=== PATIENT | male | born 1940 | race Caucasian/White ===

== ENCOUNTER 2019-06-10 09:32 | Outpatient (CLI) | payer MEDICARE, SELFPAY ==
[2019-06-10 11:15] LABS: Anion Gap 16.1 mmol/L (7-16); Blood Urea Nitrogen 46 mg/dL (7-18); Calcium 8.7 mg/dL (8.5-10.1); Carbon Dioxide 24 mmol/L (21-32); Chloride 109 mmol/L (98-108); Estimated Glomerular Filt Rate 30; Glucose 79 mg/dL (70-99); Osmolality Calculated 308 mOsm/kg (285-295); Potassium 5.1 mmol/L (3.5-5.1); Sodium 144 mmol/L (136-145)
== END 2019-06-10 09:33 | disposition home or self-care (01) ==
PROVIDERS: PCP Family Medicine; Visit Provider Family Medicine
DX: E87.5 Hyperkalemia (principal)
CPT/HCPCS: 36415; 80048

== ENCOUNTER 2019-06-11 11:07 | Outpatient (CLI) | payer MEDICARE, OTHER, SELFPAY ==
--- NOTE | 2019-06-11 11:09 | ECG_ITS ---
Measurements Intervals [place] Rate: 76 P: 77 WI: 240 QRS: 82 QRSD: 95 T: 8 QT: 337 QTc: 379 Interpretive Statements SINUS RHYTHM WITH FIRST DEGREE AV BLOCK DELAYED PRECORDIAL R/S TRANSITION BORDERLINE ST-T WAVE ABNORMALITY- INFERIOR LEADS BASELINE ARTIFACT- II, III, AVL ABNORMAL ECG Electronically Signed On 06-11-2019 11:27:52 ROLL LINE OPERATOR by Bryant Evans D.O.
[2019-06-11 11:52] LABS: BNP 96.4 pg/mL (0-100)
== END 2019-06-11 11:08 | disposition home or self-care (01) ==
PROVIDERS: PCP Family Medicine; Visit Provider Family Medicine
DX: Z01.810 Encounter for preprocedural cardiovascular examination (principal); I10 Essential (primary) hypertension
CPT/HCPCS: 36415; 83880; 93005

== ENCOUNTER 2019-07-01 11:33 | Outpatient (CLI) | payer MEDICARE, OTHER, SELFPAY ==
--- NOTE | 2019-07-01 12:30 | ECHO_ITS ---
Patient Info Name: Villa Rush Age: 79 years : 1940 Gender: Male Ht: 69 in Wt: 181 lbs BSA: 2.01 m2 HR: 80 bpm BP: 143 / 86 mmHg Heart Rhythm: Sinus Rhythm Technical Quality: Good Exam Date: 07/01/2019 12:26 PM Exam Location: [facility], [place] Patient Status: Outpatient Admit Date: 07/01/2019 Staff Ordering Physician: Savannah Patten MD Program Counselor: Villa Love RDCS Attending Provider: Savannah Patten MD Referring Physician: Sandor ALVAREZ; Exam Type: CA echo doppler color flow Study Info Indications I35.0 - Nonrheumatic aortic (valve) stenosis Complete two-dimensional, color flow and Doppler transthoracic echocardiogram is performed. Strain analysis performed. History/Risk Factors Aortic stenosis. Summary 1. Left ventricular chamber dimension is normal. 2. Left ventricular systolic function is normal, estimated at 65-70%. 3. The left ventricular diastolic function is abnormal. 4. E/e' 10 is mildly elevated. 5. Global longitudinal strain is normal at -17.0%. 6. Left atrial chamber dimension is mildly enlarged. 7. The aortic valve is not well visualized. 8. There is moderate aortic valve stenosis by a peak velocity of 377 cm/s, mean gradient of 30 mmHg, and aortic valve area of 1.1 cm2. 9. There is moderate aortic valve sclerosis. Left Ventricle E/e' 10 is mildly elevated. Global longitudinal strain is normal at -17.0%. Left ventricular chamber dimension is normal. Left ventricular systolic function is normal, estimated at 65-70%. The left ventricular diastolic function is abnormal. Right Ventricle Right ventricular chamber dimension is normal. Right ventricular systolic function is normal. Left Atria Left atrial chamber dimension is mildly enlarged. Right Atria Right atrial chamber dimension is normal. Aortic Valve There is moderate aortic valve stenosis by a peak velocity of 377 cm/s, mean gradient of 30 mmHg, and aortic valve area of 1.1 cm2. Cannot determine number of aortic valve leaflets. The aortic valve is not well visualized. There is moderate aortic valve sclerosis. There is no aortic valve regurgitation. Pulmonic Valve There is no pulmonic regurgitation. Mitral Valve There is no mitral valve stenosis. There is no mitral valve regurgitation. Tricuspid Valve There is no tricuspid valve regurgitation. Pericardium/Pleural There is no pericardial effusion. Inferior Vena Cava Normal inferior vena cava with >50% collapse upon inspiration consistent with normal right atrial pressure, 5 mmHg. Aorta The aortic root size at the sinus of Valsalva is normal. Left Ventricular Outflow Tract Name Value Normal LVOT 2D LVOT Diameter 2.2 cm LVOT Doppler LVOT Peak Velocity 106 cm/s LVOT Peak Gradient 4 mmHg LVOT Mean Gradient 2 mmHg LVOT VTI 26 cm LVOT VTI/AV VTI Ratio 0.3 LVOT Stroke Volume 98 ml Mitral Valve
== END 2019-07-01 11:34 | disposition home or self-care (01) ==
LOC: CHSIMG 11:35
PROVIDERS: PCP Family Medicine; Visit Provider Internal Medicine Nephrology
DX: N18.3 Chronic kidney disease, stage 3 (moderate) (principal); D63.8 Anemia in other chronic diseases classified elsewhere; R80.8 Other proteinuria; E11.21 Type 2 diabetes mellitus with diabetic nephropathy; E11.65 Type 2 diabetes mellitus with hyperglycemia; I12.9 Hypertensive chronic kidney disease with stage 1 through stage 4 chronic kidney disease, or unspecified chronic kidney disease; H40.9 Unspecified glaucoma; I20.9 Angina pectoris, unspecified; E78.2 Mixed hyperlipidemia; K21.9 Gastro-esophageal reflux disease without esophagitis; Z87.442 Personal history of urinary calculi; I38 Endocarditis, valve unspecified; E87.5 Hyperkalemia
CPT/HCPCS: 93306

== ENCOUNTER 2019-07-22 12:32 | Outpatient (CLI) | payer MEDICARE, SELFPAY ==
[2019-07-22 13:15] LABS: Albumin Level 3.7 g/dL (3.4-5.0); Blood Urea Nitrogen 30 mg/dL (7-18); Calcium 9.2 mg/dL (8.5-10.1); Carbon Dioxide 31 mmol/L (21-32); Chloride 106 mmol/L (98-108); Estimated Glomerular Filt Rate 36; Glucose 108 mg/dL (70-99); Osmolality Calculated 307 mOsm/kg (285-295); Phosphorus 3.2 mg/dL (2.6-4.7); Sodium 145 mmol/L (136-145)
== END 2019-07-22 12:33 | disposition home or self-care (01) ==
LOC: CHSLAB 12:35
PROVIDERS: PCP Family Medicine; Visit Provider Internal Medicine Nephrology
DX: I12.9 Hypertensive chronic kidney disease with stage 1 through stage 4 chronic kidney disease, or unspecified chronic kidney disease (principal); N18.3 Chronic kidney disease, stage 3 (moderate); D63.8 Anemia in other chronic diseases classified elsewhere; R80.9 Proteinuria, unspecified; E11.21 Type 2 diabetes mellitus with diabetic nephropathy; E11.65 Type 2 diabetes mellitus with hyperglycemia; H40.9 Unspecified glaucoma; I20.9 Angina pectoris, unspecified; E78.2 Mixed hyperlipidemia; K21.9 Gastro-esophageal reflux disease without esophagitis; Z87.442 Personal history of urinary calculi; I38 Endocarditis, valve unspecified; E87.5 Hyperkalemia
CPT/HCPCS: 36415; 80069

== ENCOUNTER 2019-07-23 10:45 | Outpatient (CLI) | payer MEDICARE, SELFPAY ==
[2019-07-23 11:40] LABS: Albumin Level 3.7 g/dL (3.4-5.0); Blood Urea Nitrogen 27 mg/dL (7-18); Carbon Dioxide 33 mmol/L (21-32); Chloride 107 mmol/L (98-108); Estimated Glomerular Filt Rate 37; Glucose 90 mg/dL (70-99); Osmolality Calculated 303 mOsm/kg (285-295); Phosphorus 3.2 mg/dL (2.6-4.7); Sodium 144 mmol/L (136-145)
== END 2019-07-23 10:46 | disposition home or self-care (01) ==
PROVIDERS: PCP Family Medicine; Visit Provider Internal Medicine Nephrology
DX: I12.9 Hypertensive chronic kidney disease with stage 1 through stage 4 chronic kidney disease, or unspecified chronic kidney disease (principal); N18.3 Chronic kidney disease, stage 3 (moderate); D63.8 Anemia in other chronic diseases classified elsewhere; R80.9 Proteinuria, unspecified; E11.21 Type 2 diabetes mellitus with diabetic nephropathy; E11.65 Type 2 diabetes mellitus with hyperglycemia; H40.9 Unspecified glaucoma; I20.9 Angina pectoris, unspecified; E78.2 Mixed hyperlipidemia; K21.9 Gastro-esophageal reflux disease without esophagitis; Z87.442 Personal history of urinary calculi; I38 Endocarditis, valve unspecified; E87.5 Hyperkalemia
CPT/HCPCS: 36415; 80069

== ENCOUNTER 2019-09-28 13:00 | Outpatient (CLI) | payer MEDICARE, OTHER, SELFPAY ==
--- NOTE | ~2019-09-28 | US_ITS ---
EXAMINATION: US venous doppler [facility] DATE: 09/28/2019 14:00 INDICATION: Lower limb swelling. TECHNIQUE: Grayscale ultrasound images without and with compression and Doppler ultrasound images of the bilateral lower extremity veins were obtained. COMPARISON: None. FINDINGS: The visualized portions of right common femoral vein, profunda (deep) femoral vein, femoral vein, pop liteal vein, peroneal veins, posterior tibial veins, and greater saphenous vein outflow are patent. The visualized portions of left common femoral vein, profunda femoral vein, femoral vein, popliteal v ein, peroneal veins, posterior tibial veins, and greater saphenous vein outflow are patent. IMPRESSION: 1. No deep venous thrombosis. Reviewed, dictated and finalized at location A.
== END 2019-09-28 13:01 | disposition home or self-care (01) ==
PROVIDERS: PCP Family Medicine; Visit Provider Orthopaedic Surgery
DX: R60.0 Localized edema (principal)
CPT/HCPCS: 93970

== ENCOUNTER 2019-10-01 09:46 | Outpatient (CLI) | payer MEDICARE, OTHER, SELFPAY ==
--- NOTE | 2019-10-01 09:58 | ECHO_ITS ---
Patient Info Name: Villa Rush Age: 79 years : 1940 Gender: Male Ht: 68 in Wt: 170 lbs BSA: 1.94 m2 HR: 68 bpm BP: 153 / 55 mmHg Heart Rhythm: Sinus Rhythm Technical Quality: Poor Exam Date: 10/01/2019 11:41 AM Exam Location: [facility], [place] Patient Status: Outpatient Admit Date: 10/01/2019 Staff Ordering Physician: Sam Alfaro DO Certified Histologic Technician: Christal Rmoo RDCS Attending Provider: Sam Alfaro DO Referring Physician: Angelina GOLD; Exam Type: CA echo doppler color flow Study Info Indications I10 - Essential (primary) hypertension Complete two-dimensional, color flow and Doppler transthoracic echocardiogram is performed. Strain analysis performed. Reason for Poor Study: poor echocardiographic windows History/Risk Factors Hypertension: Yes Dyslipidemia: No Congenital Heart Disease (CHD): No Diabetic Therapy: Oral Peripheral Arterial Disease (PAD): No Myocardial Infarction (TN): No Chronic Lung Disease: No Obesity: No Renal Disease: Yes Coronary Artery Disease (CAD) No Congestive Heart Failure (CHF): No Cardiomyopathy/LV Systolic Dysfunction: No Diabetes Mellitus: Type II COPD: No Tobacco Use: Former Cerebrovascular Disease: No Family History: Diabetes Mellitus Deep Vein Thrombosis (DVT): None Dialysis: None Frailty Scale (CSHA): 4: Vulnerable Cardiac Arrest: No Summary 1. Left ventricular chamber dimension is normal. 2. Left ventricular systolic function is normal, estimated at 65-70%. 3. There is mildly increased left ventricular wall thickness. 4. The left ventricular diastolic function is normal. 5. Global longitudinal strain is normal at -17.3%. 6. Left atrial chamber dimension is mildly enlarged. 7. There is moderate aortic valve sclerosis. 8. There is mild to moderate aortic valve stenosis with a peak velocity of 323 cm/s, mean gradient of 21 mmHg, and aortic valve area of 1.8 cm2. 9. There is trace tricuspid valve regurgitation. 10. No pulmonary hypertension, estimated pulmonary arterial systolic pressure is 32 mmHg. Recommendations * Continue medical therapy for diabetes. Left Ventricle Tissue doppler is not performed. Global longitudinal strain is normal at -17.3%. Left ventricular chamber dimension is normal. Left ventricular systolic function is normal, estimated at 65-70%. There is mildly increased left ventricular wall thickness. The left ventricular diastolic function is normal. Right Ventricle Right ventricular chamber dimension is normal. Right ventricular systolic function is normal. Left Atria Left atrial chamber dimension is mildly enlarged. Right Atria Right atrial chamber dimension is normal. Aortic Valve The aortic valve is trileaflet. There is moderate aortic valve sclerosis. There is mild to moderate aortic valve stenosis with a peak velocity of 323 cm/s, mean gradient of 21 mmHg, and aortic valve area of 1.8 cm2. There is no aortic valve regurgitation. Pulmonic Valve There is no pulmonic regurgitation. Mitral Valve There is no mitral valve stenosis. There is no mitral valve regurgitation. Tricuspid Valve There is trace tricuspid valve regurgitation. No pulmonary hypertension, estimated pulmonary arterial systolic pressure is 32 mmHg. Pericardium/Pleural There is no pericardial effusion. Inferior Vena Cava Dilated inferior vena cava with >50% collapse up
[2019-10-01 10:02] LABS: Hematocrit 24.9 % (37.0-46.0); Hemoglobin 8.1 g/dL (12.4-15.3); Mean Corpuscular HGB Conc 32.5 g/dL (32.0-36.0); Mean Corpuscular Hemoglobin 31.3 pg (27.0-31.0); Mean Corpuscular Volume 96.1 fL (78.0-102.0); Mean Platelet Volume 9.3 fl (8.7-11.0); Platelet Count Result 327 K/mm3 (150-420); Red Blood Count 2.59 M/mm3 (4.70-6.10); Red Cell Distribution Width 13.1 % (11.6-14.4); White Blood Count 8.1 K/mm3 (4.8-10.8)
[2019-10-01 10:24] LABS: BNP 728 pg/mL (0-100)
[2019-10-01 10:32] LABS: Alanine Aminotransferase 38 U/L (16-63); Albumin Level 2.5 g/dL (3.4-5.0); Alkaline Phosphatase 64 U/L (46-116); Anion Gap 14.8 mmol/L (7-16); Aspartate Amino Transferase 38 U/L (15-37); Bilirubin,Total 0.2 mg/dL (0.00-1.00); Blood Urea Nitrogen 25 mg/dL (7-18); Calcium 7.9 mg/dL (8.5-10.1); Carbon Dioxide 25 mmol/L (21-32); Chloride 109 mmol/L (98-108); Estimated Glomerular Filt Rate 36; Glucose 64 mg/dL (70-99); Osmolality Calculated 302 mOsm/kg (285-295); Potassium 3.8 mmol/L (3.5-5.1); Sodium 145 mmol/L (136-145); Total Protein 5.6 g/dL (6.4-8.2)
== END 2019-10-01 09:47 | disposition home or self-care (01) ==
LOC: CHSIMG 09:51
PROVIDERS: PCP Family Medicine; Visit Provider Family Medicine
DX: I10 Essential (primary) hypertension (principal); R60.0 Localized edema; E11.9 Type 2 diabetes mellitus without complications
CPT/HCPCS: 36415; 80053; 83036; 83880; 85027; 93306

== ENCOUNTER 2019-10-02 07:04 | Outpatient (CLI) | payer MEDICARE, OTHER, SELFPAY ==
--- NOTE | ~2019-10-02 | XR_ITS ---
XR chest 2V 10/02/2019 07:46 Indication: Dyspnea. Procedure: PA and lateral views of the chest Comparison: 07/11/2014 Findings: Heart size normal. No focal air space disease, pulmonary edema, pleural effusion or suspect ed pneumothorax. No acute osseous abnormality. Impression: 1: No acute cardiopulmonary disease. Reviewed, dictated and finalized at location A. Impression: 1: No acute cardiopulmonary disease.
--- NOTE | 2019-10-02 07:35 | ECG_ITS ---
Measurements Intervals [place] Rate: 61 P: 66 PA: 214 QRS: 31 QRSD: 107 T: 44 QT: 407 QTc: 412 Interpretive Statements SINUS RHYTHM WITH FIRST DEGREE AV BLOCK BASELINE ARTIFACT- I, II, III, AVR, AVL, AVF, V1-V6 ABNORMAL ECG Electronically Signed On 10-02-2019 17:47:11 CDT by Bryant Evans D.O.
== END 2019-10-02 07:05 | disposition home or self-care (01) ==
PROVIDERS: PCP Family Medicine; Visit Provider Nurse Practitioner Family
DX: R79.89 Other specified abnormal findings of blood chemistry (principal)
CPT/HCPCS: 71046; 93005

== ENCOUNTER 2019-10-04 08:56 | Outpatient (CLI) | payer MEDICARE, SELFPAY ==
[2019-10-04 09:11] LABS: Hemoglobin 8.1 g/dL (12.4-15.3); Mean Corpuscular HGB Conc 32.4 g/dL (32.0-36.0); Mean Corpuscular Hemoglobin 31.3 pg (27.0-31.0); Mean Corpuscular Volume 96.5 fL (78.0-102.0); Mean Platelet Volume 9.3 fl (8.7-11.0); Platelet Count Result 336 K/mm3 (150-420); Red Blood Count 2.59 M/mm3 (4.70-6.10); Red Cell Distribution Width 13.3 % (11.6-14.4); White Blood Count 6.7 K/mm3 (4.8-10.8)
[2019-10-04 10:38] LABS: Blood Urea Nitrogen 20 mg/dL (7-18); Calcium 8.3 mg/dL (8.5-10.1); Carbon Dioxide 29 mmol/L (21-32); Chloride 107 mmol/L (98-108); Estimated Glomerular Filt Rate 35; Ferritin 210 ng/mL (26-388); Glucose 64 mg/dL (70-99); Iron 47 ug/dL (65-175); Osmolality Calculated 298 mOsm/kg (285-295); Percent Iron Saturation 25 % (12-57); Sodium 144 mmol/L (136-145)
== END 2019-10-04 08:57 | disposition home or self-care (01) ==
LOC: CHSLAB 08:59
PROVIDERS: PCP Family Medicine; Visit Provider Family Medicine
DX: D64.9 Anemia, unspecified (principal); M79.89 Other specified soft tissue disorders; E11.9 Type 2 diabetes mellitus without complications
CPT/HCPCS: 36415; 80048; 82728; 83540; 83550; 85027

== ENCOUNTER 2019-10-05 07:40 | Outpatient (CLI) | payer MEDICARE, SELFPAY ==
[2019-10-05 07:57] LABS: Occult Blood Negative (Negative)
== END 2019-10-05 07:41 | disposition home or self-care (01) ==
PROVIDERS: PCP Family Medicine; Visit Provider Family Medicine
DX: D64.9 Anemia, unspecified (principal)
CPT/HCPCS: 82272

== ENCOUNTER 2019-10-16 10:06 | Outpatient (CLI) | payer MEDICARE, SELFPAY ==
[2019-10-16 10:23] LABS: Add Urine Microscopic? YES; Appearance Urine Clear (Clear); Bilirubin Urine Negative (Negative); Blood Urine 1+ (Negative); Color Urine Yellow (Yellow); Glucose Urine UA Negative (Negative); Ketones Urine Negative (Negative); Leukocyte Esterase Ur Negative LEU/UL (Negative); Nitrate Urine Negative (Negative); Protein Urine 3+ (Negative); Specific Grav Ur 1.025 (1.010-1.020); Urobilinogen Urine 0.2 mg/dL (0.2-1.0)
[2019-10-16 10:29] LABS: Basophils Absolute Auto 0.03 K/mm3 (0.00-0.10); Basophils Percent Auto 0.5 % (0.0-1.0); Eosinophils Absolute Auto 0.33 K/mm3 (0.02-0.50); Eosinophils Percent Auto 5.9 % (1.0-6.0); Hematocrit 29.6 % (37.0-46.0); Hemoglobin 9.4 g/dL (12.4-15.3); Immature Granulocyte Absolute 0.02 K/mm3 (0.00-0.00); Immature Granulocyte Percent A 0.4 % (0.0-0.0); Lymphocytes Absolute Auto 1.26 K/mm3 (1.10-4.50); Lymphocytes Percent Auto 22.3 % (18.0-42.0); Mean Corpuscular HGB Conc 31.8 g/dL (32.0-36.0); Mean Corpuscular Hemoglobin 31.4 pg (27.0-31.0); Mean Platelet Volume 9.6 fl (8.7-11.0); Monocytes Absolute Auto 0.44 K/mm3 (0.10-0.90); Monocytes Percent Auto 7.8 % (2.0-11.0); Neutrophils Absolute Auto 3.6 K/mm3 (1.7-7.2); Neutrophils Percent Auto 63.1 % (50.0-70.0); Platelet Count Result 289 K/mm3 (150-420); Red Blood Count 2.99 M/mm3 (4.70-6.10); Red Cell Distribution Width 13.7 % (11.6-14.4); White Blood Count 5.6 K/mm3 (4.8-10.8)
[2019-10-16 10:30] LABS: Bacteria Urine Trace /hpf; RBC Urine 0-2 /hpf (0-2); Squamous Epithelial Cell Urine Rare /hpf (Few); WBC Urine 0-3 /hpf (0-3)
[2019-10-16 10:35] LABS: Creatinine Urine 187.12 mg/dL (40-278); Total Protein Urine Random > 250.0 mg/dL (0.0-11.9)
[2019-10-16 11:01] LABS: Alanine Aminotransferase 18 U/L (16-63); Albumin Level 3.4 g/dL (3.4-5.0); Alkaline Phosphatase 92 U/L (46-116); Anion Gap 10.7 mmol/L (7-16); Aspartate Amino Transferase 18 U/L (15-37); Bilirubin,Total 0.2 mg/dL (0.00-1.00); Blood Urea Nitrogen 23 mg/dL (7-18); Calcium 8.4 mg/dL (8.5-10.1); Carbon Dioxide 31 mmol/L (21-32); Chloride 104 mmol/L (98-108); Estimated Glomerular Filt Rate 43; Glucose 122 mg/dL (70-99); Osmolality Calculated 296 mOsm/kg (285-295); Phosphorus 3.5 mg/dL (2.6-4.7); Potassium 4.7 mmol/L (3.5-5.1); Sodium 141 mmol/L (136-145); Total Protein 6.8 g/dL (6.4-8.2); Uric Acid 5.1 mg/dL (3.5-7.2)
[2019-10-19 19:08] LABS: Vitamin D 25 Hydroxy 44 ng/mL (30-100)
[2019-10-20 14:18] LABS: Parathyroid Intact 103 pg/mL (14-64)
== END 2019-10-16 10:07 | disposition home or self-care (01) ==
LOC: CHSLAB 10:09
PROVIDERS: PCP Family Medicine; Visit Provider Internal Medicine Nephrology
DX: E78.2 Mixed hyperlipidemia (principal); D63.8 Anemia in other chronic diseases classified elsewhere; I12.9 Hypertensive chronic kidney disease with stage 1 through stage 4 chronic kidney disease, or unspecified chronic kidney disease; N18.3 Chronic kidney disease, stage 3 (moderate); R80.9 Proteinuria, unspecified; E11.21 Type 2 diabetes mellitus with diabetic nephropathy; E11.65 Type 2 diabetes mellitus with hyperglycemia; H40.9 Unspecified glaucoma; I20.9 Angina pectoris, unspecified; K21.9 Gastro-esophageal reflux disease without esophagitis; Z87.442 Personal history of urinary calculi; I38 Endocarditis, valve unspecified; E87.5 Hyperkalemia
CPT/HCPCS: 36415; 80053; 81001; 82306; 82570; 83970; 84100; 84156; 84550; 85025

== ENCOUNTER 2019-12-21 10:58 | Outpatient (CLI) | payer MEDICARE, SELFPAY ==
[2019-12-21 11:16] LABS: Hematocrit 34.7 % (37.0-46.0); Hemoglobin 11.1 g/dL (12.4-15.3); Mean Corpuscular Hemoglobin 31.6 pg (27.0-31.0); Mean Corpuscular Volume 98.9 fL (78.0-102.0); Mean Platelet Volume 10.3 fl (8.7-11.0); Platelet Count Result 220 K/mm3 (150-420); Red Blood Count 3.51 M/mm3 (4.70-6.10); Red Cell Distribution Width 12.8 % (11.6-14.4); White Blood Count 6.8 K/mm3 (4.8-10.8)
[2019-12-21 12:01] LABS: Alanine Aminotransferase 16 U/L (16-63); Albumin Level 3.3 g/dL (3.4-5.0); Alkaline Phosphatase 84 U/L (46-116); Anion Gap 7 mmol/L (8-16); Aspartate Amino Transferase 20 U/L (15-37); Bilirubin,Total 0.4 mg/dL (0.00-1.00); Blood Urea Nitrogen 22 mg/dL (7-18); Calcium 8.9 mg/dL (8.5-10.1); Carbon Dioxide 30 mmol/L (21-32); Chloride 105 mmol/L (98-108); Estimated Glomerular Filt Rate 44; Glucose 122 mg/dL (70-99); Osmolality Calculated 298 mOsm/kg (285-295); Potassium 4.5 mmol/L (3.5-5.1); Sodium 142 mmol/L (136-145); Total Protein 6.8 g/dL (6.4-8.2)
[2019-12-24 14:34] LABS: Prealbumin 21 mg/dL (21-43)
== END 2019-12-21 10:59 | disposition home or self-care (01) ==
PROVIDERS: PCP Family Medicine; Visit Provider Family Medicine
DX: D64.9 Anemia, unspecified (principal); R63.4 Abnormal weight loss; I10 Essential (primary) hypertension
CPT/HCPCS: 36415; 80053; 84134; 85027

== ENCOUNTER 2019-12-24 09:17 | Outpatient (CLI) | payer MEDICARE, SELFPAY ==
[2019-12-24 10:21] LABS: Occult Blood Negative (Negative)
== END 2019-12-24 09:18 | disposition home or self-care (01) ==
LOC: CHSLAB 09:19
PROVIDERS: PCP Family Medicine; Visit Provider Family Medicine
DX: D64.9 Anemia, unspecified (principal)
CPT/HCPCS: 82272

== ENCOUNTER 2019-12-28 08:48 | Outpatient (CLI) | payer MEDICARE, OTHER, SELFPAY ==
--- NOTE | ~2019-12-28 | MM_ITS ---
EXAMINATION: MM diagnostic mammo BI HISTORY: Palpable subareolar left breast lump TECHNIQUE: Full field craniocaudal and mediolateral oblique views of the left breast were obtained. M ediolateral oblique view of the right breast is obtained for comparison. CAD analysis was submitted and interpreted. COMPARISON: None BREAST PARENCHYMAL COMPOSITION: The breasts are almost entirely fatty. FINDINGS: There is a flame-shaped mass in the subareolar aspect of the left breast which has the appe arance of asymmetric gynecomastia. A less prominent finding is noted in the subareolar aspect of the right breast. IMPRESSION: 1. Findings consistent with asymmetric gynecomastia of the left breast. Further evaluation at this ti me should be based on clinical assessment. Continued follow-up physical examination is recommended. BI-RADS Category 2: Benign finding(s). Reviewed, dictated and finalized at location A. IMPRESSION: 1. Findings consistent with asymmetric gynecomastia of the left breast. Further evaluation at this time should be based on clinical assessment. Continued foll ow-up physical examination is recommended. BI-RADS Category 2: Benign finding(s).
[2019-12-28 09:58] LABS: Ferritin 30 ng/mL (26-388); Iron 49 ug/dL (65-175); Percent Iron Saturation 18 % (12-57)
== END 2019-12-28 08:49 | disposition home or self-care (01) ==
LOC: CHSIMG 08:52
PROVIDERS: PCP Family Medicine; Visit Provider Family Medicine
DX: N64.89 Other specified disorders of breast (principal); D64.9 Anemia, unspecified; E10.22 Type 1 diabetes mellitus with diabetic chronic kidney disease; N18.3 Chronic kidney disease, stage 3 (moderate)
CPT/HCPCS: 36415; 77066; 82728; 83540; 83550; 84443

== ENCOUNTER 2020-01-05 09:53 | Outpatient (CLI) | payer MEDICARE, SELFPAY ==
[2020-01-05 10:27] LABS: Hemoglobin A1C 6.6 % (<5.7)
== END 2020-01-05 09:54 | disposition home or self-care (01) ==
LOC: CHSLAB 09:55
PROVIDERS: PCP Family Medicine; Visit Provider Family Medicine
DX: E10.22 Type 1 diabetes mellitus with diabetic chronic kidney disease (principal); N18.3 Chronic kidney disease, stage 3 (moderate)
CPT/HCPCS: 36415; 83036

== ENCOUNTER 2020-04-06 09:54 | Outpatient (CLI) | payer MEDICARE, SELFPAY ==
[2020-04-06 10:06] LABS: Hemoglobin 11.2 g/dL (12.4-15.3); Mean Corpuscular Hemoglobin 30.8 pg (27.0-31.0); Mean Corpuscular Volume 96.2 fL (78.0-102.0); Mean Platelet Volume 9.1 fl (8.7-11.0); Platelet Count Result 196 K/mm3 (150-420); Red Blood Count 3.64 M/mm3 (4.70-6.10); White Blood Count 6.9 K/mm3 (4.8-10.8)
[2020-04-06 10:35] LABS: Hemoglobin A1C 6.7 % (<5.7)
== END 2020-04-06 09:55 | disposition home or self-care (01) ==
PROVIDERS: PCP Family Medicine; Visit Provider Family Medicine
DX: E11.9 Type 2 diabetes mellitus without complications (principal); I10 Essential (primary) hypertension
CPT/HCPCS: 36415; 83036; 85027

== ENCOUNTER 2020-05-09 10:00 | Outpatient (CLI) | payer MEDICARE, SELFPAY ==
[2020-05-09 10:17] LABS: Add Urine Microscopic? YES; Appearance Urine Clear (Clear); Basophils Absolute Auto 0.03 K/mm3 (0.00-0.10); Basophils Percent Auto 0.4 % (0.0-1.0); Bilirubin Urine Negative (Negative); Blood Urine 1+ (Negative); Color Urine Yellow (Yellow); Eosinophils Absolute Auto 0.35 K/mm3 (0.02-0.50); Eosinophils Percent Auto 4.8 % (1.0-6.0); Glucose Urine UA Negative (Negative); Hematocrit 34.4 % (37.0-46.0); Hemoglobin 10.9 g/dL (12.4-15.3); Immature Granulocyte Absolute 0.02 K/mm3 (0.00-0.00); Immature Granulocyte Percent A 0.3 % (0.0-0.0); Ketones Urine Negative (Negative); Leukocyte Esterase Ur Negative LEU/UL (Negative); Lymphocytes Absolute Auto 1.28 K/mm3 (1.10-4.50); Lymphocytes Percent Auto 17.6 % (18.0-42.0); Mean Corpuscular HGB Conc 31.7 g/dL (32.0-36.0); Mean Corpuscular Hemoglobin 30.4 pg (27.0-31.0); Mean Corpuscular Volume 95.8 fL (78.0-102.0); Mean Platelet Volume 10.2 fl (8.7-11.0); Monocytes Absolute Auto 0.59 K/mm3 (0.10-0.90); Monocytes Percent Auto 8.1 % (2.0-11.0); Neutrophils Percent Auto 68.8 % (50.0-70.0); Nitrate Urine Negative (Negative); Platelet Count Result 210 K/mm3 (150-420); Protein Urine 3+ (Negative); Red Blood Count 3.59 M/mm3 (4.70-6.10); Red Cell Distribution Width 12.7 % (11.6-14.4); Specific Grav Ur 1.025 (1.010-1.020); Urobilinogen Urine 0.2 mg/dL (0.2-1.0); White Blood Count 7.3 K/mm3 (4.8-10.8)
[2020-05-09 10:22] LABS: RBC Urine 0-2 /hpf (0-2); Squamous Epithelial Cell Urine Few /hpf (Few); WBC Urine None seen /hpf (0-3)
[2020-05-09 10:23] LABS: Bacteria Urine Trace /hpf
[2020-05-09 10:29] LABS: Creatinine Urine 66.93 mg/dL (40-278)
[2020-05-09 10:55] LABS: Ur Ttl Prot Creatinine Ratio 3.74 mg/mg (0-0.20)
[2020-05-09 10:56] LABS: Total Protein Urine Random > 250.0 mg/dL (0.0-11.9)
[2020-05-09 11:19] LABS: Alanine Aminotransferase 17 U/L (16-63); Albumin Level 3.2 g/dL (3.4-5.0); Alkaline Phosphatase 74 U/L (46-116); Anion Gap 6 mmol/L (8-16); Aspartate Amino Transferase 19 U/L (15-37); Bilirubin,Total 0.3 mg/dL (0.00-1.00); Blood Urea Nitrogen 25 mg/dL (7-18); Calcium 9.2 mg/dL (8.5-10.1); Carbon Dioxide 29 mmol/L (21-32); Chloride 104 mmol/L (98-108); Estimated Glomerular Filt Rate 41; Glucose 131 mg/dL (70-99); Osmolality Calculated 294 mOsm/kg (285-295); Phosphorus 4.2 mg/dL (2.6-4.7); Potassium 4.6 mmol/L (3.5-5.1); Prostate Specific Antigen 0.7 ng/mL (< OR = 4.0); Sodium 139 mmol/L (136-145); Total Protein 6.3 g/dL (6.4-8.2); Uric Acid 4.7 mg/dL (3.5-7.2)
[2020-05-12 14:44] LABS: Parathyroid Intact 39 pg/mL (14-64)
[2020-05-16 13:09] LABS: Vitamin D 25 Hydroxy 34 ng/mL (30-100)
== END 2020-05-09 10:01 | disposition home or self-care (01) ==
LOC: CHSLAB 10:03
PROVIDERS: PCP Family Medicine; Visit Provider Internal Medicine Nephrology
DX: K21.9 Gastro-esophageal reflux disease without esophagitis (principal); I12.9 Hypertensive chronic kidney disease with stage 1 through stage 4 chronic kidney disease, or unspecified chronic kidney disease; N18.30 Chronic kidney disease, stage 3 unspecified; D63.8 Anemia in other chronic diseases classified elsewhere; R80.9 Proteinuria, unspecified; E11.65 Type 2 diabetes mellitus with hyperglycemia; H40.9 Unspecified glaucoma; I20.9 Angina pectoris, unspecified; E78.2 Mixed hyperlipidemia; Z87.442 Personal history of urinary calculi; I38 Endocarditis, valve unspecified; E87.5 Hyperkalemia; Z12.5 Encounter for screening for malignant neoplasm of prostate
CPT/HCPCS: 36415; 80053; 81001; 82306; 82570; 83970; 84100; 84153; 84156; 84550; 85025; G0103

== ENCOUNTER 2020-07-06 10:26 | Outpatient (CLI) | payer MEDICARE, SELFPAY ==
[2020-07-06 10:47] LABS: Hemoglobin A1C 6.8 % (<5.7)
== END 2020-07-06 10:27 | disposition home or self-care (01) ==
PROVIDERS: PCP Family Medicine; Visit Provider Family Medicine
DX: E11.9 Type 2 diabetes mellitus without complications (principal)
CPT/HCPCS: 36415; 83036

== ENCOUNTER 2020-10-17 10:34 | Outpatient (CLI) | payer MEDICARE, SELFPAY ==
[2020-10-17 10:49] LABS: Basophils Absolute Auto 0.03 K/mm3 (0.00-0.10); Basophils Percent Auto 0.5 % (0.0-1.0); Eosinophils Absolute Auto 0.34 K/mm3 (0.02-0.50); Eosinophils Percent Auto 6.2 % (1.0-6.0); Hematocrit 35.4 % (37.0-46.0); Hemoglobin 11.5 g/dL (12.4-15.3); Immature Granulocyte Absolute 0.02 K/mm3 (0.00-0.00); Immature Granulocyte Percent A 0.4 % (0.0-0.0); Lymphocytes Absolute Auto 1.35 K/mm3 (1.10-4.50); Lymphocytes Percent Auto 24.5 % (18.0-42.0); Mean Corpuscular HGB Conc 32.5 g/dL (32.0-36.0); Mean Corpuscular Volume 95.4 fL (78.0-102.0); Mean Platelet Volume 10.4 fl (8.7-11.0); Monocytes Absolute Auto 0.47 K/mm3 (0.10-0.90); Monocytes Percent Auto 8.5 % (2.0-11.0); Neutrophils Absolute Auto 3.3 K/mm3 (1.7-7.2); Neutrophils Percent Auto 59.9 % (50.0-70.0); Platelet Count Result 200 K/mm3 (150-420); Red Blood Count 3.71 M/mm3 (4.70-6.10); Red Cell Distribution Width 12.9 % (11.6-14.4); White Blood Count 5.5 K/mm3 (4.8-10.8)
[2020-10-17 10:50] LABS: Appearance Urine Clear (Clear); Bilirubin Urine Negative (Negative); Color Urine Yellow (Yellow); Glucose Urine UA Negative (Negative); Ketones Urine Trace (Negative); Leukocyte Esterase Ur Negative LEU/UL (Negative); Nitrate Urine Negative (Negative); Protein Urine 3+ (Negative); Specific Grav Ur >= 1.030 (1.010-1.020); Urobilinogen Urine 0.2 mg/dL (0.2-1.0); pH Urine 5.5 (5.0-8.0)
[2020-10-17 11:05] LABS: Add Urine Microscopic? YES; Blood Urine Trace-Intact (Negative)
[2020-10-17 11:06] LABS: Bacteria Urine Trace /hpf; Hemoglobin A1C 6.6 % (<5.7); RBC Urine None seen /hpf (0-2); Squamous Epithelial Cell Urine Few /hpf (Few); WBC Urine None seen /hpf (0-3)
[2020-10-17 11:07] LABS: Mucus Urine Few /lpf
[2020-10-17 11:21] LABS: Alanine Aminotransferase 22 U/L (16-63); Albumin Level 3.3 g/dL (3.4-5.0); Alkaline Phosphatase 78 U/L (46-116); Anion Gap 6 mmol/L (8-16); Aspartate Amino Transferase 17 U/L (15-37); Bilirubin,Total 0.5 mg/dL (0.00-1.00); Blood Urea Nitrogen 25 mg/dL (7-18); Calcium 9.4 mg/dL (8.5-10.1); Carbon Dioxide 30 mmol/L (21-32); Chloride 106 mmol/L (98-108); Estimated Glomerular Filt Rate 41; Glucose 116 mg/dL (70-99); Osmolality Calculated 299 mOsm/kg (285-295); Phosphorus 3.7 mg/dL (2.6-4.7); Potassium 4.5 mmol/L (3.5-5.1); Sodium 142 mmol/L (136-145); Total Protein 6.3 g/dL (6.4-8.2); Uric Acid 5.1 mg/dL (3.5-7.2)
[2020-10-17 11:28] LABS: Creatinine Urine 402.65 mg/dL (40-278); Total Protein Urine Random > 250.0 mg/dL (0.0-11.9); Ur Ttl Prot Creatinine Ratio 0.62 mg/mg (0-0.20)
[2020-10-20 12:25] LABS: Parathyroid Intact 71 pg/mL (14-64)
[2020-10-23 03:38] LABS: Vitamin D 25 Hydroxy 42 ng/mL (30-100)
== END 2020-10-17 10:35 | disposition home or self-care (01) ==
LOC: CHSLAB 10:37
PROVIDERS: PCP Family Medicine; Visit Provider Internal Medicine Nephrology
DX: E11.21 Type 2 diabetes mellitus with diabetic nephropathy (principal); I12.9 Hypertensive chronic kidney disease with stage 1 through stage 4 chronic kidney disease, or unspecified chronic kidney disease; N18.30 Chronic kidney disease, stage 3 unspecified; D63.8 Anemia in other chronic diseases classified elsewhere; R80.9 Proteinuria, unspecified; E11.65 Type 2 diabetes mellitus with hyperglycemia; H40.9 Unspecified glaucoma; I20.9 Angina pectoris, unspecified; E78.2 Mixed hyperlipidemia; K21.9 Gastro-esophageal reflux disease without esophagitis; Z87.442 Personal history of urinary calculi; E87.5 Hyperkalemia; I38 Endocarditis, valve unspecified
CPT/HCPCS: 36415; 80053; 81001; 82306; 82570; 83036; 83970; 84100; 84156; 84550; 85025

== ENCOUNTER 2021-01-26 13:56 | Outpatient (CLI) | payer MEDICARE, SELFPAY ==
[2021-01-26 14:20] LABS: Hemoglobin A1C 6.4 % (<5.7)
== END 2021-01-26 13:57 | disposition home or self-care (01) ==
LOC: CHSLAB 14:00
PROVIDERS: PCP Family Medicine; Visit Provider Family Medicine
DX: E11.9 Type 2 diabetes mellitus without complications (principal)
CPT/HCPCS: 36415; 83036

== ENCOUNTER 2021-02-15 13:40 | Outpatient (CLI) | payer MEDICARE, OTHER, SELFPAY ==
--- NOTE | ~2021-02-15 | XR_ITS ---
XR lumbar spine 2-3V DATE: 02/15/2021 14:10 INDICATION: Low back pain TECHNIQUE: AP, lateral, coned lateral lumbosacral views COMPARISON: 10/27/2018 lumbar spine FINDINGS: Since 10/27/2018 there is lumbar laminectomy, with posterior and interbody spinal fusion at L4-5. There is minimal chronic anterolisthesis at L4-5. Diffuse osteopenia. Severe degenerative disc disease is again noted at L1 to. There is minimal retrolisthesis at L2-3. Th ere is moderate degenerative disc disease at L3-4. The sacroiliac joints are intact. Abdominal aortic and iliac arterial calcification. Some probable faceted calcified gallstones overlying the right upper quadrant. IMPRESSION: Status post posterior and interbody spinal fusion at L4-5, lumbar laminectomy Osteopenia Chronic severe degenerative disc disease at L1 to Minimal retrolisthesis at L2-3 Moderate degenerative disc disease at L3-4 Reviewed, dictated and finalized at location B. IMPRESSION: Status post posterior and interbody spinal fusion at L4-5, lumbar l aminectomy Osteopenia Chronic severe degenerative disc disease at L1 to Minimal retrolisthesis at L2-3 Moderate degenerative disc disease at L3-4
== END 2021-02-15 13:41 | disposition home or self-care (01) ==
LOC: CHSIMG 13:43
PROVIDERS: PCP Family Medicine; Visit Provider Nurse Practitioner Family
DX: M54.50 Low back pain, unspecified (principal); G89.29 Other chronic pain
CPT/HCPCS: 72100

== ENCOUNTER 2021-04-14 06:20 | Outpatient (CLI) | payer MEDICARE, OTHER, SELFPAY ==
--- NOTE | ~2021-04-14 | MR_ITS ---
EXAMINATION: MR lumbar spine wo [facility] EXAM DATE: 04/14/2021 07:28 INDICATION: Lumbar radiculopathy, low back pain into both legs. TECHNIQUE: Multi-sequential, multiplanar MR images of the lumbar spine were obtained without contrast . Sagittal T1, T2, T2 fat saturation images. Axial T2 weighted images. Comparison is made to prior examination from 02/20/2019. FINDINGS: Posterior fusion hardware, interbody device and laminectomies at L4-5. L2-L4 laminectomies. Moderate to severe loss of the L1-S2 disc height. Otherwise mild to moderate disc disease. Mild diff use loss of vertebral body heights. Mild lumbar levoscoliosis. There is 2-3 mm retrolisthesis L4 on L 5. Paraspinal soft tissue is unremarkable. Level by level evaluation: T12-L1: Disc does not extend beyond the endplate margin. Facet arthropathy: Mild. Neural foraminal stenosis: No stenosis. Central canal stenosis: No stenosis. L1-L2: There is a moderate diffuse disc bulge. Facet arthropathy: Mild to moderate. Neural foraminal stenosis: Moderate to severe left, mild right. Central canal stenosis: Mild. Posterior decompression. L2-L3: There is a moderate diffuse disc bulge. Facet arthropathy: Moderate. Neural foraminal stenosis: Moderate to severe left, mild to moderate right. Central canal stenosis: Mild, posterior decompression. L3-L4: There is a mild diffuse disc bulge. Facet arthropathy: Moderate. Neural foraminal stenosis: Moderate left, mild right. Central canal stenosis: No stenosis. L4-L5: This level is fused. Facet arthropathy: Poorly visualized but probably moderate. Neural foraminal stenosis: Mild to moderate left, mild right. Central canal stenosis: No stenosis. L5-S1: There is a mild diffuse disc bulge. Facet arthropathy: Mild. Neural foraminal stenosis: Mild left. Central canal stenosis: No stenosis. Surgical changes are new compared to 2019. IMPRESSION: 1. Left neural foraminal stenosis most severe at L2-3 followed by L1-2 and L3-4. 2. Surgical changes. Reviewed, dictated and finalized at location A. ICE DESK SPECIALIST IMPRESSION: 1. Left neural foraminal stenosis most severe at L2-3 followed by L1-2 and L3- 4. 2. Surgical changes.
== END 2021-04-14 06:21 | disposition home or self-care (01) ==
PROVIDERS: PCP Family Medicine; Visit Provider Anesthesiology Pain Medicine
DX: Z79.891 Long term (current) use of opiate analgesic (principal); M54.16 Radiculopathy, lumbar region
CPT/HCPCS: 36415; 72148; 80307

== ENCOUNTER 2021-05-25 14:22 | Outpatient (CLI) | payer MEDICARE, SELFPAY ==
[2021-05-25 15:06] LABS: Hemoglobin A1C 6.4 % (<5.7)
== END 2021-05-25 14:23 | disposition home or self-care (01) ==
LOC: CHSLAB 14:24
PROVIDERS: PCP Family Medicine; Visit Provider Nurse Practitioner Family
DX: E11.9 Type 2 diabetes mellitus without complications (principal)
CPT/HCPCS: 36415; 83036

== ENCOUNTER 2021-06-27 14:48 | Outpatient (NON) | payer MEDICARE, SELFPAY | END 2021-06-27 14:49 | disposition home or self-care (01) | LOC: CHSLAB 14:49 | PROVIDERS: Visit Provider Family Medicine | DX: L57.0 Actinic keratosis (principal) | CPT/HCPCS: 88305 ==

== ENCOUNTER 2021-07-20 08:56 | Outpatient (CLI) | payer MEDICARE, OTHER, SELFPAY ==
--- NOTE | ~2021-07-20 | XR_ITS ---
XR cervical spine min 6V 07/20/2021 09:20 Indication: Cervicalgia. Generalized neck pain. Procedure: 7 views of the cervical spine including flexion/extension views Comparison: Swimmer's view of the cervical spine dated 10/27/2018 Findings: There is advanced degenerative disc disease and endplate degenerative change at C3-4 throug h C6-7. There is degenerative anterolisthesis at C2-3 and retrolisthesis at C3-4. No acute fracture o r traumatic malalignment. No significant alteration of alignment with flexion/extension views. Odonto id process within normal limits. Impression: 1: Severe cervical spondylosis. Reviewed, dictated and finalized at location B. Impression: 1: Severe cervical spondylosis.
== END 2021-07-20 08:57 | disposition home or self-care (01) ==
LOC: CHSIMG 08:59
PROVIDERS: PCP Family Medicine; Visit Provider Anesthesiology Pain Medicine
DX: M54.2 Cervicalgia (principal)
CPT/HCPCS: 72052

== ENCOUNTER 2021-10-10 09:24 | Outpatient (CLI) | payer MEDICARE, SELFPAY ==
[2021-10-10 09:51] LABS: Hemoglobin A1C 6.5 % (<5.7)
== END 2021-10-10 09:25 | disposition home or self-care (01) ==
LOC: CHSLAB 09:25
PROVIDERS: PCP Family Medicine; Visit Provider Family Medicine
DX: E11.9 Type 2 diabetes mellitus without complications (principal)
CPT/HCPCS: 36415; 83036

== ENCOUNTER 2022-02-13 13:46 | Emergency (ER) | payer MEDICARE, OTHER, SELFPAY ==
[2022-02-13] VITALS (31 sets, daily range): BP systolic 125–144; BP diastolic 53–84; PULSE 72–81; RESP 11–25; TEMP 36.7–37.2; O2SAT 91–100
--- NOTE | ~2022-02-13 | XR_ITS ---
EXAM: XR shoulder RT min 2V DATE: 02/13/2022 15:10 HISTORY: fall,ABN XR,?DISLOCATION . COMPARISON: X-ray right humerus, same date. FINDINGS: Normal mineralization. Comminuted right humeral head fracture, involving the greater tuber osity. The glenohumeral joint is normally aligned. No lytic or blastic lesion. Joint spaces are maint ained. No erosion or periosteal change. Soft tissues within normal limits. IMPRESSION: No evidence of right shoulder dislocation. Reviewed, dictated and finalized at location K.
--- NOTE | ~2022-02-13 | CT_ITS ---
EXAMINATION: CT brain wo con DATE: 02/13/2022 14:39 INDICATION: Fall. TECHNIQUE: Computed tomography (CT) of the head was performed without intravenous contrast. The mA wa s adjusted according to patient size. Iterative reconstruction technique was employed. The dose-lengt h product was 605.33 mGy-cm. COMPARISON: Head CT 12/14/2010 FINDINGS: There is no intracranial hemorrhage, acute infarction, or abnormal intracranial mass lesion . There are scattered areas of low attenuation in the cerebral white matter, which is within normal l imits for the patient's age. The ventricles are normal in size. There are likely changes of ocular le ns replacement surgeries. There is mucosal thickening in the paranasal sinuses. The mastoid air cells are normal. IMPRESSION: 1. Normal aging brain. Reviewed, dictated and finalized at location A. IMPRESSION: 1. Normal aging brain.
--- NOTE | ~2022-02-13 | XR_ITS ---
EXAM: XR humerus RT DATE: 02/13/2022 14:30 HISTORY: FALL X2DAYS AGO,FALL INTO WALL . COMPARISON: None available. FINDINGS: Decreased mineralization. Comminuted fracture of the right humeral head, with fracture alex es extending to involve the greater tuberosity. Increased subacromial space, inferior displacement of the humeral head. No lytic or blastic lesion. Joint spaces are maintained. No erosion or periosteal change. Soft tissues within normal limits. IMPRESSION: Comminuted fracture of the right humeral head, with subluxation versus dislocation. Consi benjie right shoulder radiographs for further evaluation. Reviewed, dictated and finalized at location K. IMPRESSION: Comminuted fracture of the right humeral head, with subluxation steven jerry dislocation. Consider right shoulder radiographs for further evaluation.
--- NOTE | 2022-02-13 13:56 | ED.FALL ---
HPI - Fall General Chief Complaint: Fall Stated Complaint: fell hurt r arm Time Seen by Provider: 02/13/22 13:56 Source: patient Mode of arrival: wheelchair History of Present Illness HPI Narrative: 81-year-old male with a history of hypertension, diabetes mellitus, dyslipidemia, CKD, GERD, arthritis, anemia with chronic low back pain status post nerve stimulator implanted 2 weeks ago had a fall 2 days ago when he ran into a wall. He presents to the ER with -- right arm pain with extensive bruising of the right arm. Decreased range of motion of the right arm -- no head injury or loss of consciousness -- chronic low back status post nerve stimulator 2 weeks ago. -- Generalized weakness -- prior to the fall patient became lightheaded after he climbed a flight of stairs. MD complaint: fall Onset (ago): day(s) ( 2 days ago) Fall from: standing Fall witnessed: no Place fall occurred: home Loss of consciousness: none Prolonged down time: no Symptoms prior to fall: lightheadedness Context: other ( after he climbed a flight of stairs he became weak and ran into a wall.) Location of injury: other ( Right arm) Location of injury - extremities: Right: arm Severity: moderate Quality: aching Related Data Home Medications Medication Instructions Recorded Confirmed cholecalciferol (vitamin D3) 25 1,000 unit PO DAILY 05/27/19 02/13/22 mcg (1,000 unit) capsule (Vitamin D3) latanoprost 0.005 % eye drops 1 drp EACH EYE DAILY 06/29/20 02/13/22 chlorthalidone 25 mg tablet 25 mg PO EVERY OTHER DAY 02/13/22 02/13/22 Allergies Allergy/AdvReac Type Severity Reaction Status Date / Time No Known Allergies Allergy Verified 02/13/22 13:58 Review of Systems Review of Systems: All systems reviewed & are unremarkable except as noted in HPI and below Constitutional: Constitutional: Reports as per HPI and Reports no additional constitutional complaints Eyes: Eyes: Reports as per HPI and Reports no additional eye complaints ENT: Reports system reviewed and no additional complaints, except as documented and Reports as per HPI Cardiovascular: Cardiovascular: Reports as per HPI and Reports no additional cardiovascular complaints Comments: the patient became lightheaded after he climbed a flight of stairs Respiratory: Respiratory: Reports as per HPI and Reports no additional respiratory complaints Gastrointestinal: Gastrointestinal: Reports as per HPI and Reports no additional gastrointestinal complaints Genitourinary: Genitourinary: Reports no additional male genitourinary complaints and Reports as per HPI Comments: symptoms of prostatism Musculoskeletal: Musculoskeletal: Reports no additional musculoskeletal complaints and Reports as per HPI Integumentary/Breasts: Skin/Breast: Reports system reviewed and no additional complaints, except as docu and Reports as per HPI Comments: extensive bruising of the right arm Neurologic: Reports system reviewed and no additional complaints, except as documented and Reports as per HPI Psychiatric: Psychiatric: Reports no additional psychiatric complaints and Reports as per HPI Endocrine: Endocrine: Reports no additional endocrine complaints and Reports as per HPI Hematologic/Lymphatic: Hematologic/Lymphatic: Reports no additional hematologic/lymphatic complaints and Reports as per HPI Allergic/Immunologic: Allergic/Immunologic: Reports no additional allergic/immunologic complaints and Reports as per HPI [facility] Past Medical History Medical History CKD (chronic kidney disease) stage 3, GFR 30-59 ml/min DM2 (diabetes mellitus, type 2) GERD (gastroesophageal reflux disease) Hyperlipidemia Hypertension Osteoarthritis Surgical History Surgical History No history of previous surgery Social History Social History Addition
--- NOTE | 2022-02-13 14:18 | ECG_ITS ---
Measurements Intervals [place] Rate: 77 P: 71 MI: 221 QRS: 64 QRSD: 98 T: -30 QT: 353 QTc: 400 Interpretive Statements SINUS RHYTHM WITH SINUS ARRHYTHMIA WITH FIRST DEGREE AV BLOCK NONSPECIFIC ST & T-WAVE ABNORMALITY COMPARED TO ECG 10/02/2019 07:35:18 SINUS ARRHYTHMIA NOW PRESENT T-WAVE ABNORMALITY NOW PRESENT Electronically Signed On 02-13-2022 19:40:59 CDT by Zandra Reynolds M.D.
--- NOTE | 2022-02-13 14:30 | PC.NURSE ---
Pt off floor to CT scan
[2022-02-13] MEDS: MORPHINE SULFATE (*CRX) 4 MG/ML INJ IM (14:52)
[2022-02-13] MEDS: ONDANSETRON HCL ODT 4 MG TABLET PO (14:52)
[2022-02-13 15:00] LABS: Basophils Absolute Auto 0.02 K/mm3 (0.00-0.10); Basophils Percent Auto 0.2 % (0.0-1.0); Eosinophils Absolute Auto 0.07 K/mm3 (0.02-0.50); Eosinophils Percent Auto 0.7 % (1.0-6.0); Hematocrit 28.9 % (37.0-46.0); Hemoglobin 9.4 g/dL (12.4-15.3); Immature Granulocyte Absolute 0.06 K/mm3 (0.00-0.00); Immature Granulocyte Percent A 0.6 % (0.0-0.0); Lymphocytes Absolute Auto 1.13 K/mm3 (1.10-4.50); Lymphocytes Percent Auto 11.6 % (18.0-42.0); Mean Corpuscular HGB Conc 32.5 g/dL (32.0-36.0); Mean Corpuscular Hemoglobin 32.5 pg (27.0-31.0); Mean Platelet Volume 10.2 fl (8.7-11.0); Monocytes Percent Auto 10.2 % (2.0-11.0); Neutrophils Absolute Auto 7.5 K/mm3 (1.7-7.2); Neutrophils Percent Auto 76.7 % (50.0-70.0); Platelet Count Result 209 K/mm3 (150-420); Red Blood Count 2.89 M/mm3 (4.70-6.10); Red Cell Distribution Width 12.4 % (11.6-14.4); White Blood Count 9.8 K/mm3 (4.8-10.8)
[2022-02-13 15:16] LABS: Partial Thromboplastin Time 28.9 SEC (23.90-30.70); Prothrombin Time 11.1 Seconds (9.50-12.10)
[2022-02-13 15:18] LABS: Alanine Aminotransferase 18 U/L (16-63); Albumin Level 3.2 g/dL (3.4-5.0); Alkaline Phosphatase 72 U/L (46-116); Anion Gap 7 mmol/L (8-16); Aspartate Amino Transferase 19 U/L (15-37); Bilirubin,Total 0.5 mg/dL (0.00-1.00); Blood Urea Nitrogen 37 mg/dL (7-18); Calcium 8.7 mg/dL (8.5-10.1); Carbon Dioxide 32 mmol/L (21-32); Chloride 101 mmol/L (98-108); Estimated Glomerular Filt Rate 30; Glucose 132 mg/dL (70-99); Osmolality Calculated 300 mOsm/kg (285-295); Potassium 3.9 mmol/L (3.5-5.1); Sodium 140 mmol/L (136-145); Total Protein 7.3 g/dL (6.4-8.2)
[2022-02-13 15:21] LABS: Lactic Acid Reflex 1.1 mmol/L (0.4-2.0); Troponin I 66.3 ng/L (0.00-60.4)
--- NOTE | 2022-02-13 16:11 | PC.NURSE ---
Spoke with mailhouse operator at [place] requesting IMU bed. States she will contact hospitalist who will call back.
[2022-02-13] MEDS: LACTATED RINGERS 1,000 ML 150 ML IV CONT (16:17)
[2022-02-13] MEDS: ASPIRIN 81 MG CHEWABLE TABLET 324 MG PO (16:17)
--- NOTE | 2022-02-13 17:51 | PC.NURSE ---
supervisor drawing from [facility] requesting COVID swab prior to admission. Swabbing at this time
[2022-02-13 18:31] LABS: SARS-CoV-2 RNA PCR Negative (Negative)
--- NOTE | 2022-02-13 18:38 | PC.NURSE ---
Called warehouser at [place], COVID testing is negative.
--- NOTE | 2022-02-13 19:30 | PC.NURSE ---
Called report to [facility], Pt to be admitted to room 206-1
--- NOTE | 2022-02-13 19:34 | PC.NURSE ---
Called patient's , OK to leave message on her machine as discussed earlier in the day. Informed her of bed number at [place] [facility] and number to call if she had questions.
--- NOTE | 2022-02-13 20:26 | PC.NURSE ---
EMS arrived to pick pt up for transfer. Pt states he has pain when moving. EMS and pt decide it would be best for pain meds before the drive. RN reports to ERP. ERP orders 0.5mg of IV Hydromorphone. RN confirmed order.
[2022-02-13] MEDS: HYDROmorphone HCL INJ (*CRX) 2 MG/ML VIAL 0.5 MG IV PUSH (20:29)
== END 2022-02-13 20:30 | disposition short-term general hospital (02) ==
PROVIDERS: Emergency Provider Internal Medicine Critical Care Medicine; PCP Family Medicine
DX: S42.211A Unspecified displaced fracture of surgical neck of right humerus, initial encounter for closed fracture (principal); R79.9 Abnormal finding of blood chemistry, unspecified; N17.9 Acute kidney failure, unspecified; N18.30 Chronic kidney disease, stage 3 unspecified; D64.9 Anemia, unspecified; W19.XXXA Unspecified fall, initial encounter; Z20.822 Contact with and (suspected) exposure to COVID-19; E11.9 Type 2 diabetes mellitus without complications; K21.9 Gastro-esophageal reflux disease without esophagitis; E78.5 Hyperlipidemia, unspecified; I12.9 Hypertensive chronic kidney disease with stage 1 through stage 4 chronic kidney disease, or unspecified chronic kidney disease
CPT/HCPCS: 36415; 70450; 73030; 73060; 80053; 83605; 84484; 85025; 85610; 85730; 93005; 96361; 96372; 96374; 99285; A4565; A9270; C9803; J1170; J2270; J7120; U0003; U0005

== ENCOUNTER 2022-02-13 22:28 | Inpatient (IN) | payer MEDICARE, OTHER, SELFPAY ==
--- NOTE | ~2022-02-13 | XR_ITS ---
EXAMINATION: XR chest 1V portable DATE: 02/15/2022 16:15 INDICATION: Shortness of breath. TECHNIQUE: A single frontal view of the chest was obtained. COMPARISON: Chest one view 02/14/2022 FINDINGS: There is a diffuse interstitial pattern, consistent with mild pulmonary edema. No pleural e ffusion or pneumothorax. The heart size is normal. Electrodes overlie the spine. IMPRESSION: 1. Mild pulmonary edema. Reviewed, dictated and finalized at location A. IMPRESSION: 1. Mild pulmonary edema.
--- NOTE | ~2022-02-13 | NM_ITS ---
EXAMINATION: NM taryn stress w perfusion DATE: 02/14/2022 14:17 INDICATION: Chest pain. TECHNIQUE: Rest images were obtained following intravenous administration of 9.3 mCi Tc99m tetrofosmi n (Myoview). The patient was infused intravenously with Lexiscan (regadenoson). Then, 29.7 mCi Tc99m tetrofosmin (Myoview) was administered intravenously, and stress images were obtained. Data was recon structed into short axis and horizontal and vertical long axis SPECT images. Gated SPECT images were also obtained. COMPARISON: None. FINDINGS: There is a moderate-sized, mild, fixed perfusion defect involving left ventricular apex, ap ical inferior segment, and apical septal segment, consistent with infarct. No reversible component to suggest ischemia.. There is apical inferoseptal hypokinesis. Left ventricular ejection fraction me asures 40%. IMPRESSION: 1. 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 2. Apical inferoseptal hypokinesis with left ventricular ejection fraction measuring 40%. Reviewed, dictated and finalized at location A. IMPRESSION: 1. 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 2. Apical inferoseptal hypokinesis with left ventricular ejection fraction benito uring 40%.
--- NOTE | ~2022-02-13 | XR_ITS ---
EXAMINATION: XR barium swallow modified DATE: 02/16/2022 13:23 INDICATION: Dysphagia. TECHNIQUE: The patient was given barium-containing material of multiple consistencies to swallow by t christine speech pathologist while I performed fluoroscopy. Fluoroscopy exposure time was 2.1 minutes. The n umber of fluoroscopy images saved to the PACS was 1. Dose-area product was 1.439 Gy-cm^2. FINDINGS: There was lingual pumping. There is reduced laryngeal elevation, reduced laryngeal adduction, and red uced tongue base retraction. There is vallecular residue. There is laryngeal penetration and aspirati on. IMPRESSION: 1. Laryngeal penetration and aspiration. 2. Please refer to the speech therapy report for recommendations. Reviewed, dictated and finalized at location A.
--- NOTE | ~2022-02-13 | XR_ITS ---
EXAMINATION: XR chest 1V portable DATE: 02/14/2022 06:07 INDICATION: Hypoxia. TECHNIQUE: A single frontal view of the chest was obtained. COMPARISON: Chest 2 views 10/02/2019 FINDINGS: There is a diffuse interstitial pattern, consistent with mild pulmonary edema. No pleural e ffusion or pneumothorax. The heart size is normal. Electrodes overlie the spine. There is a comminute d fracture of proximal right humerus. IMPRESSION: 1. Mild pulmonary edema. 2. Comminuted fracture of proximal right humerus. Reviewed, dictated and finalized at location A.
--- NOTE | ~2022-02-13 | US_ITS ---
EXAMINATION: US venous doppler [facility] DATE: 02/15/2022 18:01 INDICATION: Shortness of breath TECHNIQUE: Arora scale images without and with compression and Doppler images of the bilateral lower e xtremity veins were obtained. COMPARISON: 09/28/2019 FINDINGS: The right common femoral vein, profunda femoral vein, femoral vein, popliteal vein, peroneal trunk, p osterior tibial veins, and greater saphenous vein are patent. The left common femoral vein, profunda femoral vein, femoral vein, popliteal vein, peroneal trunk, po sterior tibial veins, and greater saphenous vein are patent. IMPRESSION: 1. Patent bilateral lower extremity veins. No evidence of deep venous thrombosis. Reviewed, dictated and finalized at location F. IMPRESSION: 1. Patent bilateral lower extremity veins. No evidence of deep venous thrombosi s.
[2022-02-13 21:17] VITALS: BP 124/81; PULSE 81; RESP 16; TEMP 37.2; O2SAT 91
[2022-02-13 21:18] VITALS: BMI 25.2
--- NOTE | 2022-02-13 21:18 | ADMGEN ---
This patient, Villa Rush, was admitted to IMU Room 206-01. Patient/family oriented to hospital policies and general routines including ID bracelet, bed and alarms, visiting hours, pain management, procedures, bathroom and other care routines, personal items, smoking policy, room service/diet, and visiting hours. Information on how to activate the Rapid Response Team has been discussed. Patient/Family are encouraged to report perceived risks to care and to ask questions if they do not understand what they are told or what they should do.
[2022-02-13 21:21] VITALS: BMI 25.2
[2022-02-13 22:00] VITALS: PULSE 80; O2SAT 91
--- NOTE | 2022-02-13 22:22 | PC.NURSE ---
Additional contact for patient is famliy friend, Rodríguez Mckeon. Can be contacted at [phone]
--- NOTE | 2022-02-13 22:37 | PM.IMHP ---
H&P: HPI History of Present Illness Date/Time: 02/13/22 22:37 Chief Complaint: Right arm pain after fall Narrative: This is a 81-year-old male patient with a history of hypertension, diabetes, chronic kidney disease and hyperlipidemia. The patient stated that he was coming up basement steps and he got to the very top 14. When he felt dizzy and felt like he was going to pass out the patient stated he had a choice of falling backwards her leading for it and falling into the wall. Patient stated that he fell into the wall and bruise of his right arm. He had significant amount of bruising and pain to the right arm. The patient had no head injury and did not lose consciousness. The patient stated it has been harder and harder for him to get up the steps and then when he came up the steps he becomes very short of breath and feels like he is going to pass out. The patient stated he did not hit his head or lose consciousness. He denied any chest pain. The patient's H&H is 9.4 and 28.9. His creatinine was found to be 2.12. His baseline is anywhere from 1.62-1.84. He does have chronic renal failure stage 3. His troponin at [facility] was 66.3 on a scale from 0-60.4 is normal. Patient is not having any chest pain at this time. Oxygen was applied at 2 L per nasal cannula. Shoulder x-ray shows no evidence of right shoulder dislocation at [facility]. Head CT shows normal aging brain. Right humerus was read as comminuted fracture of the right humeral head, with subluxation versus dislocation. Consider right shoulder radiographs for further evaluation. His EKG was read as the following SINUS RHYTHM WITH SINUS ARRHYTHMIA WITH FIRST DEGREE AV BLOCK NONSPECIFIC ST & T-WAVE ABNORMALITY COMPARED TO ECG 10/02/2019 07:35:18 SINUS ARRHYTHMIA NOW PRESENT T-WAVE ABNORMALITY NOW PRESENT Electronically Signed On 02-13-2022 19:40:59 CDT by Zandra Reynolds M.D. The patient is being admitted to observation status on the date of service of 02/13/2022. The patient is a direct admit from [facility]. Review of Systems Review of Systems: See HPI All systems reviewed & are unremarkable except as noted in HPI and below Constitutional: Constitutional: Reports as per HPI and Reports no additional constitutional complaints Eyes: Eyes: Reports as per HPI and Reports no additional eye complaints ENT: Reports system reviewed and no additional complaints, except as documented and Reports Normal hearing present Cardiovascular: Cardiovascular: Reports no additional cardiovascular complaints Respiratory: Respiratory: Reports no additional respiratory complaints and Reports no additional respiratory complaints Gastrointestinal: Gastrointestinal: Reports as per HPI and Reports no additional gastrointestinal complaints Musculoskeletal: Musculoskeletal: Reports no additional musculoskeletal complaints Integumentary/Breasts: Skin/Breast: Reports system reviewed and no additional complaints, except as docu and Reports as per HPI Neurologic: Reports system reviewed and no additional complaints, except as documented, Reports as per HPI and Reports Normal hearing present Psychiatric: Psychiatric: Reports no additional psychiatric complaints and Reports as per HPI Endocrine: Endocrine: Reports no additional endocrine complaints Hematologic/Lymphatic: Hematologic/Lymphatic: Reports no additional hematologic/lymphatic complaints Allergic/Immunologic: Allergic/Immunologic: Reports no additional allergic/immunologic complaints [facility] Past Medical History Medical History (Updated 02/13/22 @ 23:04 by Monet Walton NP) Anemia CKD (chronic kidney disease) stage 3, GFR 30-59 ml/min DM2 (diabetes mellitus, type 2) GERD (gastroesophageal reflux disease) Glaucoma Humerus fracture Hyperlipidemia Hypertension Osteoarthritis Surgical History Surgical History (Updated 02/13/22 @ 22:45 by Monet Walton NP) History of back surgery History of cataract
[2022-02-13 23:03] LABS: Creatine Kinase 80 U/L (55-170)
[2022-02-13 23:25] LABS: Troponin I 0.071 ng/mL (0.000-0.034)
[2022-02-13 23:42] VITALS: PULSE 77
[2022-02-13] MEDS: carvediloL 3.125 MG TABLET PO (23:42)
[2022-02-13] MEDS: GABAPENTIN 100 MG CAPSULE PO (23:42)
[2022-02-13] MEDS: GABAPENTIN 300 MG CAPSULE PO (23:43)
[2022-02-13 23:59] VITALS: BP 146/52; PULSE 83; RESP 16; TEMP 37.1; O2SAT 97
[2022-02-14] VITALS (22 sets, daily range): BP systolic 92–123; BP diastolic 51–56; PULSE 76–124; RESP 16–30; TEMP 36.4–37.3; O2SAT 61–100
--- NOTE | 2022-02-14 | ECHO_ITS ---
Patient Info Name: Villa Rush Age: 81 years : 1940 Gender: Male Ht: 69 in Wt: 171 lbs BSA: 1.95 m2 HR: 102 bpm BP: 123 / 53 mmHg Heart Rhythm: Sinus Rhythm Technical Quality: Fair Exam Date: 02/14/2022 10:41 AM Exam Location: [facility] Pulmonary Exam Room: [facility] Patient Status: Inpatient Admit Date: 02/14/2022 Staff Ordering Physician: Monet Walton NP Director Of Architecture: Leatha Galindo RDCS Attending Provider: Yannick Forbes MD Referring Physician: Isabelle WILLIAMSON; Exam Type: CA echo dop color flow w con Study Info Indications - murmur hx/o Complete two-dimensional, color flow and Doppler transthoracic echocardiogram is performed with contrast to opacify the left ventricle and to improve the deliniation of the left ventricle endocardial borders. Contrast/Agitated Saline Contrast/Ag. Saline: Definity Amount: 2.00 ml Administered By: Leatha Galindo [facility] Existing IV Access: Yes IV Access Condition: patent with no signs of infiltration History/Risk Factors Hypertension: Yes Dyslipidemia: No Congenital Heart Disease (CHD): No Diabetic Therapy: Oral Peripheral Arterial Disease (PAD): No Myocardial Infarction ([place]): No Chronic Lung Disease: No Obesity: No Renal Disease: Yes Coronary Artery Disease (CAD) No Congestive Heart Failure (CHF): No Cardiomyopathy/LV Systolic Dysfunction: No Diabetes Mellitus: Type II COPD: No Tobacco Use: Former Cerebrovascular Disease: No Family History: Diabetes Mellitus Deep Vein Thrombosis (DVT): None Dialysis: None Frailty Scale (CSHA): 4: Vulnerable Cardiac Arrest: No Summary 1. Left ventricular chamber dimension is normal. 2. Left ventricular systolic function is mildly reduced, estimated at 40-45%. 3. There is mildly increased left ventricular wall thickness. 4. Right ventricular systolic function is normal. 5. Left atrial chamber dimension is mildly enlarged. 6. There is moderate to severe aortic valve stenosis with a peak velocity of 347.50 cm/s, mean gradient of 30 mmHg, and aortic valve area of 0.97 cm2. Left Ventricle Left ventricular chamber dimension is normal. Left ventricular systolic function is mildly reduced, estimated at 40-45%. There is mildly increased left ventricular wall thickness. Right Ventricle Right ventricular chamber dimension is normal. Right ventricular systolic function is normal. Left Atria Left atrial chamber dimension is mildly enlarged. Right Atria Right atrial chamber dimension is normal. Atrial Septum Intact interatrial septum visualized by color flow imaging. Aortic Valve The aortic valve is not well visualized. There is moderate to severe aortic valve stenosis with a peak velocity of 347.50 cm/s, mean gradient of 30 mmHg, and aortic valve area of 0.97 cm2. There is no aortic valve regurgitation. There is moderate aortic valve calcification. Pulmonic Valve The pulmonic valve is not well visualized. Mitral Valve There is no mitral valve stenosis. There is no mitral valve regurgitation. There is mild mitral valve calcification. Tricuspid Valve The tricuspid valve leaflets are normal. There is trace tricuspid valve regurgitation. Pericardium/Pleural There is no pericardial effusion. Inferior Vena Cava Dilated inferior vena cava with >50% collapse upon inspiration consistent with leydi
--- NOTE | 2022-02-14 04:44 | ECG_ITS ---
Measurements Intervals [place] Rate: 113 P: 89 DE: 224 QRS: 69 QRSD: 98 T: -88 QT: 296 QTc: 407 Interpretive Statements SINUS TACHYCARDIA WITH FIRST DEGREE AV BLOCK MARKED ST DEPRESSION, CONSIDER SUBENDOCARDIAL INJURY [0.2+ mV ST DEPRESSION] COMPARED TO ECG 02/13/2022 15:09:33 [address]IA NOW PRESENT ST DEPRESSIONS NOW PRESENT Electronically Signed On 02-14-2022 14:43:11 CDT by Sofi Elliott M.D.
[2022-02-14 04:52] LABS: Basophils Percent Auto 0.2 % (0.2-1.2); Eosinophils Absolute Auto 0.2 K/mm3 (0-0.3); Eosinophils Percent Auto 1.8 % (0-4.4); Hematocrit 26.8 % (42.0-52.0); Hemoglobin 8.4 g/dL (14.0-18.0); Immature Granulocyte Absolute 0.05 K/mm3 (0.00-0.031); Immature Granulocyte Percent A 0.5 % (0-0.5); Lymphocytes Absolute Auto 1.19 K/mm3 (0.9-3.2); Lymphocytes Percent Auto 12.5 % (18.3-44.2); Mean Corpuscular HGB Conc 31.3 g/dl (32-36); Mean Corpuscular Hemoglobin 31.6 pg (26-34); Mean Corpuscular Volume 100.8 fl (80-100); Mean Platelet Volume 10.4 fl (7.4-10.4); Monocytes Absolute Auto 0.7 K/mm3 (0.1-0.6); Monocytes Percent Auto 7.1 % (2.6-8.5); Neutrophils Absolute Auto 7.4 K/mm3 (1.3-6.7); Neutrophils Percent Auto 77.9 % (45.5-73.1); Platelet Count Result 203 k/mm3 (150-375); Red Blood Count 2.66 M/mm3 (4.6-6.20); Red Cell Distribution Width 12.5 % (11.5-14.5); White Blood Count 9.6 K/mm3 (4.5-10.0)
--- NOTE | 2022-02-14 05:10 | PC.NURSE ---
Contacted Dr. Brady about change in patient EKG after noticing a change on the property assessment monitor. Was instructed to contact Dr Reynolds.
[2022-02-14 05:12] LABS: Lactic Acid Reflex 1.7 mmol/L (0.7-2.0)
--- NOTE | 2022-02-14 05:20 | PC.NURSE ---
Called the exchange and got a call back from Dr Reynolds. Explained about the recent EKG changes. instructed to give a one time dose of aspirin.
[2022-02-14 05:25] LABS: Troponin I 0.157 ng/mL (0.000-0.034)
[2022-02-14] MEDS: ASPIRIN 325 MG TABLET PO (05:37)
[2022-02-14 05:50] LABS: Hemoglobin A1C 6.1 % (<5.7)
--- NOTE | 2022-02-14 06:04 | ECG_ITS ---
Measurements Intervals [place] Rate: 108 P: 87 CO: 232 QRS: 71 QRSD: 96 T: 64 QT: 316 QTc: 424 Interpretive Statements SINUS TACHYCARDIA WITH FIRST DEGREE AV BLOCK MARKED ST DEPRESSION, CONSIDER SUBENDOCARDIAL INJURY [0.2+ mV ST DEPRESSION] INTERPRETATION BASED ON A DEFAULT AGE OF 40 YEARS COMPARED TO ECG 02/14/2022 04:51:17 NO SIGNIFICANT CHANGES Electronically Signed On 02-14-2022 14:43:31 CDT by Sofi Elliott M.D.
[2022-02-14 06:16] LABS: Alveolar/Arterial O2 Gradient 408.3 mmHg; Base Excess ABG -0.9 mEq/l (+/-2.0); Carboxyhemoglobin 0.3 % THb (0-2.0); Fractional Inspired Oxygen 100 %; HCO3 ABG 26.4 mEq/l (22.0-26.0); Methemoglobin ABG 0.4 %THb (0-1.5); Oxygen Content ABG 14.5 %vol (16.0-22.0); Oxygen Saturation ABG 99.5 % (95.0-100.0); Oxyhemoglobin 97.9 % THb (90.0-100.0); PCO2 ABG 57.3 mmHg (35.0-45.0); PO2 ABG 247.4 mmHg (80.0-100.0); PO2 FiO2 Ratio Arterial Blood 2.47 %; Reduced Hemoglobin 1.4 %THb (0-5.0); Total Hemoglobin 10.1 g/dL (12.0-18.0)
[2022-02-14 06:17] LABS: Device NON-INVASIVE VENT; Site Drawn LEFT BRACHIAL; pH ABG 7.281 (7.350-7.450)
[2022-02-14] MEDS: methylPREDNISolone SOD SUCC 125 MG VIAL 60 MG IV PUSH (06:17)
[2022-02-14] MEDS: FUROSEMIDE INJ 40 MG/4 ML VIAL IV PUSH (06:17)
[2022-02-14 06:18] LABS: Non-Invasive Expiratory Pressure 6 CMH2O; Non-Invasive Inspiratory Pressure 12 CMH2O; Non-Invasive Vent Rate 4 /MIN
--- NOTE | 2022-02-14 06:25 | PM.IMPN ---
Progress Note: A&P Assessment and Plan (1) Acute hypoxemic respiratory failure: Code(s): J96.01 - Acute respiratory failure with hypoxia Status: Acute Assessment and Plan: acute hypoxemic respiratory failure probably related to pulmonary edema multifactorial secondary to IV fluid and possible ACS cardiology was notified aspirin was given patient was started on BiPAP chest pain completely resolved now with pending final cardiology recommendation hypercapnic respiratory failure started on BiPAP repeat ABG in 1 hour consider pulmonology evaluation for BiPAP management Subjective Date/time seen: 02/14/22 06:25 Patient had episode of hypoxia associated with chest pain pressure VIII O2 sat was as low as 75 patient was complaining of severe shortness of breath and chest pain chest x-ray was done showed probable pulmonary edema EKG shows ST segment changes cardiology was notified aspirin was given 40 of IV Lasix was given patient was started on BiPAP ABG was reviewed showed respiratory acidosis repeat ABG after 1 hour Exam Narrative: acute distress resolved with BiPAP Chest bilateral crackles Abdomen nontender nondistended CVS S1 + S2 Lower extremity edema Objective Data Vital Signs Vital Signs: Vital Signs - 24 hr 02/13/22 21:17 02/13/22 22:00 02/13/22 22:00 Temperature 98.9 F Pulse Rate 81 80 Respiratory Rate 16 Blood Pressure 124/81 Pulse Oximetry 91 91 Oxygen Delivery Nasal Cannula Oxygen Flow Rate 2 02/13/22 23:42 02/13/22 23:59 02/14/22 00:00 Temperature 98.8 F Pulse Rate 77 83 80 Respiratory Rate 16 Blood Pressure 146/52 H Pulse Oximetry 97 Oxygen Delivery Oxygen Flow Rate 02/14/22 00:00 02/14/22 02:00 02/14/22 04:00 Temperature 98.5 F Pulse Rate 91 114 H Respiratory Rate 20 Blood Pressure 92/53 L Pulse Oximetry 97 91 Oxygen Delivery Nasal Cannula Oxygen Flow Rate 2 02/14/22 05:38 02/14/22 05:46 02/14/22 04:00 Temperature 98.3 F Pulse Rate 124 H 107 H 101 H Respiratory Rate 24 H 26 H Blood Pressure 93/51 L 123/53 L Pulse Oximetry 61 L 93 Oxygen Delivery Oxygen Flow Rate 02/14/22 04:00 02/14/22 06:00 02/14/22 06:00 Temperature Pulse Rate 105 H 110 H Respiratory Rate 22 H Blood Pressure Pulse Oximetry 93 100 Oxygen Delivery Nasal Cannula BiPAP Oxygen Flow Rate 2 Intake/Output Intake/Output: Intake & Output 02/11/22 02/12/22 02/13/22 02/14/22 23:59 23:59 23:59 23:59 Intake Total 350 Balance 350 Meds/Results Medications: Active Medications Generic Name Dose Route Start Last Admin Trade Name Freq PRN Reason Stop Dose Admin Hydrocodone Bitart/Acetaminophen 1 tab 02/13/22 22:28 Hydrocodone/Acetaminophen (*Crx) 5-325 Mg Tablet PO Q4H PRN Moderate Pain (4-6) Alendronate Sodium 70 mg 02/20/22 06:30 Alendronate Sodium 70 Mg Tablet PO We@0630 KERWIN Amlodipine Besylate 10 mg 02/14/22 09:00 Amlodipine Besylate 5 Mg Tablet PO DAILY KERWIN Atorvastatin Calcium 40 mg 02/14/22 09:00 Atorvastatin 40 Mg Tablet PO DAILY KERWIN Carvedilol 3.125 mg 02/13/22 22:40 02/13/22 23:42 Carvedilol 3.125 Mg Tablet PO 3.125 mg Q12HR KERWIN Administration Dextrose 12.5 gm 02/13/22 22:45 Dextrose 50% 25 Gm/50 Ml Syringe IV PUSH PRN PRN Hypoglycemia Protocol Gabapentin 100 mg 02/13/22 22:45 02/13/22 23:42 Gabapentin 100 Mg Capsule PO 100 mg HS KERWIN Administration Gabapentin 300 mg 02/13/22 22:45 02/13/22 23:43 Gabapentin 300 Mg Capsule PO 300 mg HS KERWIN Administration Glucagon 1 mg 02/13/22 22:45 Glucagon For Inj 1 Mg Vial IM PRN PRN Hypoglycemia Protocol Glucose 15 gm 02/13/22 22:45 Glucose Oral Gel 15 Gm Of Glucse In 37.5 Gm Tube PO PRN PRN Hypoglycemia Protocol Dextrose 1,000 mls @ 100 mls/hr 02/13/22 22:45 Dextrose 5% 1,000 Ml IVPB PRN PRN Hypoglyc
[2022-02-14] MEDS: IPRATROPIUM BR 0.02% INH SOLN 0.5 MG/2.5 ML VIAL INHALATION (06:34)
[2022-02-14 08:20] LABS: Glucose Point of Care 204 mg/dl (65-105)
[2022-02-14 08:21] LABS: Alveolar/Arterial O2 Gradient 145.9 mmHg; Base Excess ABG 2.1 mEq/l (+/-2.0); Carboxyhemoglobin 0.3 % THb (0-2.0); Fractional Inspired Oxygen 40 %; HCO3 ABG 28.2 mEq/l (22.0-26.0); Methemoglobin ABG 0.2 %THb (0-1.5); Oxygen Saturation ABG 95.2 % (95.0-100.0); Oxyhemoglobin 93.6 % THb (90.0-100.0); PCO2 ABG 51.5 mmHg (35.0-45.0); PO2 ABG 80.1 mmHg (80.0-100.0); Reduced Hemoglobin 5.9 %THb (0-5.0); Total Hemoglobin 9.8 g/dL (12.0-18.0); pH ABG 7.356 (7.350-7.450)
[2022-02-14 08:23] LABS: Device BIPAP; Expiratory Pressure 6 cmH2O; Inspiratory Pressure 12 cmH2O; Site Drawn LEFT BRACHIAL
--- NOTE | 2022-02-14 09:18 | EST_ITS ---
Patient Info Name: Villa Rush Age: 81 years : 1940 Gender: Male Ht: 69 in Wt: 171 lbs BSA: 1.95 m2 Exam Date: 02/14/2022 1:23 PM Exam Location: [facility] Stress Patient Status: Inpatient Admit Date: 02/14/2022 Staff Ordering Physician: Sofi Elliott MD Attending Provider: Yannick Forbes MD Exercise Technologist: Everton Gutierrez RDCS, RT Exercise Physician: Sofi Elliott MD Exam Type: CA stress taryn w NM Study Info A regadenoson stress test was performed. History/Risk Factors Hypertension: Yes Dyslipidemia: No Congenital Heart Disease (CHD): No Diabetic Therapy: Oral Peripheral Arterial Disease (PAD): No Myocardial Infarction ([place]): No Chronic Lung Disease: No Obesity: No Renal Disease: Yes Coronary Artery Disease (CAD) No Congestive Heart Failure (CHF): No Cardiomyopathy/LV Systolic Dysfunction: No Diabetes Mellitus: Type II COPD: No Tobacco Use: Former Cerebrovascular Disease: No Family History: Diabetes Mellitus Deep Vein Thrombosis (DVT): None Dialysis: None Frailty Scale (CSHA): 4: Vulnerable Cardiac Arrest: No Summary 1. Please correlate with nuclear medicine images, reported separately. 2. No ST-T wave changes indicative of ischemia. Protocol: Lexiscan Stress ECG Details Stage: REST Duration (min): 0 min : 58 sec HR (bpm): 85 SBP (mmHg): 114 DBP (mmHg): 56 Stage: REST Duration (min): 4 min : 25 sec HR (bpm): 89 SBP (mmHg): 114 DBP (mmHg): 56 Stage: STAGE 1 Duration (min): 1 min : 0 sec HR (bpm): 91 SBP (mmHg): 114 DBP (mmHg): 56 Stage: RECOVERY Duration (min): 1 min : 0 sec HR (bpm): 99 SBP (mmHg): 84 DBP (mmHg): 41 Stage: RECOVERY Duration (min): 2 min : 0 sec HR (bpm): 97 SBP (mmHg): 94 DBP (mmHg): 45 Stage: RECOVERY Duration (min): 3 min : 0 sec HR (bpm): 96 SBP (mmHg): 99 DBP (mmHg): 47 Stage: RECOVERY Duration (min): 3 min : 48 sec HR (bpm): 96 SBP (mmHg): 99 DBP (mmHg): 47 Rest HR: 89 bpm Peak HR: 105 bpm Rest Sys BP: 114 mmHg Peak Sys BP: 99 mmHg Max Pred HR: 139 bpm % Max Pred HR: 76 % Target HR: 118 bpm Max RPP: 10,395 bpm*mmHg Total Time: 1 min : 0 sec Rest Burton BP: 56 mmHg Peak Burton BP: 47 mmHg Total Dose: 0.4 mg Resting ECG Sinus rhythm. Aberrantly conducted premature atrial complex. Resting ST/T wave changes. Stress ECG Sinus rhythm / Sinus tachycardia. Aberrantly conducted premature atrial complexes. Premature ventricular contractions. No ST-T wave changes indicative of ischemia. Report Signatures
--- NOTE | 2022-02-14 09:26 | PM.CNCAR ---
Assessment and Plan Assessment and plan (1) Acute hypoxemic respiratory failure: Code(s): J96.01 - Acute respiratory failure with hypoxia Status: Acute (2) CKD (chronic kidney disease) stage 3, GFR 30-59 ml/min: Code(s): N18.3 - Chronic kidney disease, stage 3 (moderate) Status: Acute (3) DM2 (diabetes mellitus, type 2): Code(s): E11.9 - Type 2 diabetes mellitus without complications Status: Acute (4) GERD (gastroesophageal reflux disease): Code(s): K21.9 - Gastro-esophageal reflux disease without esophagitis Status: Acute (5) Hyperlipidemia: Code(s): E78.5 - Hyperlipidemia, unspecified Status: Acute (6) Hypertension: Code(s): I10 - Essential (primary) hypertension Status: Acute (7) NSTEMI (non-ST elevated myocardial infarction): Code(s): I21.4 - Non-ST elevation (NSTEMI) myocardial infarction Status: Acute Plan Given elevated troponins with ECG changes concerning for ischemia, I did offer cardiac cath to the patient. However, patient states he does not want to undergo any invasive cardiac procedures at this time. Will proceed with non-invasive approach. Will medically treat for NSTEMI. Already loaded with ASA, continue 81mg daily. Load with Plavix 300mg, and continue with 75mg daily. High-intensity statin. Already on beta-emmanuel. Will give therapeutic Lovenox for 48 hours. Echo already ordered - will follow up on results. Proceed with Lexiscan today. Patient to remain NPO for the MPI. History of Present Illness History of Present Illness Consult date/time: 02/14/22 09:26 Requesting physician: Wilfredo Brady M.A., MD Consult reason: chest pain and shortness of breath Reason For Visit: Elevated Troponin,A/C Renal Failure Narrative: Patient is an 81-year-old male with a history of hypertension, diabetes, chronic kidney disease and hyperlipidemia who presented with right humerus fracture. Patient was going up his basement steps when he got dizzy and fell into the wall. He hurt his right arm. Patient did not lose consciousness. Had no chest pain prior to his fall. Was seen at [facility] and found with a right humerus fracture. Found to have minimally elevated troponin upon initial presentation as well. Per ER notes, Orth had recommended medical management - no surgical intervention. Overnight, patient developed acute shortness of breath. CXR concerning for flash pulmonary edema. EKG showing ST depressions concerning for ischemia. Patient given IV Lasix and put on BIPAP. Patient had reported chest pain at the time of this event. Patient given ASA 325mg. This morning, patient reports feeling fine. Denies shortness of breath. No chest pain. No longer on BIPAP. On supplemental O2 at 2 liters via nasal cannula. Review of Systems Review of Systems: All systems reviewed & are unremarkable except as noted in HPI and below (subjective) [facility] Past Medical History Medical History Anemia CKD (chronic kidney disease) stage 3, GFR 30-59 ml/min DM2 (diabetes mellitus, type 2) GERD (gastroesophageal reflux disease) Glaucoma Humerus fracture Hyperlipidemia Hypertension Osteoarthritis Surgical History Surgical History History of back surgery History of cataract extraction He has had back surgeries plus the neurostimulator History of removal of pigmented skin lesion From his left forehead which was actinic keratosis Family History Family History Mother Tuberculosis Father Alcoholism Sibling Lung disease Social History Social History Social History: The patient is and lives with his . He has 2 children. He is retired from the [employer]. 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 His is the [employer]
[2022-02-14 09:27] LABS: Alanine Aminotransferase 15 U/L (6-50); Albumin Level 3.1 g/dL (3.5-5.1); Alkaline Phosphatase 65 U/L (38-126); Anion Gap 11 mmol/L (8-16); Aspartate Amino Transferase 19 U/L (17-59); Bilirubin,Total 0.4 mg/dL (0.2-1.3); Blood Urea Nitrogen 34 mg/dL (9-20); Calcium 8.6 mg/dL (8.4-10.2); Carbon Dioxide 29 mmol/L (22-30); Chloride 99 mmol/L (98-107); Estimated CRCL calculation 25 ml/min; Estimated Glomerular Filt Rate 30; Glucose 177 mg/dL (65-110); Magnesium 1.9 mg/dL (1.6-2.3); Potassium 3.9 mmol/L (3.4-5.0); Sodium 139 mmol/L (137-145)
[2022-02-14] MEDS: PERFLUTREN LIPID MICROSPHERES 1.5 ML VIAL DILUTED TO 10 ML TOTAL VOLUME IV PUSH (11:07)
--- NOTE | 2022-02-14 11:07 | IVDEFINITY ---
Prior to administration of IV Definity the patient was educated on the risks and benefits of the imaging enhancing agent including potential adverse side effects. The patient verbalized understanding. Allergies were verified. No exclusion criteria were identified and at least one of the following inclusion criteria were met: 1) physician request, 2) patient technically difficult to image (per the [place] [employer]ocardi[employer] guidelines of two or more segments not discernable within the apical view), or 3) questionable left ventricular function. ?
[2022-02-14] MEDS: ENOXAPARIN 80 MG/0.8 ML SYRINGE SUB-Q (11:35)
[2022-02-14] MEDS: carvediloL 3.125 MG TABLET PO (11:36)
[2022-02-14] MEDS: CLOPIDOGREL BISULFATE 300 MG TABLET PO (11:36)
[2022-02-14] MEDS: ASPIRIN 81 MG ENTERIC TABLET PO (11:36)
[2022-02-14] MEDS: TERAZOSIN HCL 5 MG CAPSULE PO (11:37)
[2022-02-14] MEDS: PANTOPRAZOLE 40 MG TABLET PO ×2 (11:37→17:12)
[2022-02-14] MEDS: ATORVASTATIN 40 MG TABLET PO (11:37)
[2022-02-14] MEDS: CHOLECALCIFEROL 1,000 UNITS TABLET 1000 UNITS PO (11:37)
[2022-02-14] MEDS: amLODIPine BESYLATE 5 MG TABLET 10 MG PO (11:37)
[2022-02-14] MEDS: LIDOCAINE 5% PATCH 1 PATCH TOPICAL (11:38)
[2022-02-14 12:06] LABS: Glucose Point of Care 183 mg/dl (65-105)
--- NOTE | 2022-02-14 12:10 | ECG_ITS ---
Measurements Intervals [place] Rate: 83 P: 245 [place]: 90 QRS: 62 QRSD: 87 T: 52 QT: 338 QTc: 398 Interpretive Statements REDUCED ECG QUALITY BECAUSE OF ELECTRICAL ARTIFACT SINUS RHYTHM WITH FIRST-DEGREE AV BLOCK NONSPECIFIC ST & T-WAVE ABNORMALITY ABNORMAL RHYTHM ECG COMPARED TO ECG 02/14/2022 06:02:02 ST SEGMENT DEPRESSION IS NOW IMPROVED Electronically Signed On 02-15-2022 15:34:58 CDT by James Salcedo M.D.
--- NOTE | 2022-02-14 13:06 | PC.NURSE ---
Dr. Elliott notifed of 8 beat vtach at 1015. Will continue to monitor, no additional orders at that time.
--- NOTE | 2022-02-14 13:37 | PC.NURSE ---
On 02/14/22, the student, [Ana Heath], provided care and completed [facility] documentation on this patient. I have reviewed the student's documentation and agree with the findings.
--- NOTE | 2022-02-14 14:53 | PM.IMPN ---
Progress Note: A&P Assessment and Plan (1) Acute hypoxemic respiratory failure: Code(s): J96.01 - Acute respiratory failure with hypoxia Status: Acute Assessment and Plan: acute hypoxemic respiratory failure probably related to pulmonary edema multifactorial secondary to IV fluid and possible ACS cardiology was notified aspirin was given patient was started on BiPAP chest pain completely resolved now with pending final cardiology recommendation hypercapnic respiratory failure started on BiPAP repeat ABG in 1 hour consider pulmonology evaluation for BiPAP management 02/14/2022 interval history: patient was clinically stable then went to hypoxia and went into exacerbation of CHF, patient was started on IV Lasix and place on BIPAP, patient also found to have elevated trops, patient was seen by cardiology recommended cardiac catheterization to further evaluate, however patient refused treated and does not want any invasive procedure to further evaluate patient will have a cardiac echo and stress test will continue to monitor and further recommendation to follow, patient also has a fracture of right humerus orthopedic surgeon recommending conservative management with sling and pain control. (2) NSTEMI (non-ST elevated myocardial infarction): Code(s): I21.4 - Non-ST elevation (NSTEMI) myocardial infarction Status: Acute Assessment and Plan: patient was seen by Cardiology recommended cardiac catheterization however patient refused (3) Closed fracture of surgical neck of humerus: Code(s): S42.213A - Unspecified displaced fracture of surgical neck of unspecified humerus, initial encounter for closed fracture Status: Acute Assessment and Plan: orthopedic recommending conservative management with sling no surgical intervention needed (4) Anemia: Code(s): D64.9 - Anemia, unspecified Status: Acute Assessment and Plan: 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 Subjective Date/time seen: 02/14/22 14:53 Chief Complaint: Right arm pain after fall Narrative: This is a 81-year-old male patient with a history of hypertension, diabetes, chronic kidney disease and hyperlipidemia.? The patient stated that he was coming up basement steps and he got to the very top 14.? When he felt dizzy and felt like he was going to pass out the patient stated he had a choice of falling backwards her leading for it and falling into the wall.? Patient stated that he fell into the wall and bruise of his right arm.? He had significant amount of bruising and pain to the right arm.? The patient had no head injury and did not lose consciousness.? The patient stated it has been harder and harder for him to get up the steps and then when he came up the steps he becomes very short of breath and feels like he is going to pass out.? The patient stated he did not hit his head or lose consciousness.? He denied any chest pain.? The patient's H&H is 9.4 and 28.9.? His creatinine was found to be 2.12.? His baseline is anywhere from 1.62-1.84.? He does have chronic renal failure stage 3.? His troponin at [facility] was 66.3 on a scale from 0-60.4 is normal.? Patient is not having any chest pain at this time.? Oxygen was applied at 2 L per nasal cannula.? Shoulder x-ray shows no evidence of right shoulder dislocation at [facility].? Head CT shows normal aging brain.? Right humerus was read as comminuted fracture of the right humeral head, with subluxation versus dislocation.? Consider right shoulder radiographs for further evaluation.? His EKG was read as the following ?SINUS RHYTHM WITH SINUS ARRHYTHMIA WITH FIRST DEGREE AV BLOCK N
[2022-02-14 16:42] LABS: Glucose Point of Care 173 mg/dl (65-105)
[2022-02-14] MEDS: HYDROcodone/acetaminophen (*CRX) 5-325 MG TABLET 1 TAB PO (17:40)
[2022-02-14 20:48] LABS: Glucose Point of Care 224 mg/dl (65-105)
[2022-02-14] MEDS: LATANOPROST 0.005% OP SOLN 2.5 ML BTL 1 DROP EACH EYE (21:36)
[2022-02-14] MEDS: carvediloL 6.25 MG TABLET PO (21:37)
[2022-02-14] MEDS: GABAPENTIN 100 MG CAPSULE PO (21:37)
[2022-02-14] MEDS: GABAPENTIN 300 MG CAPSULE PO (21:37)
[2022-02-15] VITALS (20 sets, daily range): BP systolic 106–126; BP diastolic 51–85; PULSE 69–101; RESP 18–31; TEMP 36.5–36.9; O2SAT 91–100
[2022-02-15 05:33] LABS: Hematocrit 23.3 % (42.0-52.0); Hemoglobin 7.6 g/dL (14.0-18.0); Mean Corpuscular HGB Conc 32.6 g/dl (32-36); Mean Corpuscular Hemoglobin 32.1 pg (26-34); Mean Corpuscular Volume 98.3 fl (80-100); Mean Platelet Volume 10.7 fl (7.4-10.4); Platelet Count Result 229 k/mm3 (150-375); Red Blood Count 2.37 M/mm3 (4.6-6.20); Red Cell Distribution Width 12.3 % (11.5-14.5); White Blood Count 13.6 K/mm3 (4.5-10.0)
[2022-02-15 05:48] LABS: Anion Gap 8 mmol/L (8-16); Blood Urea Nitrogen 65 mg/dL (9-20); Calcium 7.9 mg/dL (8.4-10.2); Carbon Dioxide 28 mmol/L (22-30); Chloride 99 mmol/L (98-107); Estimated CRCL calculation 17 ml/min; Estimated Glomerular Filt Rate 19; Glucose 173 mg/dL (65-110); Magnesium 2.1 mg/dL (1.6-2.3); Potassium 4.4 mmol/L (3.4-5.0); Sodium 135 mmol/L (137-145)
[2022-02-15 08:50] LABS: Glucose Point of Care 173 mg/dl (65-105)
[2022-02-15] MEDS: TERAZOSIN HCL 5 MG CAPSULE PO (09:06)
[2022-02-15] MEDS: LIDOCAINE 5% PATCH 1 PATCH TOPICAL (09:07)
[2022-02-15] MEDS: PANTOPRAZOLE 40 MG TABLET PO ×2 (09:07→18:28)
[2022-02-15] MEDS: ENOXAPARIN 80 MG/0.8 ML SYRINGE SUB-Q (09:07)
[2022-02-15] MEDS: CLOPIDOGREL BISULFATE 75 MG TABLET PO (09:07)
[2022-02-15] MEDS: CHOLECALCIFEROL 1,000 UNITS TABLET 1000 UNITS PO (09:07)
[2022-02-15] MEDS: carvediloL 6.25 MG TABLET PO ×2 (09:08→21:57)
[2022-02-15] MEDS: ATORVASTATIN 40 MG TABLET PO (09:09)
[2022-02-15] MEDS: amLODIPine BESYLATE 5 MG TABLET 10 MG PO (09:09)
[2022-02-15] MEDS: ASPIRIN 81 MG ENTERIC TABLET PO (09:09)
[2022-02-15 12:32] LABS: Glucose Point of Care 171 mg/dl (65-105)
--- NOTE | 2022-02-15 15:06 | PM.PNCARD ---
Progress Note: A&P Assessment and Plan (1) Aortic stenosis: Code(s): I35.0 - Nonrheumatic aortic (valve) stenosis Status: Acute (2) Left ventricular systolic dysfunction: Code(s): I51.9 - Heart disease, unspecified Status: Acute Plan This is an 81-year-old man with a fall at home and a humeral fracture while he is here he has been found to have aortic valve stenosis and evidence of coronary artery disease with mild LV systolic dysfunction. His nuclear stress test suggest evidence of a previous anteroapical infarction. He is now amenable to following up with us in the office following discharge and I will make sure that we have appointments for him to see Dr. Elliott and we will consider workup of his valvular heart disease and ischemic disease when he is recovered from his humeral fracture James Salcedo MD [facility] Subjective Date/time seen: Date of service: 02/15/22 15:06 Interval history: Follow-up visit in this 81-year-old man with: Transfer from [facility] for management of a humeral fracture following a fall at home. We were consulted because of elevated troponin. Patient has been found by noninvasive evaluation to have some left ventricular systolic dysfunction, low nuclear stress test evidence of a previous anteroapical infarction as well as significant aortic valve stenosis. Patient told my partner yesterday he was not interested in pursuing any evaluation or treatment of this. Today he says he would be amenable to follow-up with us and consider treatment of his heart disease when he is recovered from his fracture. Exam Const: General: comfortable and no acute distress Other: Pleasant elderly man supine in bed was sleeping upon awakening offers no complaints HENMT: Mouth: Yes moist mucous membranes Eyes: Sclera: sclerae normal Neck: Neck: supple Resp: Effort & Inspection: normal respiratory effort Auscultation: clear to auscultation bilaterally Cardio: Rate: regular rate Rhythm: regular rhythm Other: High-pitched grade 2/6 crescendo decrescendo murmur peaking in mid to late systole. GI: GI Palp: Yes Soft to palpation Auscultation: normal bowel sounds Skin: General skin exam: normal color Neuro: Other: Patient is alert and oriented x3 Extrem: Other: Adequate perfusion in all 4 limbs no edema Objective Data Vital Signs Vital Signs: Vital Signs - 24 hr 02/14/22 16:00 02/14/22 16:00 02/14/22 18:00 Temperature 37.2 C Pulse Rate 94 84 86 Respiratory Rate 16 Blood Pressure 95/55 L Pulse Oximetry 91 Oxygen Delivery Oxygen Flow Rate 02/14/22 16:00 02/14/22 20:00 02/14/22 21:37 Temperature 36.6 C Pulse Rate 86 82 Respiratory Rate 16 Blood Pressure 98/56 L Pulse Oximetry 92 97 Oxygen Delivery Nasal Cannula Oxygen Flow Rate 2 02/14/22 20:00 02/14/22 23:58 02/15/22 00:08 Temperature 36.4 C Pulse Rate 81 91 Respiratory Rate 18 21 H Blood Pressure 98/52 L Pulse Oximetry 97 97 100 Oxygen Delivery Nasal Cannula BiPAP Oxygen Flow Rate 2 02/15/22 00:00 02/14/22 20:00 02/14/22 22:00 Temperature Pulse Rate 76 88 Respiratory Rate Blood Pressure Pulse Oximetry 100 Oxygen Delivery Nasal Cannula Oxygen Flow Rate 3 02/15/22 00:00 02/15/22 02:00 02/15/22 04:00 Temperature Pulse Rate 74 71 69 Respiratory Rate Blood Pressure Pulse Oximetry Oxygen Delivery Oxygen Flow Rate 02/15/22 04:00 02/15/22 04:00 02/15/22 06:00 Temperature 36.5 C Pulse Rate 72 73 Respiratory Rate 18 Blood Pressure 106/51 L Pulse Oximetry 97 96 Oxygen Delivery Nasal Cannula Oxygen Flow Rate 5 02/15/22 08:00 02/15/22 09:08 02/15/22 11:00 Temperature 36.8 C Pulse Rate 80 80 Respiratory Rate 18 Blood Pressure 108/51 L Pulse Oximetry 98 91 Oxygen Delivery Nasal Cannula Oxygen Flow Rate 5 02/15/22 08:00 02/15/22 08:00 02/15/22 10:00 Temperature Pulse
--- NOTE | 2022-02-15 15:57 | PCPTNOTE ---
Attempted to evaluate patient, but nursing reports they were trying to get him up and he is now on a BIpap. Will attempt to see when more medically stable.
--- NOTE | 2022-02-15 16:06 | PC.NURSE ---
Patient had increased shortness of breath, patient oxygen level at 64% and working to breath. Patient placed back on the bipap, oxygen level increased and work of breathing subsided. EKG taken. Called dr. rosenbaum, telephone orders of stat Chest Xray and DDimer entered. Will continue to monitor per IMU protocol.
--- NOTE | 2022-02-15 17:01 | PM.IMPN ---
Progress Note: A&P Assessment and Plan (1) Acute hypoxemic respiratory failure: Code(s): J96.01 - Acute respiratory failure with hypoxia Status: Acute Assessment and Plan: acute hypoxemic respiratory failure probably related to pulmonary edema multifactorial secondary to IV fluid and possible ACS cardiology was notified aspirin was given patient was started on BiPAP chest pain completely resolved now with pending final cardiology recommendation hypercapnic respiratory failure started on BiPAP repeat ABG in 1 hour consider pulmonology evaluation for BiPAP management 02/15/2022 interval history: patient was clinically stable then went to hypoxia and went into exacerbation of CHF, patient was started on IV Lasix and place on BIPAP, patient also found to have elevated trops, patient was seen by cardiology recommended cardiac catheterization to further evaluate, however patient refused treated and does not want any invasive procedure to further evaluate patient will have a cardiac echo and stress test will continue to monitor and further recommendation to follow, today again patient was seen by layboy tender as patient is fount to have aortic stenosis, patient will follow up upon discharge with the layboy tender, patient also has a fracture of right humerus orthopedic surgeon recommending conservative management with sling and pain control. (2) NSTEMI (non-ST elevated myocardial infarction): Code(s): I21.4 - Non-ST elevation (NSTEMI) myocardial infarction Status: Acute Assessment and Plan: patient was seen by Cardiology recommended cardiac catheterization however patient refused (3) Closed fracture of surgical neck of humerus: Code(s): S42.213A - Unspecified displaced fracture of surgical neck of unspecified humerus, initial encounter for closed fracture Status: Acute Assessment and Plan: orthopedic recommending conservative management with sling no surgical intervention needed (4) Anemia: Code(s): D64.9 - Anemia, unspecified Status: Acute Assessment and Plan: 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 Subjective Date/time seen: 02/15/22 17:01 02/15/2022 interval history: patient was clinically stable then went to hypoxia and went into exacerbation of CHF, patient was started on IV Lasix and place on BIPAP, patient also found to have elevated trops, patient was seen by cardiology recommended cardiac catheterization to further evaluate, however patient refused treated and does not want any invasive procedure to further evaluate patient will have a cardiac echo and stress test will continue to monitor and further recommendation to follow, today again patient was seen by layboy tender as patient is fount to have aortic stenosis, patient will follow up upon discharge with the layboy tender, patient also has a fracture of right humerus orthopedic surgeon recommending conservative management with sling and pain control. Review of Systems Review of Systems: All systems reviewed & are unremarkable except as noted in HPI and below Exam Narrative: elderly frail Patient is comfortable, NAD HEENT: eyes are clear and none icteric LUNGS: bilateral fair with rales and rhonchi HEART: RR S1S2 ABD: BS+, Soft and nontender Lower extremities: no edema MS: right arm in the sling SKIN: nonjaundiced Neuro: grossly intact. Objective Data Vital Signs Vital Signs: Vital Signs - 24 hr 02/14/22 18:00 02/14/22 20:00 02/14/22 21:37 Temperature 97.9 F Pulse Rate 86 86 82 Respiratory Rate 16 Blood Pressure 98/56 L Pulse Oximetry 97 Oxygen Delivery Oxygen Flow Rate Frac
[2022-02-15 17:09] LABS: Glucose Point of Care 220 mg/dl (65-105)
[2022-02-15 17:15] LABS: D Dimer 3.11 ug/mL (<0.48)
[2022-02-15 18:24] LABS: Glucose Point of Care 193 mg/dl (65-105)
[2022-02-15 18:33] LABS: Basophils Percent Auto 0.1 % (0.2-1.2); Eosinophils Percent Auto 0.1 % (0-4.4); Hematocrit 24.7 % (42.0-52.0); Immature Granulocyte Absolute 0.14 K/mm3 (0.00-0.031); Immature Granulocyte Percent A 0.9 % (0-0.5); Lymphocytes Absolute Auto 0.65 K/mm3 (0.9-3.2); Mean Corpuscular HGB Conc 32.4 g/dl (32-36); Mean Corpuscular Hemoglobin 32.4 pg (26-34); Monocytes Absolute Auto 1.1 K/mm3 (0.1-0.6); Monocytes Percent Auto 6.9 % (2.6-8.5); Neutrophils Absolute Auto 14.3 K/mm3 (1.3-6.7); Platelet Count Result 237 k/mm3 (150-375); Red Blood Count 2.47 M/mm3 (4.6-6.20); Red Cell Distribution Width 12.4 % (11.5-14.5); White Blood Count 16.2 K/mm3 (4.5-10.0)
[2022-02-15 18:42] LABS: Partial Thromboplastin Time 32.2 SECONDS (22.3-36.8)
[2022-02-15 18:43] LABS: INR 1.2; Prothrombin Time 14.4 Seconds (11.1-14.7)
[2022-02-15 18:44] LABS: Partial Thromboplastin Time 32.3 SECONDS (22.3-36.8)
[2022-02-15 19:48] LABS: Glucose Point of Care 187 mg/dl (65-105)
[2022-02-15] MEDS: GABAPENTIN 300 MG CAPSULE PO (21:57)
[2022-02-15] MEDS: GABAPENTIN 100 MG CAPSULE PO (21:57)
[2022-02-15] MEDS: LATANOPROST 0.005% OP SOLN 2.5 ML BTL 1 DROP EACH EYE (21:58)
[2022-02-16] VITALS (16 sets, daily range): BP systolic 110–122; BP diastolic 51–66; PULSE 79–99; RESP 13–22; TEMP 36.5–37.2; O2SAT 95–99
--- NOTE | 2022-02-16 00:51 | ECG_ITS ---
Measurements Intervals [place] Rate: 88 P: NV: 0 QRS: 55 QRSD: 94 T: -84 QT: 336 QTc: 408 Interpretive Statements ATRIAL FIBRILLATION ST DEVIATION AND MODERATE T-WAVE ABNORMALITY, CONSIDER INFERIOR ISCHEMIA ABNORMAL ECG COMPARED TO ECG 02/14/2022 12:10:08 ATRIAL FIBRILLATION NOW PRESENT Electronically Signed On 02-16-2022 15:17:55 CDT by Hung Burns M.D.
[2022-02-16 04:44] LABS: Basophils Percent Auto 0.1 % (0.2-1.2); Eosinophils Percent Auto 0.1 % (0-4.4); Hematocrit 22.6 % (42.0-52.0); Hemoglobin 7.5 g/dL (14.0-18.0); Immature Granulocyte Absolute 0.07 K/mm3 (0.00-0.031); Immature Granulocyte Percent A 0.6 % (0-0.5); Lymphocytes Absolute Auto 0.93 K/mm3 (0.9-3.2); Lymphocytes Percent Auto 7.7 % (18.3-44.2); Mean Corpuscular HGB Conc 33.2 g/dl (32-36); Mean Corpuscular Hemoglobin 32.3 pg (26-34); Mean Corpuscular Volume 97.4 fl (80-100); Mean Platelet Volume 10.7 fl (7.4-10.4); Monocytes Percent Auto 8.5 % (2.6-8.5); Neutrophils Absolute Auto 10.1 K/mm3 (1.3-6.7); Platelet Count Result 235 k/mm3 (150-375); Red Blood Count 2.32 M/mm3 (4.6-6.20); Red Cell Distribution Width 12.5 % (11.5-14.5); White Blood Count 12.1 K/mm3 (4.5-10.0)
[2022-02-16 05:00] LABS: Anion Gap 10 mmol/L (8-16); Blood Urea Nitrogen 81 mg/dL (9-20); Calcium 8.1 mg/dL (8.4-10.2); Carbon Dioxide 30 mmol/L (22-30); Chloride 97 mmol/L (98-107); Estimated CRCL calculation 18 ml/min; Estimated Glomerular Filt Rate 21; Glucose 159 mg/dL (65-110); Magnesium 2.3 mg/dL (1.6-2.3); Potassium 3.8 mmol/L (3.4-5.0); Sodium 137 mmol/L (137-145)
[2022-02-16 08:55] LABS: Glucose Point of Care 152 mg/dl (65-105)
[2022-02-16] MEDS: CLOPIDOGREL BISULFATE 75 MG TABLET PO (09:23)
[2022-02-16] MEDS: CHOLECALCIFEROL 1,000 UNITS TABLET 1000 UNITS PO (09:23)
[2022-02-16] MEDS: TERAZOSIN HCL 5 MG CAPSULE PO (09:23)
[2022-02-16] MEDS: ENOXAPARIN 80 MG/0.8 ML SYRINGE SUB-Q (09:23)
[2022-02-16] MEDS: PANTOPRAZOLE 40 MG TABLET PO ×2 (09:23→17:52)
[2022-02-16] MEDS: ATORVASTATIN 40 MG TABLET PO (09:24)
[2022-02-16] MEDS: ASPIRIN 81 MG ENTERIC TABLET PO (09:24)
[2022-02-16] MEDS: carvediloL 6.25 MG TABLET PO ×2 (09:24→20:25)
[2022-02-16] MEDS: amLODIPine BESYLATE 5 MG TABLET 10 MG PO (09:24)
--- NOTE | 2022-02-16 11:52 | PCSTNOTE ---
Please refer to the Bedside Swallow Evaluation in the EMR. Please note, silent aspiration cannot be ruled out at bedside.
--- NOTE | 2022-02-16 12:19 | PCSTNOTE ---
On 02/16/22, the student, Ladonna Layne, provided care and completed [facility] documentation on this patient. I have reviewed the student's documentation and agree with the findings.
--- NOTE | 2022-02-16 13:43 | PM.PNCARD ---
Progress Note: A&P Assessment and Plan (1) New onset atrial fibrillation: Code(s): I48.91 - Unspecified atrial fibrillation Status: Acute Assessment and Plan: Asymptomatic, intermittent RVR although heart rate generally well controlled at this time. Continue carvedilol 6.25 mg twice daily. He is on enoxaparin 80 mg subcutaneous Q 24 hour. However, GFR is now less than 30 so will need to discontinue favor of alternative anticoagulant. Heparin infusion best alternative in the short-term although oral anticoagulation Eliquis 2.5 mg twice daily for walk stroke risk reduction given atrial fibrillation. SCDs or SC heparin for DVT prophylaxis. Consider initiating Eliquis if okay with surgery. Would not start Eliquis until tomorrow evening given clearance of Enoxaparin in setting of RONAK. Heart rate control strategy for the time being. As patient is at high risk for bleeding complications will need to determine candidacy for ongoing systemic anticoagulation given presentation. I explained to the patient pathophysiology, embolic stroke risk associated with atrial fibrillation and risks and benefits associated with anticoagulation. (2) Aortic stenosis: Code(s): I35.0 - Nonrheumatic aortic (valve) stenosis Status: Acute Assessment and Plan: Moderate to severe aortic stenosis valve area 1.0 centimeters squared mean gradient 30 mm Hg peak velocity 3.5 m/sec. (3) Left ventricular systolic dysfunction: Code(s): I51.9 - Heart disease, unspecified Status: Acute Assessment and Plan: Patient is not in decompensated heart failure at this time he remains at risk. EF 40% apical inferoseptal hypokinesis with stress tests showing moderate size fixed mild perfusion defect at the apex, apical inferior and apical septal wall consistent with infarction without ischemia. Patient declined invasive angiography at this time preferring medical management. Was started on dual antiplatelet therapy statin and beta-blockers. (4) Qyfop-yt-krozpmy kidney injury: Code(s): N17.9 - Acute kidney failure, unspecified; N18.9 - Chronic kidney disease, unspecified Status: Acute Assessment and Plan: Acute renal insufficiency stable yet significant ongoing increase in BUN. Minimize nephrotoxic agents. Will need to discontinue enoxaparin therapeutic dosing CrCl less than 30 particularly as following anti XA levels not a practical option at this institution. Patient at high risk for bleeding complications. (5) NSTEMI (non-ST elevated myocardial infarction): Code(s): I21.4 - Non-ST elevation (NSTEMI) myocardial infarction Status: Acute Assessment and Plan: As above. Therapeutic Enoxaparin will be discontinued given worsening renal failure. (6) Acute hypoxemic respiratory failure: Code(s): J96.01 - Acute respiratory failure with hypoxia Status: Acute Assessment and Plan: Improving, remains on O2 supplementation. Bedside swallow eval ordered given concern for possible aspiration this morning after eating breakfast. Defer to primary service in this regard. (7) Anemia: Code(s): D64.9 - Anemia, unspecified Status: Acute Assessment and Plan: Severe, stable at present. Monitor H&H and for signs of bleeding. Patient high risk Plan This is an 81-year-old man with a fall at home and a humeral fracture while he is here he has been found to have aortic valve stenosis and evidence of coronary artery disease with mild LV systolic dysfunction. His nuclear stress test suggest evidence of a previous anteroapical infarction. He is now amenable to following up with us in the office following discharge and I will make sure that we have appointments for him to see Dr. Elliott and we will consider workup of his valvular heart disease and ischemic disease when he is recovered from his humeral fracture James Salcedo MD [facility] Subjective Date/time seen: Date of service:
[2022-02-16 14:22] LABS: Glucose Point of Care 188 mg/dl (65-105)
--- NOTE | 2022-02-16 15:11 | PCSTNOTE ---
Please refer to the Modified Barium Swallow Evaluation in the EMR.
--- NOTE | 2022-02-16 15:33 | PM.IMPN ---
Progress Note: A&P Assessment and Plan (1) Acute hypoxemic respiratory failure: Code(s): J96.01 - Acute respiratory failure with hypoxia Status: Acute Assessment and Plan: acute hypoxemic respiratory failure probably related to pulmonary edema multifactorial secondary to IV fluid and possible ACS cardiology was notified aspirin was given patient was started on BiPAP chest pain completely resolved now with pending final cardiology recommendation hypercapnic respiratory failure started on BiPAP repeat ABG in 1 hour consider pulmonology evaluation for BiPAP management 02/16/2022 interval history: patient was clinically stable then went to hypoxia and went into exacerbation of CHF, patient was started on IV Lasix and place on BIPAP, patient also found to have elevated trops, patient was seen by cardiology recommended cardiac catheterization to further evaluate, however patient refused to be treated and does not want any invasive procedure, to further evaluate patient had stress test showing fixed defect and EF of 40%, will continue to monitor and further recommendation to follow, today again patient was seen by private mortgage banker safe as patient is fount to have aortic stenosis, Patient with A.Fib being treated with Lovenox 80 qd as patient has RONAK, may need to switch to oral anticoagulation before discahrging, patient will follow up upon discharge with the private mortgage banker safe, patient also has a fracture of right humerus orthopedic surgeon recommending conservative management with sling and pain control. (2) NSTEMI (non-ST elevated myocardial infarction): Code(s): I21.4 - Non-ST elevation (NSTEMI) myocardial infarction Status: Acute Assessment and Plan: patient was seen by Cardiology recommended cardiac catheterization however patient refused (3) Closed fracture of surgical neck of humerus: Code(s): S42.213A - Unspecified displaced fracture of surgical neck of unspecified humerus, initial encounter for closed fracture Status: Acute Assessment and Plan: orthopedic recommending conservative management with sling no surgical intervention needed (4) Anemia: Code(s): D64.9 - Anemia, unspecified Status: Acute Assessment and Plan: 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 Subjective Date/time seen: 02/16/22 15:33 02/16/2022 interval history: patient was clinically stable then went to hypoxia and went into exacerbation of CHF, patient was started on IV Lasix and place on BIPAP, patient also found to have elevated trops, patient was seen by cardiology recommended cardiac catheterization to further evaluate, however patient refused to be treated and does not want any invasive procedure, to further evaluate patient had stress test showing fixed defect and EF of 40%, will continue to monitor and further recommendation to follow, today again patient was seen by private mortgage banker safe as patient is fount to have aortic stenosis, Patient with A.Fib being treated with Lovenox 80 qd as patient has RONAK, may need to switch to oral anticoagulation before discahrging, patient will follow up upon discharge with the private mortgage banker safe, patient also has a fracture of right humerus orthopedic surgeon recommending conservative management with sling and pain control. Review of Systems Review of Systems: All systems reviewed & are unremarkable except as noted in HPI and below Exam Narrative: elderly frail Patient is comfortable, NAD HEENT: eyes are clear and none icteric LUNGS: bilateral fair with rales and rhonchi HEART: RR S1S2 ABD: BS+, Soft and nontender Lower extremities: no edema MS: right arm in the sling SKIN: nonjaund
[2022-02-16 16:30] LABS: Glucose Point of Care 165 mg/dl (65-105)
[2022-02-16 20:22] LABS: Glucose Point of Care 197 mg/dl (65-105)
[2022-02-16] MEDS: GABAPENTIN 100 MG CAPSULE PO (20:25)
[2022-02-16] MEDS: LATANOPROST 0.005% OP SOLN 2.5 ML BTL 1 DROP EACH EYE (20:26)
[2022-02-16] MEDS: GABAPENTIN 300 MG CAPSULE PO (20:26)
[2022-02-17] VITALS (16 sets, daily range): BP systolic 96–126; BP diastolic 54–97; PULSE 74–99; RESP 16–22; TEMP 36.6–37.4; O2SAT 94–100
[2022-02-17 04:54] LABS: Hematocrit 24.5 % (42.0-52.0); Mean Corpuscular HGB Conc 32.7 g/dl (32-36); Mean Corpuscular Hemoglobin 32.5 pg (26-34); Mean Corpuscular Volume 99.6 fl (80-100); Mean Platelet Volume 10.4 fl (7.4-10.4); Platelet Count Result 278 k/mm3 (150-375); Red Blood Count 2.46 M/mm3 (4.6-6.20); Red Cell Distribution Width 12.6 % (11.5-14.5); White Blood Count 11.1 K/mm3 (4.5-10.0)
[2022-02-17 05:04] LABS: Anion Gap 7 mmol/L (8-16); Blood Urea Nitrogen 75 mg/dL (9-20); Calcium 8.6 mg/dL (8.4-10.2); Carbon Dioxide 32 mmol/L (22-30); Chloride 101 mmol/L (98-107); Estimated CRCL calculation 23 ml/min; Estimated Glomerular Filt Rate 27; Glucose 164 mg/dL (65-110); Magnesium 2.5 mg/dL (1.6-2.3); Potassium 3.5 mmol/L (3.4-5.0); Sodium 140 mmol/L (137-145)
[2022-02-17 08:11] LABS: Glucose Point of Care 166 mg/dl (65-105)
[2022-02-17] MEDS: PANTOPRAZOLE 40 MG TABLET PO ×2 (09:39→17:04)
[2022-02-17] MEDS: TERAZOSIN HCL 5 MG CAPSULE PO (09:39)
[2022-02-17] MEDS: POTASSIUM CHLORIDE 20 MEQ TABLET 40 MEQ PO (09:40)
[2022-02-17] MEDS: ATORVASTATIN 40 MG TABLET PO (09:40)
[2022-02-17] MEDS: carvediloL 6.25 MG TABLET PO ×2 (09:40→21:53)
[2022-02-17] MEDS: ASPIRIN 81 MG ENTERIC TABLET PO (09:40)
[2022-02-17] MEDS: CLOPIDOGREL BISULFATE 75 MG TABLET PO (09:40)
[2022-02-17] MEDS: CHOLECALCIFEROL 1,000 UNITS TABLET 1000 UNITS PO (09:40)
[2022-02-17] MEDS: amLODIPine BESYLATE 5 MG TABLET 10 MG PO (09:40)
--- NOTE | 2022-02-17 10:26 | PM.PNCARD ---
Progress Note: A&P Assessment and Plan (1) New onset atrial fibrillation: Code(s): I48.91 - Unspecified atrial fibrillation Status: Acute Assessment and Plan: Asymptomatic, intermittent RVR although heart rate generally well controlled at this time. Continue carvedilol 6.25 mg twice daily. He is on enoxaparin 80 mg subcutaneous Q 24 hour. However, GFR is now less than 30 so will need to discontinue favor of alternative anticoagulant. Heparin infusion best alternative in the short-term although oral anticoagulation Eliquis 2.5 mg twice daily for walk stroke risk reduction given atrial fibrillation. SCDs or SC heparin for DVT prophylaxis. Consider initiating Eliquis if okay with surgery. Would not start Eliquis until tomorrow evening given clearance of Enoxaparin in setting of RONAK. Heart rate control strategy for the time being. As patient is at high risk for bleeding complications will need to determine candidacy for ongoing systemic anticoagulation given presentation. I explained to the patient pathophysiology, embolic stroke risk associated with atrial fibrillation and risks and benefits associated with anticoagulation. Add Eliquis 2.5 mg twice daily. Discontinue aspirin, continue clopidogrel. Patient is adamant he has not had any other falls in the past and states he is very careful. He wishes to begin systemic anticoagulation for stroke risk reduction. He understands bleeding risk and the risks and benefits. All questions answered to his satisfaction. He has clear he states he does not want to have stroke and wishes to begin anticoagulant therapy. Monitor very closely for bleeding. Follow H&H. (2) Aortic stenosis: Code(s): I35.0 - Nonrheumatic aortic (valve) stenosis Status: Acute Assessment and Plan: Moderate to severe aortic stenosis valve area 1.0 centimeters squared mean gradient 30 mm Hg peak velocity 3.5 m/sec. (3) Left ventricular systolic dysfunction: Code(s): I51.9 - Heart disease, unspecified Status: Acute Assessment and Plan: Patient is not in decompensated heart failure at this time he remains at risk. EF 40% apical inferoseptal hypokinesis with stress tests showing moderate size fixed mild perfusion defect at the apex, apical inferior and apical septal wall consistent with infarction without ischemia. Patient declined invasive angiography at this time preferring medical management. Was started on dual antiplatelet therapy statin and beta-blockers. (4) Fvbud-fr-gimraav kidney injury: Code(s): N17.9 - Acute kidney failure, unspecified; N18.9 - Chronic kidney disease, unspecified Status: Acute Assessment and Plan: Acute renal insufficiency stable yet significant ongoing increase in BUN. Minimize nephrotoxic agents. Enoxaparin discontinued. Will begin Eliquis 2.5 mg twice daily for embolic stroke risk reduction due to AFib. (5) NSTEMI (non-ST elevated myocardial infarction): Code(s): I21.4 - Non-ST elevation (NSTEMI) myocardial infarction Status: Acute Assessment and Plan: As above. Therapeutic Enoxaparin will be discontinued given worsening renal failure. Remains on ASA and clopidogrel. Will discontinue aspirin with systemic anticoagulation. (6) Acute hypoxemic respiratory failure: Code(s): J96.01 - Acute respiratory failure with hypoxia Status: Acute Assessment and Plan: Improving, remains on O2 supplementation. Bedside swallow eval noted. Aspiration. Six Defer to primary service in this regard. (7) Anemia: Code(s): D64.9 - Anemia, unspecified Status: Acute Assessment and Plan: stable at present. Monitor H&H and for signs of bleeding. Subjective Date/time seen: date of service:02/17/22 10:26 Interval history: Follow-up visit in this 81-year-old man with: Transfer from [facility] for management of a humeral fracture following a fall at home, elevated troponin. Isma
[2022-02-17] MEDS: LIDOCAINE 5% PATCH 1 PATCH TOPICAL (11:23)
[2022-02-17 12:47] LABS: Glucose Point of Care 180 mg/dl (65-105)
--- NOTE | 2022-02-17 13:42 | PC.NURSE ---
This patient, [facility], was transferred to [facility] on 02/17/22 at 1338. Personal belongings sent with patient. Report given to Nithya MCDANIEL. Appropriate documentation sent with patient.
--- NOTE | 2022-02-17 13:44 | PC.NURSE ---
On 02/17/22, the student, Carmela Jackson, provided care and completed [employer] documentation on this patient. I have reviewed the student's documentation and agree with the findings.
--- NOTE | 2022-02-17 14:47 | PM.IMPN ---
Progress Note: A&P Assessment and Plan (1) Acute hypoxemic respiratory failure: Code(s): J96.01 - Acute respiratory failure with hypoxia Status: Acute Assessment and Plan: acute hypoxemic respiratory failure probably related to pulmonary edema multifactorial secondary to IV fluid and possible ACS cardiology was notified aspirin was given patient was started on BiPAP chest pain completely resolved now with pending final cardiology recommendation hypercapnic respiratory failure started on BiPAP repeat ABG in 1 hour consider pulmonology evaluation for BiPAP management 02/17/2022 interval history: patient was clinically stable upon arrival then went to hypoxia and went into exacerbation of CHF, patient was started on IV Lasix and place on BIPAP, patient also found to have elevated trops, patient was seen by cardiology recommended cardiac catheterization to further evaluate, however patient refused to be treated and does not want any invasive procedure, to further evaluate patient had stress test showing fixed defect and EF of 40%, will continue to monitor and further recommendation to follow, patient was seen by day spa manager as patient is fount to have aortic stenosis, Patient with A.Fib was treated with Lovenox 80 qd as patient has RONAK, today day spa manager stopped Lovenox and started patient on Eliquis 2.5mg BID and continued plavix, patient will follow up upon discharge with the day spa manager, patient also has a fracture of right humerus orthopedic surgeon recommending conservative management with sling and pain control. today patient son is present in the room, discussed and answer all his questions, patient will benefit going to SNF rehab before going as patient will need help with his ADLs. (2) NSTEMI (non-ST elevated myocardial infarction): Code(s): I21.4 - Non-ST elevation (NSTEMI) myocardial infarction Status: Acute Assessment and Plan: patient was seen by Cardiology recommended cardiac catheterization however patient refused (3) Closed fracture of surgical neck of humerus: Code(s): S42.213A - Unspecified displaced fracture of surgical neck of unspecified humerus, initial encounter for closed fracture Status: Acute Assessment and Plan: orthopedic recommending conservative management with sling no surgical intervention needed (4) Anemia: Code(s): D64.9 - Anemia, unspecified Status: Acute Assessment and Plan: 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 Subjective Date/time seen: 02/17/22 14:47 02/17/2022 interval history: patient was clinically stable upon arrival then went to hypoxia and went into exacerbation of CHF, patient was started on IV Lasix and place on BIPAP, patient also found to have elevated trops, patient was seen by cardiology recommended cardiac catheterization to further evaluate, however patient refused to be treated and does not want any invasive procedure, to further evaluate patient had stress test showing fixed defect and EF of 40%, will continue to monitor and further recommendation to follow, patient was seen by day spa manager as patient is fount to have aortic stenosis, Patient with A.Fib was treated with Lovenox 80 qd as patient has RONAK, today day spa manager stopped Lovenox and started patient on Eliquis 2.5mg BID and continued plavix, patient will follow up upon discharge with the day spa manager, patient also has a fracture of right humerus orthopedic surgeon recommending conservative management with sling and pain control. today patient son is present in the room, discussed and answer all his questions, patient will benefit going to SNF rehab before going as pat
[2022-02-17 16:40] LABS: Glucose Point of Care 150 mg/dl (65-105)
[2022-02-17] MEDS: GABAPENTIN 100 MG CAPSULE PO (21:50)
[2022-02-17] MEDS: GABAPENTIN 300 MG CAPSULE PO (21:51)
[2022-02-17] MEDS: LATANOPROST 0.005% OP SOLN 2.5 ML BTL 1 DROP EACH EYE (21:51)
[2022-02-17] MEDS: APIXABAN 2.5 MG TABLET PO (21:52)
[2022-02-17 23:48] LABS: Glucose Point of Care 155 mg/dl (65-105)
[2022-02-18] VITALS (7 sets, daily range): BP systolic 95–126; BP diastolic 61–72; PULSE 78–94; RESP 14–24; TEMP 35.7–36.5; O2SAT 96–100
[2022-02-18 06:39] LABS: Hematocrit 25.2 % (42.0-52.0); Hemoglobin 7.9 g/dL (14.0-18.0); Mean Corpuscular HGB Conc 31.3 g/dl (32-36); Mean Corpuscular Hemoglobin 32.2 pg (26-34); Mean Corpuscular Volume 102.9 fl (80-100); Mean Platelet Volume 10.9 fl (7.4-10.4); Platelet Count Result 327 k/mm3 (150-375); Red Blood Count 2.45 M/mm3 (4.6-6.20); Red Cell Distribution Width 12.8 % (11.5-14.5); White Blood Count 10.3 K/mm3 (4.5-10.0)
[2022-02-18 07:02] LABS: Anion Gap 12 mmol/L (8-16); Blood Urea Nitrogen 65 mg/dL (9-20); Calcium 8.5 mg/dL (8.4-10.2); Carbon Dioxide 32 mmol/L (22-30); Chloride 102 mmol/L (98-107); Estimated CRCL calculation 24 ml/min; Estimated Glomerular Filt Rate 29; Glucose 153 mg/dL (65-110); Magnesium 2.6 mg/dL (1.6-2.3); Potassium 3.6 mmol/L (3.4-5.0); Sodium 146 mmol/L (137-145)
[2022-02-18 08:14] LABS: Glucose Point of Care 142 mg/dl (65-105)
--- NOTE | 2022-02-18 08:29 | PM.PNCARD ---
Progress Note: A&P Assessment and Plan (1) New onset atrial fibrillation: Code(s): I48.91 - Unspecified atrial fibrillation Status: Acute Assessment and Plan: Asymptomatic, intermittent RVR although heart rate generally well controlled at this time. Continue carvedilol 6.25 mg twice daily. Continue Eliquis 2.5 mg twice daily. Monitor very closely for bleeding. Follow H&H. heart rate is controlled. KCL 20 mEq p.o. x1 (2) Aortic stenosis: Code(s): I35.0 - Nonrheumatic aortic (valve) stenosis Status: Acute Assessment and Plan: Moderate to severe aortic stenosis valve area 1.0 centimeters squared mean gradient 30 mm Hg peak velocity 3.5 m/sec. (3) Left ventricular systolic dysfunction: Code(s): I51.9 - Heart disease, unspecified Status: Acute Assessment and Plan: Patient is not in decompensated heart failure at this time he remains at risk. EF 40% apical inferoseptal hypokinesis with stress tests showing moderate size fixed mild perfusion defect at the apex, apical inferior and apical septal wall consistent with infarction without ischemia. Patient declined invasive angiography at this time preferring medical management. Was started on antiplatelet therapy statin and beta-blockers. (4) Vasvd-gv-kwczlbo kidney injury: Code(s): N17.9 - Acute kidney failure, unspecified; N18.9 - Chronic kidney disease, unspecified Status: Acute Assessment and Plan: Acute renal insufficiency stable yet significant ongoing increase in BUN. Minimize nephrotoxic agents. Enoxaparin discontinued. continue Eliquis 2.5 mg twice daily for embolic stroke risk reduction due to AFib. (5) NSTEMI (non-ST elevated myocardial infarction): Code(s): I21.4 - Non-ST elevation (NSTEMI) myocardial infarction Status: Acute Assessment and Plan: As above. Therapeutic Enoxaparin will be discontinued given worsening renal failure. Remains on Eliquis and clopidogrel. Will discontinue aspirin with systemic anticoagulation. (6) Acute hypoxemic respiratory failure: Code(s): J96.01 - Acute respiratory failure with hypoxia Status: Acute Assessment and Plan: Improving, remains on O2 supplementation. Bedside swallow eval noted. Aspiration. Six Defer to primary service in this regard. (7) Anemia: Code(s): D64.9 - Anemia, unspecified Status: Acute Assessment and Plan: stable at present. Monitor H&H and for signs of bleeding. Subjective Date/time seen: 02/18/22 08:29 Interval history: Follow-up visit in this 81-year-old man with: Transfer from [facility] for management of a humeral fracture following a fall at home, elevated troponin. Patient has been found by noninvasive evaluation to have some left ventricular systolic dysfunction, low nuclear stress test evidence of a previous anteroapical infarction as well as significant aortic valve stenosis. Patient told my partner yesterday he was not interested in pursuing any evaluation or treatment of this. Today he says he would be amenable to follow-up with us and consider treatment of his heart disease when he is recovered from his fracture. Patient feels okay, tired. Swallow evaluation revealed laryngeal penetration and aspiration for which he was given thickened liquids. Denies chest pain or worsening shortness of breath. No palpitations. Heart rate controlled on telemetry. Remains on O2. date of service 02/18/2022: Anxious about going home. Feels okay and denies any chest pain or shortness of. Review of Systems Review of Systems: All systems reviewed & are unremarkable except as noted in HPI and below Constitutional: Constitutional: Reports as per HPI and Reports no additional constitutional complaints Eyes: Eyes: Reports as per HPI and Reports no additional eye complaints ENT: Reports system reviewed and no additional complaints, except as documented and Reports as pe
[2022-02-18] MEDS: POTASSIUM CHLORIDE 20 MEQ TABLET PO (09:04)
[2022-02-18] MEDS: TERAZOSIN HCL 5 MG CAPSULE PO (09:04)
[2022-02-18] MEDS: CLOPIDOGREL BISULFATE 75 MG TABLET PO (09:06)
[2022-02-18] MEDS: APIXABAN 2.5 MG TABLET PO (09:06)
[2022-02-18] MEDS: PANTOPRAZOLE 40 MG TABLET PO (09:06)
[2022-02-18] MEDS: ATORVASTATIN 40 MG TABLET PO (09:06)
[2022-02-18] MEDS: CHOLECALCIFEROL 1,000 UNITS TABLET 1000 UNITS PO (09:06)
[2022-02-18] MEDS: amLODIPine BESYLATE 5 MG TABLET 10 MG PO (09:06)
[2022-02-18] MEDS: LIDOCAINE 5% PATCH 1 PATCH TOPICAL (09:06)
[2022-02-18] MEDS: carvediloL 6.25 MG TABLET PO (09:06)
[2022-02-18 11:46] LABS: Glucose Point of Care 202 mg/dl (65-105)
[2022-02-18] MEDS: INSULIN ASPART (*BKC) 100 UNITS/ML SUB-Q (12:25)
--- NOTE | 2022-02-18 14:11 | HOMEO2EVAL ---
Evaluation was performed at [facility] Home Oxygen Evaluation RC: Home Oxygen (O2) Evaluation Start: 02/18/22 11:29 Freq: ONCE Status: Active Protocol: RPE Activity Type Activity Date Activity User E-sign Co-sign Detail Recorded Client Recorded Date Recorded By Document 02/18/22 14:00 KRM [id number] 02/18/22 14:11 KRM 02/18/22 14:00 Home O2 Evaluation [Oxygen] -Test Phase Resting -Oxygen Delivery Room Air [Pulse Oximetry] -Pulse Oximetry (90-100 %) 96 [Pulse Rate] -Pulse Rate (60-100 beats/min) 91 [Comments] -Home Oxygen Evaluation Comments PT. WOULD NOT AMBULATE. RN AWARE. [Charges] -Treatment Charges O2 Evaluation - Inpatient
--- NOTE | 2022-02-18 15:35 | PM.DS ---
DS: Admitting Diagnosis Discharge Date 02/18/2022 Admitting Diagnosis Right arm pain after fall DS: Discharge Diagnosis Discharge Diagnosis (1) Acute hypoxemic respiratory failure: Code(s): J96.01 - Acute respiratory failure with hypoxia Status: Acute Assessment and Plan: acute hypoxemic respiratory failure probably related to pulmonary edema multifactorial secondary to IV fluid and possible ACS cardiology was notified aspirin was given patient was started on BiPAP chest pain completely resolved now with pending final cardiology recommendation hypercapnic respiratory failure started on BiPAP repeat ABG in 1 hour consider pulmonology evaluation for BiPAP management 02/17/2022 interval history: patient was clinically stable upon arrival then went to hypoxia and went into exacerbation of CHF, patient was started on IV Lasix and place on BIPAP, patient also found to have elevated trops, patient was seen by cardiology recommended cardiac catheterization to further evaluate, however patient refused to be treated and does not want any invasive procedure, to further evaluate patient had stress test showing fixed defect and EF of 40%, will continue to monitor and further recommendation to follow, patient was seen by welder gas tungsten arc as patient is fount to have aortic stenosis, Patient with A.Fib was treated with Lovenox 80 qd as patient has RONAK, today welder gas tungsten arc stopped Lovenox and started patient on Eliquis 2.5mg BID and continued plavix, patient will follow up upon discharge with the welder gas tungsten arc, patient also has a fracture of right humerus orthopedic surgeon recommending conservative management with sling and pain control. today patient son is present in the room, discussed and answer all his questions, patient will benefit going to SNF rehab before going as patient will need help with his ADLs. (2) NSTEMI (non-ST elevated myocardial infarction): Code(s): I21.4 - Non-ST elevation (NSTEMI) myocardial infarction Status: Acute Assessment and Plan: patient was seen by Cardiology recommended cardiac catheterization however patient refused (3) Closed fracture of surgical neck of humerus: Code(s): S42.213A - Unspecified displaced fracture of surgical neck of unspecified humerus, initial encounter for closed fracture Status: Acute Assessment and Plan: orthopedic recommending conservative management with sling no surgical intervention needed (4) Anemia: Code(s): D64.9 - Anemia, unspecified Status: Acute Assessment and Plan: 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 DS: Summary Hospital Course Reason for hospitalization: Chief Complaint: Right arm pain after fall Narrative: This is a 81-year-old male patient with a history of hypertension, diabetes, chronic kidney disease and hyperlipidemia.? The patient stated that he was coming up basement steps and he got to the very top 14.? When he felt dizzy and felt like he was going to pass out the patient stated he had a choice of falling backwards her leading for it and falling into the wall.? Patient stated that he fell into the wall and bruise of his right arm.? He had significant amount of bruising and pain to the right arm.? The patient had no head injury and did not lose consciousness.? The patient stated it has been harder and harder for him to get up the steps and then when he came up the steps he becomes very short of breath and feels like he is going to pass out.? The patient stated he did not hit his head or lose consciousness.? He denied any chest pain.? The patient's H&H is 9.4 and 28.9.? His creatinine was found to be 2.12.? His baseline is anyw
== END 2022-02-18 16:55 | disposition home health service (06) | DRG 280 ==
LOC: ANHIMU 02-17 12:57 → ANH3MEDSUR 02-17 13:20
PROVIDERS: Internal Medicine; Nurse Practitioner; Admitting Provider Student in an Organized Health Care Education/Training Program; PCP Family Medicine; Visit Provider Family Medicine
DX: I13.0 Hypertensive heart and chronic kidney disease with heart failure and stage 1 through stage 4 chronic kidney disease, or unspecified chronic kidney disease (principal); I50.21 Acute systolic (congestive) heart failure; I21.4 Non-ST elevation (NSTEMI) myocardial infarction; J96.01 Acute respiratory failure with hypoxia; J96.92 Respiratory failure, unspecified with hypercapnia; S42.211A Unspecified displaced fracture of surgical neck of right humerus, initial encounter for closed fracture; N17.9 Acute kidney failure, unspecified; E86.0 Dehydration; T17.328A Food in larynx causing other injury, initial encounter; N18.30 Chronic kidney disease, stage 3 unspecified; D63.1 Anemia in chronic kidney disease; E11.22 Type 2 diabetes mellitus with diabetic chronic kidney disease; E78.5 Hyperlipidemia, unspecified; G89.29 Other chronic pain; H40.9 Unspecified glaucoma; I48.91 Unspecified atrial fibrillation; I25.10 Atherosclerotic heart disease of native coronary artery without angina pectoris; I35.0 Nonrheumatic aortic (valve) stenosis; I25.2 Old myocardial infarction; K21.9 Gastro-esophageal reflux disease without esophagitis; M19.90 Unspecified osteoarthritis, unspecified site; M81.0 Age-related osteoporosis without current pathological fracture; M54.50 Low back pain, unspecified; W10.9XXA Fall (on) (from) unspecified stairs and steps, initial encounter; Z98.49 Cataract extraction status, unspecified eye; Z96.82 Presence of neurostimulator; Z87.891 Personal history of nicotine dependence; Z28.21 Immunization not carried out because of patient refusal
CPT/HCPCS: 36415; 36600; 71045; 78452; 80048; 80053; 82375; 82550; 82805; 82948; 83036; 83050; 83605; 83735; 84443; 84484; 85025; 85027; 85380; 85610; 85730; 92507; 92526; 92610; 92611; 93005; 93017; 93306; 93970; 94002; 94003; 94618; 94640; 96374; 96375; 97110; 97116; 97161; 97166; 97530; A9270; A9502; C8929; G0378; G0379; J1650; J1815; J1940; J2785; J2930; Q9957

== ENCOUNTER 2022-02-27 01:00 | Inpatient (IN) | payer MEDICARE, OTHER, SELFPAY ==
[2022-02-27] VITALS (36 sets, daily range): BP systolic 90–132; BP diastolic 44–79; PULSE 62–100; RESP 12–34; TEMP 35.9–37.2; O2SAT 95–100; BMI 22.8
--- NOTE | ~2022-02-27 | XR_ITS ---
EXAMINATION: XR chest 1V portable DATE: 02/27/2022 05:26 INDICATION: Chest pain. Change in condition. TECHNIQUE: A single frontal view of the chest was obtained. COMPARISON: Chest single view at 1:48 AM FINDINGS: Again seen is a diffuse interstitial pattern in the lungs, consistent with mild pulmonary e [place]. No pleural effusion or pneumothorax. The heart size is normal. Electrodes overlie thoracic spin e. Again seen is a comminuted fracture of right proximal humerus. IMPRESSION: 1. Mild pulmonary edema. Reviewed, dictated and finalized at location A. IMPRESSION: 1. Mild pulmonary edema.
--- NOTE | ~2022-02-27 | XR_ITS ---
EXAMINATION: XR chest 1V portable DATE: 02/27/2022 01:53 INDICATION: Chest pain. TECHNIQUE: A single frontal view of the chest was obtained. COMPARISON: Chest single view 02/15/2022 FINDINGS: There is a diffuse interstitial pattern, consistent with mild pulmonary edema. No pleural e ffusion or pneumothorax. The heart size is normal. Epidural electrodes overlie the spine. IMPRESSION: 1. Mild pulmonary edema. Reviewed, dictated and finalized at location A. IMPRESSION: 1. Mild pulmonary edema.
--- NOTE | 2022-02-27 01:10 | ECG_ITS ---
Measurements Intervals [place] Rate: 88 P: 82 [place]: 229 QRS: 58 QRSD: 101 T: 182 QT: 377 QTc: 458 Interpretive Statements SINUS RHYTHM WITH FIRST DEGREE AV BLOCK ST DEVIATION AND MODERATE T-WAVE ABNORMALITY, CONSIDER LATERAL ISCHEMIA [-0.1+ mV T WAVE IN I/aVL/V5/V6] COMPARED TO ECG 02/16/2022 01:03:35 SINUS RHYTHM NOW PRESENT T-WAVE INVERSIONS IN LEADS LATERAL LEADS NOW PRESENT Electronically Signed On 02-27-2022 13:10:10 CDT by Sofi Elliott M.D.
[2022-02-27 01:27] LABS: Basophils Percent Auto 0.2 % (0.2-1.2); Eosinophils Absolute Auto 0.1 K/mm3 (0-0.3); Eosinophils Percent Auto 1.2 % (0-4.4); Immature Granulocyte Absolute 0.08 K/mm3 (0.00-0.031); Immature Granulocyte Percent A 0.8 % (0-0.5); Lymphocytes Absolute Auto 0.76 K/mm3 (0.9-3.2); Lymphocytes Percent Auto 7.8 % (18.3-44.2); Mean Corpuscular HGB Conc 31.6 g/dl (32-36); Mean Corpuscular Hemoglobin 32.7 pg (26-34); Mean Corpuscular Volume 103.6 fl (80-100); Mean Platelet Volume 10.2 fl (7.4-10.4); Monocytes Absolute Auto 0.4 K/mm3 (0.1-0.6); Monocytes Percent Auto 3.6 % (2.6-8.5); Neutrophils Absolute Auto 8.4 K/mm3 (1.3-6.7); Neutrophils Percent Auto 86.4 % (45.5-73.1); Platelet Count Result 353 k/mm3 (150-375); Red Blood Count 1.68 M/mm3 (4.6-6.20); White Blood Count 9.7 K/mm3 (4.5-10.0)
[2022-02-27 01:33] LABS: Hemoglobin 5.5 g/dL (14.0-18.0)
[2022-02-27 01:34] LABS: Hematocrit 17.4 % (42.0-52.0)
[2022-02-27 01:38] LABS: Alanine Aminotransferase 24 U/L (6-50); Albumin Level 3.1 g/dL (3.5-5.1); Alkaline Phosphatase 98 U/L (38-126); Anion Gap 13 mmol/L (8-16); Aspartate Amino Transferase 27 U/L (17-59); Bilirubin,Total 0.9 mg/dL (0.2-1.3); Blood Urea Nitrogen 68 mg/dL (9-20); Carbon Dioxide 22 mmol/L (22-30); Chloride 98 mmol/L (98-107); Estimated CRCL calculation 24 ml/min; Estimated Glomerular Filt Rate 29; Glucose 189 mg/dL (65-110); Lipase 157 U/L (23-300); Potassium 3.3 mmol/L (3.4-5.0); Sodium 133 mmol/L (137-145)
[2022-02-27 01:40] LABS: INR 1.3; Prothrombin Time 15.4 Seconds (11.1-14.7)
[2022-02-27 01:41] LABS: Partial Thromboplastin Time 27.3 SECONDS (22.3-36.8)
[2022-02-27 01:55] LABS: Troponin I 0.177 ng/mL (0.000-0.034)
--- NOTE | 2022-02-27 02:06 | ED.GENADULT ---
HPI - General Adult General Chief complaint: Chest Pain Stated complaint: CP; CCL SCHEDULED THIS AM Time Seen by Provider: 02/27/22 01:10 History of Present Illness HPI narrative: Patient is a 81-year-old gentleman who presents the emergency department with chief complaint of chest pain and shortness of breath. Patient reports that he was recently in the hospital had a arm fracture and also was scheduled for an outpatient cardiac catheterization. Patient states that he is scheduled actually for this morning patient states that he has been feeling short of breath and reports that tonight he had chest pain. Patient reports that he just does not feel like he can get a good deep breath reports that it was improved with nitroglycerin given to him by EMS. The patient also was given 325 mg of aspirin prior to arrival. The patient did report that he has been having some black stool for the last several days. Related Data Home Medications Medication Instructions Recorded Confirmed latanoprost 0.005 % eye drops 1 drp EACH EYE DAILY 06/29/20 02/26/22 amlodipine 10 mg tablet 10 mg PO DAILY 02/26/22 02/26/22 Allergies Allergy/AdvReac Type Severity Reaction Status Date / Time No Known Allergies Allergy Verified 02/27/22 01:26 Review of Systems Review of Systems: A 10 system review of systems was completed on the patient and is negative except for what is stated in the HPI. Nursing and ancillary documentation was reviewed. [facility] Past Medical History Medical History Anemia CKD (chronic kidney disease) stage 3, GFR 30-59 ml/min DM2 (diabetes mellitus, type 2) GERD (gastroesophageal reflux disease) Glaucoma Humerus fracture Hyperlipidemia Hypertension Osteoarthritis Surgical History Surgical History History of back surgery History of cataract extraction He has had back surgeries plus the neurostimulator History of removal of pigmented skin lesion From his left forehead which was actinic keratosis Family History Family History Mother Tuberculosis Father Alcoholism Sibling Lung disease Social History Social History Social History: The patient is and lives with his . He has 2 children. He is retired from the [employer]. 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 The patient is a former smoker and denies any alcohol marijuana or illicit drugs. Code status DNR Smoking packs per day: 2 Smoking cigarettes per day: 40.0 Years smoked: 45 Smoking pack-years: 90.00 Smoking status: Former smoker Second hand tobacco smoke exposure: Yes Additional smoking assessment comments: 1989 Alcohol intake: former Drinks per week: 2 Substance use: never Additional living arrangements comments: . Spiritual care concerns: No Has the Lack of Transportation Kept You From Medical Appointments or From Getting Medications?: No Within the Past 12 Months, Were You Worried Whether Your Food Would Run Out Before You Got Money to Buy More?: Never True What is Your Housing Situation Today?: I Have Housing Are You Worried That in the Next 2 Months, You May Not Have Your Own Housing to Live In?: No Do You Have Trouble Paying Your Heating Or Electricity Bill?: No Do You Have Trouble Paying For Medicines?: No Are You Currently Unemployed and Looking for Work?: No Highest Level of Education Completed: Decline to Answer Do You Have Trouble With Childcare or the Care of a Family Member?: No Exam Narrative: GENERAL: Well-appearing, well-nourished, and in no acute distress. HEAD: Normocephalic, atraumatic. EYES: PERRLA and EOMI. ENT: Nares clear, no rhinorrhea or epistax
--- NOTE | 2022-02-27 02:14 | PM.IMHP ---
H&P: HPI History of Present Illness Date/Time: 02/27/22 02:14 Chief Complaint: Melena Narrative: This is an 81-year-old male with past medical history significant for chronic kidney disease, type 2 diabetes mellitus, gastroesophageal reflux disease, dyslipidemia, hypertension, patient recently discharged from [facility] he had been transfer from [facility] emergency room he presented there and was found to have a non ST segment elevation MD a right humeral fracture further workup showed anteroseptal hypokinesis and moderate to severe aortic stenosis patient was supposed to follow-up in the outpatient setting aunt left heart catheterization however he presented today to the emergency room after he had several episodes of melena, poor appetite, this has happened in the last 2 days or so has been having shortness of breath, chest pain, felt dizzy, denies any hematemesis or coffee-ground emesis or bright red blood per rectum. Preliminary workup was significant for hemoglobin of 5 hematocrit of 19. patient is been admitted for further evaluation management and treatment. Review of Systems Review of Systems: Patient presents to the emergency room due to lightheadedness, melena, chest discomfort, palpitations, poor appetite for the last 2 days or so Constitutional: Constitutional: Denies chills, Reports lethargy, Denies malaise, Reports poor appetite and Reports weakness Eyes: Eyes: Denies change in vision ENT: Denies dysphagia, Denies vertigo, Reports dizziness and Denies odynophagia Cardiovascular: Cardiovascular: Reports chest pain, Reports lightheadedness and Reports dyspnea Respiratory: Respiratory: Denies chest congestion and Denies cough Gastrointestinal: Gastrointestinal: Denies abdominal pain, Reports melena, Denies hematochezia, Denies coffee ground emesis, Denies dyspepsia, Denies heartburn, Denies diarrhea, Denies nausea and Denies vomiting Genitourinary: Genitourinary: Denies dysuria Musculoskeletal: Musculoskeletal: Reports other ( right humerus fracture healing) Integumentary/Breasts: Skin/Breast: Denies rash Neurologic: Denies vertigo, Denies dizziness, Denies focal weakness and Denies Sensory deficit (Neuro) Psychiatric: Psychiatric: Reports no additional psychiatric complaints and Reports as per HPI Endocrine: Endocrine: Denies cold intolerance, Denies flushing, Denies heat intolerance, Denies polyphagia, Denies polydipsia and Denies palpitations Hematologic/Lymphatic: Hematologic/Lymphatic: Reports no additional hematologic/lymphatic complaints and Reports as per HPI Allergic/Immunologic: Allergic/Immunologic: Reports no additional allergic/immunologic complaints and Reports as per HPI PMFSH Past Medical History Medical History Anemia CKD (chronic kidney disease) stage 3, GFR 30-59 ml/min DM2 (diabetes mellitus, type 2) GERD (gastroesophageal reflux disease) Glaucoma Humerus fracture Hyperlipidemia Hypertension Osteoarthritis Surgical History Surgical History History of back surgery History of cataract extraction He has had back surgeries plus the neurostimulator History of removal of pigmented skin lesion From his left forehead which was actinic keratosis Family History Family History Mother Tuberculosis Father Alcoholism Sibling Lung disease Social History Social History Social History: The patient is and lives with his . He has 2 children. He is retired from the [employer]. 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 His is the durable power collections attorney for healthcare. The patient is a former smoker and denies any alcohol marijuana or illicit drugs. Code status DNR Smoking packs per day: 2 Smoking ciga
[2022-02-27] MEDS: MORPHINE SULFATE (*CRX) 4 MG/ML INJ IV PUSH (02:51)
[2022-02-27 02:56] LABS: Hematocrit 16.5 % (42.0-52.0); Hemoglobin 5.3 g/dL (14.0-18.0)
[2022-02-27] MEDS: SODIUM CHLORIDE 0.9% IV 1,000 ML 125 ML IV CONT (03:14)
--- NOTE | 2022-02-27 03:48 | ADMGEN ---
This patient, Villa Rush, was admitted to IMU Room 211-01 at 0348. Patient/family oriented to hospital policies and general routines including ID bracelet, bed and alarms, visiting hours, pain management, procedures, bathroom and other care routines, personal items, smoking policy, room service/diet, and visiting hours. Information on how to activate the Rapid Response Team has been discussed. Patient/Family are encouraged to report perceived risks to care and to ask questions if they do not understand what they are told or what they should do.
--- NOTE | 2022-02-27 05:36 | PC.NURSE ---
PATIENT BLOOD STARTED AROUND 0420. CALLED INTO ROOM AT 0511, PATIENT HAVING DIFFICULTY BREATHING, PALE, DIAPHORETIC, USE OF ACCESSORY MUSCLES,LABORED, RESTLESS. CALLED FOR ASSISTANCE. PATIENT WAS GIVEN 40 IV LASIX, ARAGON CATHETER PLACED AND CHEST X-RAY DONE. PATIENT PLACED ON BIPAP. BLOOD IS TO BE CONTINUES BUT AT A MUCH SLOWER RATE. IT WAS ONLY GOING AT 75 ML/HR PRIOR TO THIS HAPPENING. PATIENTS O2 SAT WAS 85 ON 2LNC, INCREASED UP TO 6LNC, O2 SAT 94 ON 6LNC. PATIENT WAS STILL IN DISTRESS. THEN STARTED ON BIPAP. PATIENT IS STILL STRUGGLING. WILL CONTINUE TO MONITOR.
[2022-02-27] MEDS: MORPHINE SULFATE (*CRX) 2 MG/ML INJ 1 MG IV PUSH (05:47)
[2022-02-27] MEDS: FUROSEMIDE INJ 40 MG/4 ML VIAL IV PUSH (05:48)
[2022-02-27] MEDS: LATANOPROST 0.005% OP SOLN 2.5 ML BTL 1 DROP EACH EYE (09:11)
[2022-02-27] MEDS: TUBING, BLOOD PLUM PUMP TUBING 1 EACH XX (09:15)
[2022-02-27] MEDS: PANTOPRAZOLE SODIUM IV 40 MG VIAL IV PUSH ×2 (09:31→20:50)
[2022-02-27] MEDS: FUROSEMIDE INJ 40 MG/4 ML VIAL 20 MG IV PUSH (10:02)
--- NOTE | 2022-02-27 11:09 | PM.CNCAR ---
Assessment and Plan Assessment and plan (1) Acute GI bleeding: Code(s): K92.2 - Gastrointestinal hemorrhage, unspecified Status: Acute Assessment and Plan: GI consulted. Given significant symptomatic anemia, will not be performing his elective cardiac cath today. Defer any invasive cardiac procedures for now. Agree with holding Eliquis and Plavix (2) Elevated troponin: Code(s): R77.8 - Other specified abnormalities of plasma proteins Status: Acute Assessment and Plan: No signs or symptoms of ACS. Likely due to significant anemia. (3) Left ventricular systolic dysfunction: Code(s): I51.9 - Heart disease, unspecified Status: Acute Assessment and Plan: Mildly reduced LVEF on recent echo. Is compensated on exam today. (4) Atrial fibrillation: Code(s): I48.91 - Unspecified atrial fibrillation Status: Acute Assessment and Plan: Monitor on tele History of Present Illness History of Present Illness Consult date/time: 02/27/22 11:09 Requesting physician: Fuad Webster MD Consult reason: known to you, shortness of breath and Other (Elevated troponin) Reason For Visit: GI Bleed,Anemia,Elevated Troponin Narrative: Patient is an 81-year-old male who is well known to me from recent hospitalization. We are being consulted for elevated troponin. Patient was actually scheduled to have elective coronary angiogram with me today as an outpatient. Patient was recently discharged from here on 02/18. Last admission, patient was initially transferred from [facility] for management of right humeral fracture following a fall and found with elevated troponin. Patient was found by noninvasive evaluation to have some left ventricular systolic dysfunction, nuclear stress test with evidence of a previous anteroapical infarction as well as moderate-severe aortic valve stenosis. I had offered cardiac cath last admission, however, patient did not want to undergo invasive procedures at that time. However, after discharge, patient changed his mind and was scheduled for elective coronary angio with me today. Last admission patient found with new diagnosis of atrial fibrillation - we started Coreg and Eliquis. Started on Plavix for NSTEMI. ASA was discontinued to avoid triple therapy. Patient states since discharge he was doing okay without any cardiac symptoms, however, yesterday he had some shortness of breath and felt ill overall. Has been having melena as well. Hgb was at 5.5, with repeat confirmed at 5.3. Patient admitted for GI bleed. His cardiac meds have been on hold, as appropriate. Patient seen and examined at bedside this AM while receiving blood transfusion. Patient denies any chest pain. States he is feeling much better since starting blood transfusion. GI consult pending. Review of Systems Constitutional: Constitutional: Denies body ache(s), Denies chills, Reports fatigue and Reports weakness Eyes: Eyes: Denies no additional eye complaints ENT: Denies dysphagia and Denies epistaxis Cardiovascular: Cardiovascular: Reports no additional cardiovascular complaints Respiratory: Respiratory: Reports no additional respiratory complaints Gastrointestinal: Comments: Melena Musculoskeletal: Musculoskeletal: Reports no additional musculoskeletal complaints Integumentary/Breasts: Skin/Breast: Reports system reviewed and no additional complaints, except as docu Neurologic: Reports system reviewed and no additional complaints, except as documented Hematologic/Lymphatic: Hematologic/Lymphatic: Reports as per HPI [facility] Past Medical History Medical History (Updated 02/27/22 @ 11:19 by Sofi Elliott MD) Anemia Atrial fibrillation CKD (chronic kidney disease) stage 3, GFR 30-59 ml/min DM2 (diabetes mellitus, type 2) GERD (gastroesophageal reflux disease) Glaucoma Humerus fracture Hyperlipidemia Hypertension Osteoarthritis Surgical History Surgical Histo
[2022-02-27 12:47] LABS: Troponin I 0.267 ng/mL (0.000-0.034)
[2022-02-27 12:49] LABS: Anion Gap 16 mmol/L (8-16); Blood Urea Nitrogen 73 mg/dL (9-20); Calcium 7.9 mg/dL (8.4-10.2); Carbon Dioxide 24 mmol/L (22-30); Chloride 98 mmol/L (98-107); Estimated CRCL calculation 23 ml/min; Estimated Glomerular Filt Rate 27; Glucose 132 mg/dL (65-110); Potassium 3.6 mmol/L (3.4-5.0); Sodium 138 mmol/L (137-145)
--- NOTE | 2022-02-27 13:00 | WPDGICN ---
Assessment and Plan Assessment and plan (1) Acute GI bleeding: Code(s): K92.2 - Gastrointestinal hemorrhage, unspecified Status: Acute Assessment and Plan: will proceed with urgent egd to find source of bleeding on iv protonix and received blood transfusion (2) Melena: Code(s): K92.1 - Melena Status: Acute Assessment and Plan: urgent egd monitor h/h (3) Elevated troponin: Code(s): R77.8 - Other specified abnormalities of plasma proteins Status: Acute Assessment and Plan: cardiology on board (4) Acute blood loss anemia: Code(s): D62 - Acute posthemorrhagic anemia Status: Acute Assessment and Plan: s/p blood transfusion keep hb>7 monitor for more signs of bleeding on iv protonix holding blood thinner (5) Atrial fibrillation: Code(s): I48.91 - Unspecified atrial fibrillation Status: Acute (6) NSTEMI (non-ST elevated myocardial infarction): Code(s): I21.4 - Non-ST elevation (NSTEMI) myocardial infarction Status: Acute Assessment and Plan: by cardiology can not use blood thinners now in setting of acute gib GI Consult Note Consult date/time: 02/27/22 13:00 Reason for consult: melena, acute blood loss anemia HPI: Villa Rush is a 81 year old male with recent hospitalization because right humeral fracture following a fall and found with elevated troponin. Patient was found by noninvasive evaluation to have left ventricular systolic dysfunction, nuclear stress test with evidence of a previous anteroapical infarction as well as moderate-severe aortic valve stenosis. He just left hospital few days ago and actually he was supposed to follow-up today for outpatient cardiac cath. Last 2 days noted new onset of dark tarry stool and yesterday with shortness of breath, chest pain, felt dizzy finally came to ER. He was found to have anemia with hb 5 and received blood transfusion now doing much better. Denies hematemesis, denies using nsaid's but he was discharged on eliquis. Had egd and colonoscopy over 5 years ago. Review of Systems Constitutional: Constitutional: Denies body ache(s), Denies chills, Reports fatigue and Reports weakness Eyes: Eyes: Denies no additional eye complaints ENT: Denies dysphagia and Denies epistaxis Cardiovascular: Cardiovascular: Reports no additional cardiovascular complaints Respiratory: Respiratory: Reports no additional respiratory complaints Gastrointestinal: Comments: Melena Musculoskeletal: Musculoskeletal: Reports no additional musculoskeletal complaints Integumentary/Breasts: Skin/Breast: Reports system reviewed and no additional complaints, except as docu Neurologic: Reports system reviewed and no additional complaints, except as documented Hematologic/Lymphatic: Hematologic/Lymphatic: Reports as per HPI REPLACED BY [facility] Past Medical History Medical History (Updated 02/27/22 @ 15:42 by Omkar Lizama MD) Acute blood loss anemia Anemia Atrial fibrillation CKD (chronic kidney disease) stage 3, GFR 30-59 ml/min DM2 (diabetes mellitus, type 2) GERD (gastroesophageal reflux disease) Glaucoma Humerus fracture Hyperlipidemia Hypertension Melena Osteoarthritis Surgical History Surgical History History of back surgery History of cataract extraction He has had back surgeries plus the neurostimulator History of removal of pigmented skin lesion From his left forehead which was actinic keratosis Family History Family History Mother Tuberculosis Father Alcoholism Sibling Lung disease Social History Social History Social History: The patient is and lives with his . He has 2 children. He is retired from the [employer]. 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 His is the
[2022-02-27 13:34] LABS: Magnesium 2.2 mg/dL (1.6-2.3)
[2022-02-27] MEDS: LACTATED RINGERS 1,000 ML 150 ML IV CONT (13:50)
--- NOTE | 2022-02-27 13:51 | WPDANESEPPF ---
Anes - Initial Pre Proc Eval Procedure: Operation Date: 02/27/22 15:30 Proposed Procedures p Esophagogastroduodenoscopy - Omkar Lizama MD Date/Time: 02/27/22 13:51 Surgeon: Fuad Webster MD Pre Op Diagnosis: GI Bleed,Anemia,Elevated Troponin Patient Data Age: 81 Gender: M Height: 1.75 m Weight: 70 kg Last Vital Signs Temp 97.5 F L 02/27/22 13:44 Pulse 79 02/27/22 13:44 Resp 20 02/27/22 13:44 BP 117/44 L 02/27/22 13:44 Pulse Ox 97 02/27/22 13:44 O2 Del Method Room Air 02/27/22 13:44 O2 Flow Rate 3 02/27/22 09:15 FiO2 40 02/27/22 08:32 Allergies Allergy/AdvReac Type Severity Reaction Status Date / Time No Known Allergies Allergy Verified 02/27/22 13:42 Home Medications Medication Instructions Recorded Confirmed Type latanoprost 0.005 % eye drops 1 drp EACH EYE DAILY 06/29/20 02/27/22 History acetaminophen 500 mg tablet 500 mg PO TID PRN pain #90 tabs 02/22/22 02/27/22 Rx alendronate 70 mg tablet 70 mg PO WEEKLY #4 tabs 02/22/22 02/27/22 Rx apixaban 2.5 mg tablet (Eliquis) 2.5 mg PO Q12HR #60 tabs 02/22/22 02/27/22 Rx atorvastatin 40 mg tablet 40 mg PO DAILY #30 tabs 02/22/22 02/27/22 Rx carvedilol 6.25 mg tablet (Coreg) 6.25 mg PO Q12HR #60 tabs 02/22/22 02/27/22 Rx chlorthalidone 25 mg tablet 25 mg PO EVERY OTHER DAY #15 tabs 02/22/22 02/27/22 Rx cholecalciferol (vitamin D3) 25 1,000 unit PO DAILY #30 caps 02/22/22 02/27/22 Rx mcg (1,000 unit) capsule (Vitamin D3) clopidogrel 75 mg tablet 75 mg PO QAM #30 tabs 02/22/22 02/27/22 Rx gabapentin 300 mg capsule 300 mg PO TID #90 caps 02/22/22 02/27/22 Rx lidocaine 5 % topical patch 1 patch topical DAILY #30 ea 02/22/22 02/27/22 Rx omeprazole 40 mg capsule,delayed 40 mg PO DAILY #30 caps 02/22/22 02/27/22 Rx release terazosin 5 mg capsule 5 mg PO DAILY #30 caps 02/22/22 02/27/22 Rx amlodipine 10 mg tablet 10 mg PO DAILY 02/26/22 02/27/22 History Laboratory Tests 02/27/22 02/27/22 02/27/22 01:21 01:21 01:21 WBC 9.7 K/mm3 K/mm3 (4.5-10.0) RBC 1.68 M/mm3 L M/mm3 (4.6-6.20) Hgb 5.5 g/dL L* g/dL (14.0-18.0) Hct 17.4 % L* % (42.0-52.0) MCV 103.6 fl H fl (80-100) MCH 32.7 pg pg (26-34) MCHC 31.6 g/dl L g/dl (32-36) RDW 15.0 % H % (11.5-14.5) Plt Count 353 k/mm3 k/mm3 (150-375) MPV 10.2 fl fl (7.4-10.4) Immature Gran % (Auto) 0.8 % H % (0-0.5) Neut % (Auto) 86.4 % H % (45.5-73.1) Lymph % (Auto) 7.8 % L % (18.3-44.2) Hickman % (Auto) 3.6 % % (2.6-8.5) Eos % (Auto) 1.2 % % (0-4.4) Baso % (Auto) 0.2 % % (0.2-1.2) Lymph # (Auto) 0.76 K/mm3 L K/mm3 (0.9-3.2) Hickman # (Auto) 0.4 K/mm3 K/mm3 (0.1-0.6) Eos # (Auto) 0.1 K/mm3 K/mm3 (0-0.3) Baso # (Auto) 0.0 K/mm3 K/mm3 (0.0-0.1) Abs Immat Gran (auto) 0.08 K/mm3 H K/mm3 (0.00-0.031) Absolute Neuts (auto) 8.4 K/mm3 H K/mm3 (1.3-6.7) Absolute Nucleated RBC 0.0 K/mm3 K/mm3 (0.0-0.012) Nucleated RBC % 0.0 % % (0.0-0.2) PT 15.4 Seconds H Seconds (11.1-14.7) INR 1.3 APTT 27.3 SECONDS SECONDS (22.3-36.8) Sodium 133 mmol/L L mmol/L (137-145) Potassium 3.3 mmol/L L mmol/L (3.4-5.0) Chloride 98 mmol/L mmol/L (98-107) Carbon Dioxide 22 mmol/L mmol/L (22-30) Anion Gap 13 mmol/L mmol/L (8-16) BUN 68 mg/dL H mg/dL (9-20) Creatinine 2.20 mg/dL H mg/dL (0.7-1.3) Estim Creat Clear Calc 24 ml/min ml/min Estimated GFR 29 L (59 - ) Glucose 189 mg/dL H mg/dL (65-110) Calcium 8.0 mg/dL L mg/dL (8.4-10.2) Magnesium Total Bilirubin 0.9 mg/dL mg/dL (0.2-1.3) AST 27 U/L U/L (17-59) ALT 24 U/L U/L (6
[2022-02-27 13:56] LABS: Glucose Point of Care 117 mg/dl (65-105)
--- NOTE | 2022-02-27 14:20 | PM.HPGS ---
History of Present Illness History of Present Illness Consent: Risks, benefits, and alternatives have been discussed and questions answered. Patient agrees to proceed with procedure. Chief complaint: GI Bleed,Anemia,Elevated Troponin Narrative: Villa Rush is a 81 year old male with recent hospitalization because right humeral fracture following a fall and found with elevated troponin. Patient was found by noninvasive evaluation to have left ventricular systolic dysfunction, nuclear stress test with evidence of a previous anteroapical infarction as well as moderate-severe aortic valve stenosis and actually he was supposed to follow-up today for outpatient cardiac cath. Had egd and colonoscopy over 5 years ago [facility] Past Medical History Medical History (Updated 02/27/22 @ 11:19 by Sofi Elliott MD) Anemia Atrial fibrillation CKD (chronic kidney disease) stage 3, GFR 30-59 ml/min DM2 (diabetes mellitus, type 2) GERD (gastroesophageal reflux disease) Glaucoma Humerus fracture Hyperlipidemia Hypertension Osteoarthritis Surgical History Surgical History History of back surgery History of cataract extraction He has had back surgeries plus the neurostimulator History of removal of pigmented skin lesion From his left forehead which was actinic keratosis Family History Family History Mother Tuberculosis Father Alcoholism Sibling Lung disease Social History Social History Social History: The patient is and lives with his . He has 2 children. He is retired from the [employer]. 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 His is the durable power contracts attorney for healthcare. The patient is a former smoker and denies any alcohol marijuana or illicit drugs. Code status DNR Smoking packs per day: 2 Smoking cigarettes per day: 40.0 Years smoked: 45 Smoking pack-years: 90.00 Smoking status: Former smoker Second hand tobacco smoke exposure: Yes Additional smoking assessment comments: 1989 Alcohol intake: former Drinks per week: 2 Substance use: never Additional living arrangements comments: . Spiritual care concerns: No Has the Lack of Transportation Kept You From Medical Appointments or From Getting Medications?: No Within the Past 12 Months, Were You Worried Whether Your Food Would Run Out Before You Got Money to Buy More?: Never True What is Your Housing Situation Today?: I Have Housing Are You Worried That in the Next 2 Months, You May Not Have Your Own Housing to Live In?: No Do You Have Trouble Paying Your Heating Or Electricity Bill?: No Do You Have Trouble Paying For Medicines?: No Are You Currently Unemployed and Looking for Work?: No Highest Level of Education Completed: Decline to Answer Do You Have Trouble With Childcare or the Care of a Family Member?: No Meds Home Medications and Allergies Home Medications Medication Instructions Recorded Confirmed Type latanoprost 0.005 % eye drops 1 drp EACH EYE DAILY 06/29/20 02/27/22 History acetaminophen 500 mg tablet 500 mg PO TID PRN pain #90 tabs 02/22/22 02/27/22 Rx alendronate 70 mg tablet 70 mg PO WEEKLY #4 tabs 02/22/22 02/27/22 Rx apixaban 2.5 mg tablet (Eliquis) 2.5 mg PO Q12HR #60 tabs 02/22/22 02/27/22 Rx atorvastatin 40 mg tablet 40 mg PO DAILY #30 tabs 02/22/22 02/27/22 Rx carvedilol 6.25 mg tablet (Coreg) 6.25 mg PO Q12HR #60 tabs 02/22/22 02/27/22 Rx chlorthalidone 25 mg tablet 25 mg PO EVERY OTHER DAY #15 tabs 02/22/22 02/27/22 Rx cholecalciferol (vitamin D3) 25 1,000 unit PO DAILY #30 caps 02/22/22 02/27/22 Rx mcg (1,000 unit) capsule (Vitamin D3) clopidogrel 75 mg tablet 75 mg PO QAM #30 tabs 02/22/22 02/27/22 Rx gabapentin 300 mg capsule 300 mg PO TID #90 caps 02/22/22 02/27/22 Rx lidocaine 5 % topical patch
[2022-02-27 15:12] LABS: Glucose Point of Care 120 mg/dl (65-105)
[2022-02-27 15:46] LABS: Hematocrit 22.6 % (42.0-52.0); Hemoglobin 7.2 g/dL (14.0-18.0)
[2022-02-27] MEDS: POTASSIUM CHLORIDE INJ 40 MEQ in SODIUM CHLORIDE 0.9% IV 500 ML 130 MEQ IVPB (16:00)
[2022-02-27] MEDS: POTASSIUM CHLORIDE 20 MEQ PACKET (FOR LIQUID) 40 MEQ PO (16:00)
--- NOTE | 2022-02-27 16:12 | PC.NURSE ---
On 02/27/22, the student, Anil [facility], provided care and completed [facility] documentation on this patient. I have reviewed the student's documentation and agree with the findings.
--- NOTE | 2022-02-27 17:12 | PM.IMPN ---
Progress Note: A&P Assessment and Plan (1) Acute GI bleeding: Code(s): K92.2 - Gastrointestinal hemorrhage, unspecified Status: Acute Assessment and Plan: c/o melena x2 days prior to admission and Hgb 5.3 on admission. Transfusion 2 units PRBC and trend H/H. Consult GI Protonix 40 mg IV BID. Hold plavix and Eliquis Transfuse as needed to keep Hgb 9-10 given cardiac disease. (2) Elevated troponin: Code(s): R77.8 - Other specified abnormalities of plasma proteins Status: Acute Assessment and Plan: type 2 DC, likely demand ischemia from acute symptomatic anemia and prior NSTEMI Trend troponin. consult cardiology and appreciate recommendations. Monitor telemetry. Hold antiplatelets and anticoagulants Continue coreg and lipitor as tolerated (3) Acute hypoxemic respiratory failure: Code(s): J96.01 - Acute respiratory failure with hypoxia Status: Acute Assessment and Plan: Secondary to flash pulmonary edema. Placed on bipap 04/09/18/FiO2 40% with adequate saturations, weaned to 2L NC O2 Lasix 40 mg IV x1 given following 1st unit PRBC, given 20 mg IV x1 prior ot 2nd unit and 20 mg IV following second unit PRBC x1 if needed. Monitor respiratory status Wean as tolerated to keep sats>92% (4) Left ventricular systolic dysfunction: Code(s): I51.9 - Heart disease, unspecified Status: Acute Assessment and Plan: holding carvedilol restart as needed diuretics as needed. (5) Chronic kidney disease (CKD) stage G3b/A3, moderately decreased glomerular filtration rate (GFR) between 30-44 mL/min/1.73 square meter and albuminuria creatinine ratio greater than 300 mg/g: Code(s): N18.32 - Chronic kidney disease, stage 3b Status: Acute Assessment and Plan: BUN and creatinine appears to be a patient's baseline continue to monitor daily intake and output Avoid nephrotoxic agents. (6) GERD (gastroesophageal reflux disease): Qualifiers: Esophagitis presence: without esophagitis Qualified Code(s): K21.9 - Gastro-esophageal reflux disease without esophagitis Code(s): K21.9 - Gastro-esophageal reflux disease without esophagitis Status: Acute Assessment and Plan: therapy PPI as needed (7) Closed fracture of surgical neck of humerus: Qualifiers: Encounter type: subsequent encounter Code(s): S42.213A - Unspecified displaced fracture of surgical neck of unspecified humerus, initial encounter for closed fracture Status: Acute Assessment and Plan: supportive care Tylenol as needed (8) CKD (chronic kidney disease) stage 3, GFR 30-59 ml/min: Code(s): N18.3 - Chronic kidney disease, stage 3 (moderate) Status: Chronic Assessment and Plan: chronic, stable. Monitor renal function Avoid nephrotoxic agents. Plan CODE STATUS: FULL CODE Disposition: home versus SNF rehab. Time Spent With Patient Time with patient: 15 - 25 minutes Subjective Date/time seen: 02/27/22 17:12 Patient found lying in bed. He still feels fatigued, but does feel improved from admission. Plans for EGD this afternoon. He has received 2 units PRBC since admission. Review of Systems Review of Systems: All systems reviewed & are unremarkable except as noted in HPI and below Exam Narrative: General: No acute distress.?Tired appearing older adult male. No oxygen. Mental Status/Psych: Awake, alert and oriented to person, place and time with clear speech. Neutral mood and affect. Pleasant and cooperative. Skin: Pallor, warm, dry and intact without rashes or lesions. No open wounds. Fair turgor.? HEENT: Normocephalic.Conjunctivae are clear. Sclera is non-icteric. Pupils equal and round. Grossly normal hearing. Oral mucosa moist. Neck: Supple without lymphadenopathy. No JVD. Heart: S1 and S2 regular rate and rhythm. No murmurs, gallops or rubs auscultated. Chest: Respi
[2022-02-28] VITALS (18 sets, daily range): BP systolic 103–138; BP diastolic 40–107; PULSE 57–120; RESP 16–26; TEMP 36.6–37.1; O2SAT 94–100
--- NOTE | 2022-02-28 07:54 | PM.IMPN ---
Progress Note: A&P Assessment and Plan (1) Acute GI bleeding: Code(s): K92.2 - Gastrointestinal hemorrhage, unspecified Status: Acute Assessment and Plan: c/o melena x2 days prior to admission and Hgb 5.3 on admission. Transfusion 2 units PRBC and trend H/H. Consulted GI and appreciate recommendations. 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 Transfuse 1 unit PRBCs today ( 3rd unit packed red blood cells this admission). Transfuse as needed to keep Hgb 9-10 given cardiac disease and elevated troponin/type 2 infarction (2) Elevated troponin: Code(s): R77.8 - Other specified abnormalities of plasma proteins Status: Acute Assessment and Plan: type 2 infarction, likely demand ischemia from acute symptomatic anemia and prior NSTEMI Trend troponin. 0.380 today 02/28/22 cardiology following and appreciate recommendations. Monitor telemetry. Hold antiplatelets and anticoagulants Continue coreg with hold parameters and lipitor Plan for outpatient cardiac catheterization when patient has recovered from acute GI bleed. (3) Acute hypoxemic respiratory failure: Code(s): J96.01 - Acute respiratory failure with hypoxia Status: Acute Assessment and Plan: Secondary to flash pulmonary edema. Placed on bipap 04/09/18/FiO2 40% with adequate saturations, weaned to 2L NC O2 Lasix 40 mg IV x1 given following 1st unit PRBC, given 20 mg IV x1 prior ot 2nd unit and 20 mg IV following second unit PRBC x1 if needed. Monitor respiratory status Wean as tolerated to keep sats>92% 02/28/22 Weaned to room air with adequate saturations . Patient does note a BiPAP was placed at 8:40 a.m. this morning for shortness of breath, SpO2 documented at 98-100% On room air prior to BiPAP and respiratory rate 20. (4) Left ventricular systolic dysfunction: Code(s): I51.9 - Heart disease, unspecified Status: Acute Assessment and Plan: Resume coreg with hold parameters and adjust as BP allows. diuretics as needed for s/s hypervolemia 02/28/22 patient appears euvolemic but is receiving 1 unit of PRBCs will plan to give IV Lasix x1 following transfusion (5) GERD (gastroesophageal reflux disease): Qualifiers: Esophagitis presence: without esophagitis Qualified Code(s): K21.9 - Gastro-esophageal reflux disease without esophagitis Code(s): K21.9 - Gastro-esophageal reflux disease without esophagitis Status: Acute Assessment and Plan: Chronic, continue PPI therapy (6) Closed fracture of surgical neck of humerus: Qualifiers: Encounter type: subsequent encounter Fracture morphology: unspecified fracture morphology Fracture alignment: displaced Laterality: right Fracture healing: with routine healing Qualified Code(s): S42.211D - Unspecified displaced fracture of surgical neck of right humerus, subsequent encounter for fracture with routine healing Code(s): S42.213A - Unspecified displaced fracture of surgical neck of unspecified humerus, initial encounter for closed fracture Status: Acute Assessment and Plan: supportive care Tylenol as needed (7) CKD (chronic kidney disease) stage 3, GFR 30-59 ml/min: Qualifiers: Chronic kidney disease stage 3 subtype: stage 3b (GFR 30-44) Qualified Code(s): N18.32 - Chronic kidney disease, stage 3b Code(s): N18.3 - Chronic kidney disease, stage 3 (moderate) Status: Chronic Assessment and Plan: chronic, stable. BUN and creatinine appears to be a patient's baseline Monitor renal function Avoid nephrotoxic agents. (8) Hypertension: Qualifiers: Hypertension type: primary hypertension Qualified Code(s): I10 - Stephane
[2022-02-28 08:08] LABS: Hematocrit 23.7 % (42.0-52.0); Hemoglobin 7.6 g/dL (14.0-18.0); Mean Corpuscular HGB Conc 32.1 g/dl (32-36); Mean Corpuscular Hemoglobin 30.9 pg (26-34); Mean Corpuscular Volume 96.3 fl (80-100); Mean Platelet Volume 9.6 fl (7.4-10.4); Platelet Count Result 327 k/mm3 (150-375); Red Blood Count 2.46 M/mm3 (4.6-6.20); Red Cell Distribution Width 22.7 % (11.5-14.5); White Blood Count 14.2 K/mm3 (4.5-10.0)
[2022-02-28 08:18] LABS: Anion Gap 10 mmol/L (8-16); Blood Urea Nitrogen 61 mg/dL (9-20); Carbon Dioxide 26 mmol/L (22-30); Chloride 104 mmol/L (98-107); Estimated CRCL calculation 22 ml/min; Estimated Glomerular Filt Rate 29; Glucose 133 mg/dL (65-110); Potassium 3.4 mmol/L (3.4-5.0); Sodium 140 mmol/L (137-145)
--- NOTE | 2022-02-28 09:19 | WPDANESPN ---
Anes - Prog Note Post-Op Date/Time: 02/28/22 09:19 Vital Signs: Last Vital Signs Temp 36.6 C 02/28/22 08:00 Pulse 95 02/28/22 08:00 Resp 26 H 02/28/22 08:00 BP 111/44 L 02/28/22 08:00 Pulse Ox 98 02/28/22 08:00 O2 Del Method Room Air 02/28/22 04:00 O2 Flow Rate 3 02/27/22 09:15 FiO2 40 02/28/22 04:00 Pain Score (VAS): 0 I/O: Intake & Output 02/27/22 02/28/22 02/28/22 23:59 07:59 15:59 Intake Total 120 200 Output Total 475 550 Balance -355 -350 Laboratory Tests 02/28/22 08:00 02/28/22 08:00 02/27/22 02/27/22 02/27/22 02:38 12:18 12:18 WBC RBC Hgb Hct MCV MCH MCHC RDW Plt Count MPV Sodium Potassium Chloride Carbon Dioxide Anion Gap BUN Creatinine Estim Creat Clear Calc Estimated GFR Glucose POC Capillary Glucose Calcium Magnesium 2.2 Troponin I 0.267 H* D Blood Type O Positive Antibody Screen Negative Crossmatch See Detail 02/27/22 02/27/22 02/27/22 13:53 15:09 15:36 WBC RBC Hgb 7.2 L Hct 22.6 L MCV MCH MCHC RDW Plt Count MPV Sodium Potassium Chloride Carbon Dioxide Anion Gap BUN Creatinine Estim Creat Clear Calc Estimated GFR Glucose POC Capillary Glucose 117 H 120 H Calcium Magnesium Troponin I Blood Type Antibody Screen Crossmatch 02/27/22 02/28/22 02/28/22 20:18 08:00 08:00 WBC 14.2 H RBC 2.46 L Hgb 7.0 L 7.6 L Hct 22.0 L 23.7 L MCV 96.3 D MCH 30.9 D MCHC 32.1 RDW 22.7 H Plt Count 327 MPV 9.6 Sodium 140 Potassium 3.4 Chloride 104 Carbon Dioxide 26 Anion Gap 10 BUN 61 H D Creatinine 2.20 H Estim Creat Clear Calc 22 Estimated GFR 29 L Glucose 133 H POC Capillary Glucose Calcium 8.0 L Magnesium Troponin I 0.380 H* Blood Type Antibody Screen Crossmatch Patient Feedback: Patient satisfied with anesthetic care.
[2022-02-28] MEDS: GABAPENTIN 300 MG CAPSULE PO ×2 (10:20→20:52)
[2022-02-28] MEDS: PANTOPRAZOLE 40 MG TABLET PO ×2 (10:20→20:52)
[2022-02-28] MEDS: CHOLECALCIFEROL 1,000 UNITS TABLET 1000 UNITS PO (10:21)
[2022-02-28] MEDS: carvediloL 6.25 MG TABLET PO ×2 (10:21→20:52)
[2022-02-28] MEDS: LATANOPROST 0.005% OP SOLN 2.5 ML BTL 1 DROP EACH EYE (10:21)
[2022-02-28] MEDS: SODIUM CHLORIDE 0.9% IV 250 ML 30 ML IV CONT (10:22)
[2022-02-28] MEDS: ATORVASTATIN 40 MG TABLET PO (10:22)
[2022-02-28] MEDS: FUROSEMIDE INJ 40 MG/4 ML VIAL 20 MG IV PUSH (10:24)
--- NOTE | 2022-02-28 10:52 | PM.PNCARD ---
Progress Note: A&P Assessment and Plan (1) Acute blood loss anemia: Code(s): D62 - Acute posthemorrhagic anemia Status: Acute Assessment and Plan: As per GI. Underwent EGD yesterday which showed a single dieulafoy lesion in the second part of the duodenum. The dieulafoy lesion was oozing blood. The lesion was cauterized and no more bleeding after treatment. GI recommends no blood thinners for at least 1 week. Would continue to hold Plavix and Eliquis. (2) Melena: Code(s): K92.1 - Melena Status: Acute Assessment and Plan: As per GI. Underwent EGD yesterday which showed a single dieulafoy lesion in the second part of the duodenum. The dieulafoy lesion was oozing blood. The lesion was cauterized and no more bleeding after treatment. GI recommends no blood thinners for at least 1 week. Would continue to hold Plavix and Eliquis. (3) Elevated troponin: Code(s): R77.8 - Other specified abnormalities of plasma proteins Status: Acute Assessment and Plan: Holding Plavix given the above. No signs/symptoms of ACS, likely due to significant anemia. No plans for cardiac cath at this time. Patient to follow up with me in Cardiology Clinic. Time Spent With Patient Time with patient: 15 - 25 minutes Subjective Date/time seen: 02/28/22 10:52 Interval history: Follow-up visit for elevated troponin. Patient underwent EGD yesterday which showed a single dieulafoy lesion in the second part of the duodenum. The dieulafoy lesion was oozing blood. The lesion was cauterized and no more bleeding after treatment. Hgb in the 7s today. Coreg was restarted. Review of Systems Constitutional: Constitutional: Denies body ache(s), Denies chills, Reports fatigue and Reports weakness Eyes: Eyes: Denies no additional eye complaints ENT: Denies dysphagia and Denies epistaxis Cardiovascular: Cardiovascular: Reports no additional cardiovascular complaints Respiratory: Respiratory: Reports no additional respiratory complaints Gastrointestinal: Comments: Melena Musculoskeletal: Musculoskeletal: Reports no additional musculoskeletal complaints Integumentary/Breasts: Skin/Breast: Reports system reviewed and no additional complaints, except as docu Neurologic: Reports system reviewed and no additional complaints, except as documented Hematologic/Lymphatic: Hematologic/Lymphatic: Reports as per HPI Exam Const: General: no acute distress Eyes: General: appearance normal, both eyes and all related structures Neck: Neck: supple and no JVD Resp: Effort & Inspection: normal respiratory effort Auscultation: diminished lung sounds Cardio: Rate: regular rate Rhythm: abnormal rhythm irregularly irregular Heart sounds: no murmurs GI: GI Palp: Yes Soft to palpation and No Tenderness to palpation present (GI) Skin: General skin exam: normal color Neuro: Speech: normal speech Extrem: General: no edema Psych: Mental Status: mental status grossly normal Objective Data Vital Signs Vital Signs: Vital Signs - 24 hr 02/27/22 11:50 02/27/22 12:45 02/27/22 12:00 Temperature 36.6 C 36.7 C Pulse Rate 81 81 Respiratory Rate 16 22 H Blood Pressure 106/50 L 113/47 L Pulse Oximetry 96 97 Oxygen Delivery Room Air Fraction of Inspired Oxygen 02/27/22 13:44 02/27/22 12:00 02/27/22 14:47 Temperature 36.4 C L Pulse Rate 79 71 62 Respiratory Rate 20 18 Blood Pressure 117/44 L 132/79 Pulse Oximetry 97 100 Oxygen Delivery Room Air Room Air Fraction of Inspired Oxygen 02/27/22 14:57 02/27/22 15:07 02/27/22 16:00 Temperature 36.4 C L Pulse Rate 74 84 82 Respiratory Rate 27 H 30 H 18 Blood Pressure 114/56 L 111/52 L 113/49 L Pulse Oximetry 96 100 96 Oxygen Delivery Room Air Room Air Fraction of Inspired Oxygen 02/27/22 16:00 02/27/22 16:00 02/27/22 18:00 Temperature Pulse Rate 75 75 Respiratory Rate Blood Pressure Pulse Oximetry
--- NOTE | 2022-02-28 11:25 | PC.NURSE ---
First unit of blood issued today (unit number [id number]) was outside of temperature range at the time it was going to be hung. Blood Bank Marta notified and it was returned to blood bank and new unit was issued.
--- NOTE | 2022-02-28 12:52 | WPDGIPROGNO ---
Progress Note: A&P Assessment and Plan (1) Dieulafoy lesion (hemorrhagic) of intestine: Code(s): K63.81 - Dieulafoy lesion of intestine Status: Acute Assessment and Plan: source of bleeding continue with protonix expect melena for 1-2 days but keep trending h/h, transfuse as needed to keep hb>7 (2) Melena: Code(s): K92.1 - Melena Status: Acute Assessment and Plan: continue to monitor holding blood thinners (3) Acute GI bleeding: Code(s): K92.2 - Gastrointestinal hemorrhage, unspecified Status: Acute (4) Acute blood loss anemia: Code(s): D62 - Acute posthemorrhagic anemia Status: Acute Assessment and Plan: treated with egd and blood transfusion (5) [id number] kidney injury: Code(s): N17.9 - Acute kidney failure, unspecified; N18.9 - Chronic kidney disease, unspecified Status: Acute Assessment and Plan: monitor (6) Closed fracture of surgical neck of humerus: Qualifiers: Encounter type: subsequent encounter Code(s): S42.213A - Unspecified displaced fracture of surgical neck of unspecified humerus, initial encounter for closed fracture Status: Acute (7) NSTEMI (non-ST elevated myocardial infarction): Code(s): I21.4 - Non-ST elevation (NSTEMI) myocardial infarction Status: Acute Assessment and Plan: cardiology on board Subjective Date/time seen: 02/28/22 12:52 Interval history: egd yesterday found active bleeding from Dieulafoy lesion treated endoscopically, today had melena and he is getting PRBC now. Review of Systems Review of Systems: All systems reviewed & are unremarkable except as noted in HPI and below Exam Const: General: no acute distress HENMT: Face/Nose/Sinus: Normal nares present Eyes: General: appearance normal, both eyes and all related structures Neck: Neck: supple and no JVD Resp: Effort & Inspection: normal respiratory effort Auscultation: clear to auscultation bilaterally Cardio: Rate: regular rate Rhythm: regular rhythm Heart sounds: no murmurs GI: GI Palp: Yes Soft to palpation and No Tenderness to palpation present (GI) Auscultation: normal bowel sounds Skin: Other: pale Neuro: Speech: normal speech Sensory Exam: normal sensation Extrem: General: no edema Other: bruise in rt arm (recent fracture) Psych: Mental Status: mental status grossly normal Objective Data Vital Signs Vital Signs: Vital Signs - 24 hr 02/27/22 13:44 02/27/22 14:47 02/27/22 14:57 Temperature 97.5 F L Pulse Rate 79 62 74 Respiratory Rate 20 18 27 H Blood Pressure 117/44 L 132/79 114/56 L Pulse Oximetry 97 100 96 Oxygen Delivery Room Air Room Air Room Air Fraction of Inspired Oxygen 02/27/22 15:07 02/27/22 16:00 02/27/22 16:00 Temperature 97.5 F L Pulse Rate 84 82 Respiratory Rate 30 H 18 Blood Pressure 111/52 L 113/49 L Pulse Oximetry 100 96 Oxygen Delivery Room Air Room Air Fraction of Inspired Oxygen 02/27/22 16:00 02/27/22 18:00 02/27/22 20:00 Temperature 97.7 F Pulse Rate 75 75 86 Respiratory Rate 16 Blood Pressure 113/66 Pulse Oximetry 97 Oxygen Delivery Fraction of Inspired Oxygen 02/27/22 20:00 02/27/22 20:00 02/27/22 22:00 Temperature Pulse Rate 86 86 72 Respiratory Rate 16 Blood Pressure Pulse Oximetry 97 Oxygen Delivery Room Air Fraction of Inspired Oxygen 40 02/28/22 00:00 02/28/22 00:00 02/28/22 00:00 Temperature 98.1 F Pulse Rate 87 75 75 Respiratory Rate 16 16 Blood Pressure 103/40 L Pulse Oximetry 99 99 Oxygen Delivery Room Air Fraction of Inspired Oxygen 40 02/28/22 02:00 02/28/22 04:00 02/28/22 04:00 Temperature 98.1 F Pulse Rate 76 80 78 Respiratory Rate 16 Blood Pressure 113/50 L Pulse Oximetry 100 Oxygen Delivery Fraction of Inspired Oxygen 02/28/22 04:00 02/28/22 06:00 02/28/22 08:00 Temperature 98 F Pul
[2022-02-28 16:29] LABS: Glucose Point of Care 156 mg/dl (65-105)
[2022-02-28 17:52] LABS: Hemoglobin 9.1 g/dL (14.0-18.0)
[2022-02-28] MEDS: TERAZOSIN HCL 5 MG CAPSULE PO (20:52)
[2022-03-01] VITALS: BP 113/53; PULSE 72; PULSE 73; RESP 16; TEMP 36.8; O2SAT 100
[2022-03-01 02:15] VITALS: O2SAT 97
[2022-03-01 04:00] VITALS: PULSE 75
[2022-03-01 05:04] LABS: Basophils Percent Auto 0.3 % (0.2-1.2); Eosinophils Absolute Auto 0.2 K/mm3 (0-0.3); Eosinophils Percent Auto 1.6 % (0-4.4); Hematocrit 25.5 % (42.0-52.0); Hemoglobin 8.4 g/dL (14.0-18.0); Immature Granulocyte Absolute 0.05 K/mm3 (0.00-0.031); Immature Granulocyte Percent A 0.4 % (0-0.5); Lymphocytes Absolute Auto 1.03 K/mm3 (0.9-3.2); Lymphocytes Percent Auto 8.9 % (18.3-44.2); Mean Corpuscular HGB Conc 32.9 g/dl (32-36); Mean Corpuscular Hemoglobin 30.4 pg (26-34); Mean Corpuscular Volume 92.4 fl (80-100); Mean Platelet Volume 10.2 fl (7.4-10.4); Monocytes Absolute Auto 0.9 K/mm3 (0.1-0.6); Monocytes Percent Auto 7.3 % (2.6-8.5); Neutrophils Absolute Auto 9.4 K/mm3 (1.3-6.7); Neutrophils Percent Auto 81.5 % (45.5-73.1); Platelet Count Result 306 k/mm3 (150-375); Red Blood Count 2.76 M/mm3 (4.6-6.20); Red Cell Distribution Width 21.3 % (11.5-14.5); White Blood Count 11.6 K/mm3 (4.5-10.0)
[2022-03-01 05:15] LABS: Alanine Aminotransferase 21 U/L (6-50); Alkaline Phosphatase 85 U/L (38-126); Anion Gap 10 mmol/L (8-16); Aspartate Amino Transferase 27 U/L (17-59); Bilirubin,Total 1.2 mg/dL (0.2-1.3); Blood Urea Nitrogen 54 mg/dL (9-20); Calcium 7.7 mg/dL (8.4-10.2); Carbon Dioxide 27 mmol/L (22-30); Chloride 100 mmol/L (98-107); Estimated CRCL calculation 25 ml/min; Estimated Glomerular Filt Rate 32; Glucose 122 mg/dL (65-110); Potassium 2.9 mmol/L (3.4-5.0); Sodium 137 mmol/L (137-145)
[2022-03-01] MEDS: POTASSIUM CHLORIDE 20 MEQ PACKET (FOR LIQUID) 40 MEQ PO (07:39)
[2022-03-01 08:00] VITALS: BP 111/74; PULSE 80; PULSE 90; RESP 20; TEMP 36.4; O2SAT 97; O2SAT 99
[2022-03-01] MEDS: LIDOCAINE 5% PATCH 1 PATCH TOPICAL (09:50)
[2022-03-01 09:51] VITALS: PULSE 68
[2022-03-01] MEDS: LATANOPROST 0.005% OP SOLN 2.5 ML BTL 1 DROP EACH EYE (09:51)
[2022-03-01] MEDS: CHOLECALCIFEROL 1,000 UNITS TABLET 1000 UNITS PO (09:51)
[2022-03-01] MEDS: carvediloL 6.25 MG TABLET PO (09:51)
[2022-03-01] MEDS: GABAPENTIN 300 MG CAPSULE PO ×2 (09:51→13:02)
[2022-03-01] MEDS: PANTOPRAZOLE 40 MG TABLET PO (09:51)
[2022-03-01] MEDS: ATORVASTATIN 40 MG TABLET PO (09:51)
--- NOTE | 2022-03-01 10:00 | WPDGIPROGNO ---
Progress Note: A&P Assessment and Plan (1) Dieulafoy lesion (hemorrhagic) of intestine: Code(s): K63.81 - Dieulafoy lesion of intestine Status: Acute Assessment and Plan: treated endoscopically he can go home with ppi daily no more signs of bleeding hold AC for 1 week (2) Acute blood loss anemia: Code(s): D62 - Acute posthemorrhagic anemia Status: Acute Assessment and Plan: resolved but required blood transfusion (3) Melena: Code(s): K92.1 - Melena Status: Acute (4) Atrial fibrillation: Code(s): I48.91 - Unspecified atrial fibrillation Status: Acute (5) Chronic kidney disease (CKD) stage G3b/A3, moderately decreased glomerular filtration rate (GFR) between 30-44 mL/min/1.73 square meter and albuminuria creatinine ratio greater than 300 mg/g: Code(s): N18.32 - Chronic kidney disease, stage 3b Status: Acute (6) Closed fracture of surgical neck of humerus: Qualifiers: Encounter type: subsequent encounter Fracture morphology: unspecified fracture morphology Fracture alignment: displaced Laterality: right Fracture healing: with routine healing Qualified Code(s): S42.211D - Unspecified displaced fracture of surgical neck of right humerus, subsequent encounter for fracture with routine healing Code(s): S42.213A - Unspecified displaced fracture of surgical neck of unspecified humerus, initial encounter for closed fracture Status: Acute Subjective Date/time seen: 03/01/22 10:00 last BM this morning was brown, no new complaints. Family at bedside Review of Systems Review of Systems: All systems reviewed & are unremarkable except as noted in HPI and below Exam Narrative: General: No acute distress.? sitting up in bed. No oxygen. Mental Status/Psych: Awake, alert and oriented to person, place and time with clear speech. Neutral mood and affect. Pleasant and cooperative. Skin: Pallor, fair, warm, dry and intact without rashes or lesions. No open wounds. Fair turgor.? HEENT: Normocephalic. Sclera is non-icteric. Pupils equal and round. Oral mucosa pale pink and dry. Neck: No JVD. Heart: irregularly irregular rate and rhythm. No murmurs, gallops or rubs auscultated. Chest: Respirations even and unlabored. Lung sounds clear to auscultation upper lobes. Abdomen: Soft, round and nontender to palpation.? Bowel sounds normoactive in all 4 quadrants. No guarding. Extremities:? Grossly normal ROM all extremities. Generalized weakness. No edema, erythema, tenderness to palpation or deformity. Neurological: No focal deficits. Cranial nerves 2-12 grossly intact. no tremors or fasciculations. ? Objective Data Vital Signs Vital Signs: Vital Signs - 24 hr 02/28/22 16:00 02/28/22 20:00 02/28/22 16:00 Temperature 97.8 F 98.6 F Pulse Rate 79 81 75 Respiratory Rate 22 H 16 Blood Pressure 138/107 H 133/53 L Pulse Oximetry 95 96 Oxygen Delivery Oxygen Flow Rate 02/28/22 20:52 02/28/22 20:00 03/01/22 00:00 Temperature 98.2 F Pulse Rate 87 73 Respiratory Rate 16 Blood Pressure 113/53 L Pulse Oximetry 100 Oxygen Delivery Room Air Oxygen Flow Rate 02/28/22 20:00 03/01/22 00:00 03/01/22 04:00 Temperature Pulse Rate 76 72 75 Respiratory Rate Blood Pressure Pulse Oximetry Oxygen Delivery Oxygen Flow Rate 03/01/22 02:15 03/01/22 08:00 03/01/22 08:00 Temperature 97.6 F Pulse Rate 80 Respiratory Rate 20 Blood Pressure 111/74 Pulse Oximetry 97 97 99 Oxygen Delivery Nasal Cannula Room Air Oxygen Flow Rate 2 03/01/22 09:51 03/01/22 08:00 03/01/22 12:00 Temperature Pulse Rate 68 90 80 Respiratory Rate Blood Pressure Pulse Oximetry Oxygen Delivery Oxygen Flow Rate Intake/Output Intake/Output: Intake & Output 02/26/22 02/27/22 02/28/22 03/01/22 23:59 23:59 23:59 23:59 Intake Total 1040 1695 400 Output Total 9472 2330 Balance -2315 -
[2022-03-01 12:00] VITALS: PULSE 80
[2022-03-01 12:10] LABS: Magnesium 2.2 mg/dL (1.6-2.3); Potassium 3.5 mmol/L (3.4-5.0)
--- NOTE | 2022-03-01 12:48 | PM.DS ---
DS: Admitting Diagnosis Discharge Date 03/01/2022 1256 Admitting Diagnosis Acute GI bleeding Anemia from acute blood loss Type 2 infarction Acute hypoxic respiratory failure Acute on chronic systolic congestive heart failure DS: Discharge Diagnosis Discharge Diagnosis (1) Acute GI bleeding: Code(s): K92.2 - Gastrointestinal hemorrhage, unspecified Status: Acute Assessment and Plan: c/o melena x2 days prior to admission and Hgb 5.3 on admission. Transfusion at 2 units PRBC on admission and monitored H/H. 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 Transfuse 1 unit PRBCs today (3rd unit packed red blood cells this admission). Transfuse as needed to keep Hgb 9-10 given cardiac disease and elevated troponin/type 2 infarction (2) Elevated troponin: Code(s): R77.8 - Other specified abnormalities of plasma proteins Status: Acute Assessment and Plan: type 2 infarction, likely demand ischemia from acute symptomatic anemia and prior NSTEMI Trend troponin- 0.0177- 0.190- 0.267- 0.380 on 02/28/22 cardiology consulted and plan to have outpatient cardiac catheterization when patient has recovered from acute GI bleed. Monitor telemetry - SR/rate controlled afib intermittently Holding antiplatelets and anticoagulants Continued coreg with hold parameters and lipitor Follow up with Cardiology in 3 weeks. (3) Acute hypoxemic respiratory failure: Code(s): J96.01 - Acute respiratory failure with hypoxia Status: Acute Assessment and Plan: Secondary to flash pulmonary edema and volume overload from acute on chronic systolic CHF Placed on bipap 04/09/18/FiO2 40% with adequate saturations on admission. weaned to 2L NC O2 02/28/22, weaned to room air 03/01/22. Lasix 40 mg IV x1 given following 1st unit PRBC, given 20 mg IV x1 prior to 2nd unit and 20 mg IV following second unit PRBC x1 Lasix 20 mg IV x1 following 3rd unit PRBC. - 02/28/22 Weaned to room air with adequate saturations . Patient does note a BiPAP was placed at 8:40 a.m. this morning for shortness of breath, SpO2 documented at 98-100% On room air prior to BiPAP and respiratory rate 20. 03/01/22 on room air with spO2 99% (4) Left ventricular systolic dysfunction: Code(s): I51.9 - Heart disease, unspecified Status: Acute Assessment and Plan: Resume coreg with hold parameters and adjust as BP allows. diuretics as needed for s/s hypervolemia BNP 728 on admission 02/27/22 lasix given IV x3 doses following PRBC units 02/28/22 patient appears euvolemic but is receiving 1 unit of PRBCs will plan to give IV Lasix x1 following transfusion 03/01/22 on room air with good sats. -2240 mL since admission (5) GERD (gastroesophageal reflux disease): Qualifiers: Esophagitis presence: without esophagitis Qualified Code(s): K21.9 - Gastro-esophageal reflux disease without esophagitis Code(s): K21.9 - Gastro-esophageal reflux disease without esophagitis Status: Acute Assessment and Plan: Chronic, continue PPI therapy (6) Closed fracture of surgical neck of humerus: Qualifiers: Encounter type: subsequent encounter Fracture alignment: displaced Fracture healing: with routine healing Fracture morphology: unspecified fracture morphology Laterality: right Qualified Code(s): S42.211D - Unspecified displaced fracture of surgical neck of right humerus, subsequent encounter for fracture with routine healing Code(s): S42.213A - Unspecified displaced fracture of surgical neck of unspecified humerus, initial encounter for closed fracture
== END 2022-03-01 13:55 | disposition home or self-care (01) | DRG 377 ==
LOC: ANHED 02:14 → ANHIMU 03:14
PROVIDERS: Internal Medicine; Internal Medicine Gastroenterology; Admitting Provider Internal Medicine; Emergency Provider Emergency Medicine; PCP Family Medicine; Visit Provider Nurse Practitioner Family
PROC: 0DJ08ZZ Inspection of Upper Intestinal Tract, Via Natural or Artificial Opening Endoscopic (ICD-10-PCS; CPT 43235; principal; 2022-02-27 15:30)
DX: K31.82 Dieulafoy lesion (hemorrhagic) of stomach and duodenum (principal); I21.4 Non-ST elevation (NSTEMI) myocardial infarction; I21.A1 Myocardial infarction type 2; J96.01 Acute respiratory failure with hypoxia; I50.23 Acute on chronic systolic (congestive) heart failure; D62 Acute posthemorrhagic anemia; I13.0 Hypertensive heart and chronic kidney disease with heart failure and stage 1 through stage 4 chronic kidney disease, or unspecified chronic kidney disease; E11.22 Type 2 diabetes mellitus with diabetic chronic kidney disease; N18.32 Chronic kidney disease, stage 3b; D50.9 Iron deficiency anemia, unspecified; K44.9 Diaphragmatic hernia without obstruction or gangrene; I48.91 Unspecified atrial fibrillation; I35.0 Nonrheumatic aortic (valve) stenosis; K21.9 Gastro-esophageal reflux disease without esophagitis; E78.5 Hyperlipidemia, unspecified; S42.211D Unspecified displaced fracture of surgical neck of right humerus, subsequent encounter for fracture with routine healing; W19.XXXD Unspecified fall, subsequent encounter; M19.90 Unspecified osteoarthritis, unspecified site; H40.9 Unspecified glaucoma; Z28.21 Immunization not carried out because of patient refusal; Z79.01 Long term (current) use of anticoagulants; Z79.02 Long term (current) use of antithrombotics/antiplatelets; Z79.899 Other long term (current) drug therapy; Z87.891 Personal history of nicotine dependence; Z98.49 Cataract extraction status, unspecified eye
CPT/HCPCS: 36415; 36430; 71045; 80048; 80053; 82948; 83690; 83735; 84132; 84484; 85014; 85018; 85025; 85027; 85610; 85730; 86850; 86900; 86901; 86920; 86923; 93005; 94002; 94003; 96374; 97161; 97165; 99285; A9270; C9113; J1940; J2270; J2704; J3480; J7030; J7040; J7050; J7120; P9016

== ENCOUNTER 2022-03-05 13:30 | Outpatient (CLI) | payer MEDICARE, SELFPAY ==
[2022-03-05 13:45] LABS: Hematocrit 29.2 % (37.0-46.0); Hemoglobin 9.3 g/dL (12.4-15.3); Mean Corpuscular HGB Conc 31.8 g/dL (32.0-36.0); Mean Corpuscular Hemoglobin 31.1 pg (27.0-31.0); Mean Corpuscular Volume 97.7 fL (78.0-102.0); Mean Platelet Volume 9.1 fl (8.7-11.0); Platelet Count Result 311 K/mm3 (150-420); Red Blood Count 2.99 M/mm3 (4.70-6.10); White Blood Count 6.3 K/mm3 (4.8-10.8)
[2022-03-05 14:36] LABS: Alanine Aminotransferase 23 U/L (16-63); Alkaline Phosphatase 105 U/L (46-116); Anion Gap 7 mmol/L (8-16); Aspartate Amino Transferase 19 U/L (15-37); Bilirubin,Total 0.4 mg/dL (0.00-1.00); Blood Urea Nitrogen 35 mg/dL (7-18); Carbon Dioxide 31 mmol/L (21-32); Chloride 104 mmol/L (98-108); Estimated Glomerular Filt Rate 32; Glucose 117 mg/dL (70-99); Osmolality Calculated 303 mOsm/kg (285-295); Potassium 3.7 mmol/L (3.5-5.1); Sodium 142 mmol/L (136-145); Total Protein 6.4 g/dL (6.4-8.2)
== END 2022-03-05 13:31 | disposition home or self-care (01) ==
LOC: CHSLAB 13:33
PROVIDERS: PCP Family Medicine; Visit Provider Family Medicine
DX: K63.81 Dieulafoy lesion of intestine (principal); D62 Acute posthemorrhagic anemia
CPT/HCPCS: 36415; 80053; 85027

== ENCOUNTER 2022-03-09 10:53 | Outpatient (CLI) | payer MEDICARE, OTHER, SELFPAY ==
--- NOTE | ~2022-03-09 | XR_ITS ---
XR shoulder RT min 2V DATE: 03/09/2022 11:19 INDICATION: Fall on February 11, 2022. Right shoulder pain. TECHNIQUE: 4 views COMPARISON: 02/13/2022 right shoulder FINDINGS: Coronary fracture the proximal humerus including transverse surgical neck fracture and frac ture of the greater tuberosity. A linear nondisplaced fracture extends into the proximal humeral shaf t. There is mild medial displacement of the distal femoral fracture fragment, but minimal change in p osition or alignment since 02/13/2022. Alignment is preserved at the acromioclavicular and glenohumeral joints. Osteopenia Neurotransmitter leads overlying the thoracic spine. IMPRESSION: Comminuted fracture proximal right humerus; little interval change in position or alignment since 04/2022 Reviewed, dictated and finalized at location A. IMPRESSION: Comminuted fracture proximal right humerus; little interval change in position or alignment since 02/13/2022
== END 2022-03-09 10:54 | disposition home or self-care (01) ==
LOC: CHSIMG 10:56
PROVIDERS: PCP Family Medicine; Visit Provider Orthopaedic Surgery
DX: M25.511 Pain in right shoulder (principal)
CPT/HCPCS: 73030

== ENCOUNTER 2022-03-15 11:24 | Outpatient (NON) | payer MEDICARE, SELFPAY ==
[2022-03-15 11:33] LABS: Hematocrit 34.1 % (37.0-46.0); Hemoglobin 10.1 g/dL (12.4-15.3); Mean Corpuscular HGB Conc 29.6 g/dL (32.0-36.0); Mean Corpuscular Hemoglobin 30.1 pg (27.0-31.0); Mean Corpuscular Volume 101.5 fL (78.0-102.0); Mean Platelet Volume 10.8 fl (8.7-11.0); Platelet Count Result 274 K/mm3 (150-420); Red Blood Count 3.36 M/mm3 (4.70-6.10); Red Cell Distribution Width 17.1 % (11.6-14.4); White Blood Count 6.5 K/mm3 (4.8-10.8)
== END 2022-03-15 11:25 | disposition home or self-care (01) ==
LOC: CHSLAB 11:25
PROVIDERS: Family Medicine; Visit Provider Nurse Practitioner Family
DX: D62 Acute posthemorrhagic anemia (principal); K63.81 Dieulafoy lesion of intestine
CPT/HCPCS: 36415; 85027

== ENCOUNTER 2022-04-05 14:33 | Outpatient (CLI) | payer MEDICARE, OTHER, SELFPAY ==
--- NOTE | ~2022-04-05 | XR_ITS ---
XR shoulder RT min 2V DATE: 04/05/2022 14:58 INDICATION: Right shoulder pain. Fall on 02/11/2022 TECHNIQUE: 5 views COMPARISON: 03/09/2022 right shoulder 02/13/2022 right shoulder and right humerus FINDINGS: Diffuse osteopenia. Degenerative change at the right acromioclavicular joint. Comminuted fractures of the proximal right humerus including transverse surgical neck fracture and fr acture of the greater tuberosity are again noted, without any change in position or alignment since . There is patchy sclerosis cysts and callus formation consistent with healing. Alignment is preserved at the acromioclavicular and glenohumeral joints with exception of some wideni ng of the glenohumeral joint which may be consistent with some glenohumeral joint laxity or mild subl uxation. Electrode overlies the mid thoracic spinal canal. IMPRESSION: Healing comminuted fracture of right proximal humerus including surgical neck and greater tuberosity, without significant change in position or alignment since 02/13/2022 Osteopenia Glenohumeral joint laxity or mild subluxation Degenerative change at right acromion clavicular joint Reviewed, dictated and finalized at location B. STAPLER IMPRESSION: Healing comminuted fracture of right proximal humerus including maribell gical neck and greater tuberosity, without significant change in position or al ignment since 02/13/2022 Osteopenia Glenohumeral joint laxity or mild subluxation Degenerative change at right acromion clavicular joint
== END 2022-04-05 14:34 | disposition home or self-care (01) ==
LOC: CHSIMG 14:35
PROVIDERS: PCP Family Medicine; Visit Provider Orthopaedic Surgery
DX: M25.511 Pain in right shoulder (principal)
CPT/HCPCS: 73030

== ENCOUNTER 2022-06-23 04:14 | Observation (INO) | payer MEDICARE, OTHER, SELFPAY ==
[2022-06-23] VITALS (17 sets, daily range): BP systolic 131–186; BP diastolic 59–138; PULSE 71–84; RESP 8–20; TEMP 36.2–36.6; O2SAT 94–99; BMI 22.3
--- NOTE | ~2022-06-23 | CT_ITS ---
EXAMINATION: CTA chest PE protocol DATE: 06/23/2022 07:33 LUGGAGE ATTENDANT INDICATION: Elevated d-dimer. Covid positive. TECHNIQUE: Computed tomographic angiography (CTA) of the chest was performed with 100 mL Omnipaque-35 0 intravenous contrast. The dose-length product was 283.48 mGy-cm. Maximum intensity projection 3D-re constructions of the aorta and other arteries were constructed by the technologist on a separate work station. Automated exposure control and iterative reconstruction technique were employed. COMPARISON: chest dated 06/23/2022. FINDINGS: Study is technically adequate without evidence for pulmonary embolism. There is atheroscler osis of the aorta and coronary arteries. No evidence for aneurysm. There are gallstones. Small hiatal hernia. No thoracic lymphadenopathy. No significant pleural or pericardial effusion. No pneumothorax . No endobronchial lesions. No focal airspace disease. Moderate thoracic spondylosis with accentuated kyphosis. No focal lytic or blastic lesions. IMPRESSION: 1. No acute cardiopulmonary disease. No evidence for pulmonary embolism. Reviewed, dictated and finalized at location A. AGE ATTENDANT
--- NOTE | ~2022-06-23 | XR_ITS ---
EXAMINATION: XR chest 2V 06/23/2022 04:47 INDICATION: Lower chest pain PROCEDURE: 2 view chest COMPARISON: Comparison to multiple prior studies sequentially, with oldest reviewed study dated 02/04. FINDINGS: The lungs are clear. The lungs are hyperinflated which is consistent with, but not diagnost ic of chronic obstructive pulmonary disease. The cardiomediastinal silhouette is within normal limits . There are no pleural effusions. There is no pneumothorax suspected. IMPRESSION: 1: NO ACUTE CARDIOPULMONARY DISEASE. Reviewed, dictated and finalized at location A.
--- NOTE | 2022-06-23 04:25 | ECG_ITS ---
Measurements Intervals [place] Rate: 78 P: 80 MT: 242 QRS: 58 QRSD: 85 T: 40 QT: 371 QTc: 424 Interpretive Statements SINUS RHYTHM WITH FIRST DEGREE AV BLOCK BASELINE ARTIFACT NONSPECIFIC ST & T-WAVE ABNORMALITY BORDERLINE ECG COMPARED TO ECG 02/27/2022 01:19:28 ST ABNORMALITIES LESS PROMINENT Electronically Signed On 06-23-2022 14:34:09 JACK SPOOLER TENDER by Hung Burns M.D.
[2022-06-23] MEDS: MAG HYDROX/ALUMINUM HYD/SIMETH 30 ML, PHENobarb/HYOSCY/ATROPINE/SCOP 32.4 MG, LIDOCAINE... PO (04:45)
[2022-06-23 04:49] LABS: Basophils Absolute Auto 0.04 K/mm3 (0.00-0.10); Basophils Percent Auto 0.4 % (0.0-1.0); Eosinophils Absolute Auto 0.35 K/mm3 (0.02-0.50); Eosinophils Percent Auto 3.4 % (1.0-6.0); Hematocrit 32.3 % (37.0-46.0); Hemoglobin 10.4 g/dL (12.4-15.3); Immature Granulocyte Absolute 0.06 K/mm3 (0.00-0.00); Immature Granulocyte Percent A 0.6 % (0.0-0.0); Lymphocytes Absolute Auto 1.27 K/mm3 (1.10-4.50); Lymphocytes Percent Auto 12.2 % (18.0-42.0); Mean Corpuscular HGB Conc 32.2 g/dL (32.0-36.0); Mean Corpuscular Hemoglobin 31.9 pg (27.0-31.0); Mean Corpuscular Volume 99.1 fL (78.0-102.0); Mean Platelet Volume 11.1 fl (8.7-11.0); Monocytes Percent Auto 3.8 % (2.0-11.0); Neutrophils Absolute Auto 8.3 K/mm3 (1.7-7.2); Neutrophils Percent Auto 79.6 % (50.0-70.0); Platelet Count Result 197 K/mm3 (150-420); Red Blood Count 3.26 M/mm3 (4.70-6.10); Red Cell Distribution Width 13.4 % (11.6-14.4); White Blood Count 10.4 K/mm3 (4.8-10.8)
[2022-06-23 05:09] LABS: Partial Thromboplastin Time 26.9 SEC (23.90-30.70); Prothrombin Time 10.8 Seconds (9.50-12.10)
[2022-06-23 05:12] LABS: Alanine Aminotransferase 21 U/L (16-63); Albumin Level 3.7 g/dL (3.4-5.0); Alkaline Phosphatase 88 U/L (46-116); Anion Gap 8 mmol/L (8-16); Aspartate Amino Transferase 21 U/L (15-37); Bilirubin,Total 0.3 mg/dL (0.00-1.00); Blood Urea Nitrogen 31 mg/dL (7-18); Calcium 8.9 mg/dL (8.5-10.1); Carbon Dioxide 28 mmol/L (21-32); Chloride 106 mmol/L (98-108); Estimated CRCL calculation 32 ml/min; Estimated Glomerular Filt Rate 42; Glucose 154 mg/dL (70-99); Lipase 58 U/L (16-77); NT Pro B Type Natriuretic Pept 5569 pg/mL (0-450); Osmolality Calculated 303 mOsm/kg (285-295); Potassium 4.5 mmol/L (3.5-5.1); Sodium 142 mmol/L (136-145); Total Protein 7.1 g/dL (6.4-8.2)
[2022-06-23 05:17] LABS: D Dimer 0.84 mg/L (0.19-0.50)
[2022-06-23 05:33] LABS: Troponin I 47.3 ng/L (0.00-60.4)
--- NOTE | 2022-06-23 06:25 | ED.CHESTPAIN ---
HPI - Chest Pain General Chief Complaint: Chest Pain <James Lynn MD - Last Filed: 06/23/22 06:31> Stated Complaint: chest pain <James Lynn MD - Last Filed: 06/23/22 06:31> Time Seen by Provider: 06/23/22 07:17 <James Lynn MD - Last Filed: 06/23/22 06:31> Source: patient, family and EMS <James Lynn MD - Last Filed: 06/23/22 06:31> Mode of arrival: EMS <James Lynn MD - Last Filed: 06/23/22 06:31> Limitations: no limitations <James Lynn MD - Last Filed: 06/23/22 06:31> History of Present Illness HPI narrative: this is an 82-year-old gentleman presents to the emergency department via EMS with chest pain, episodic in nature epigastric location with no radiation has some mild shortness of breath with exertion with an episode nausea and vomiting with no diaphoresis currently nonsmoker, chest pain started around 10 this evening was a pressure-like sensation with bloating and epigastric pressure. Patient has a history of CAD with [place] approximately 1 year ago with no stents no CABG, currently nonsmoker, has a history of aortic stenosis with an ejection fraction of 40 to 45% with history of CHF hypertension and atrial fibrillation currently on Eliquis. Patient received 2 doses nitroglycerin per EMS which did not relieve his discomfort currently there is no fever chills his vitals are stable with no flank pain no hematuria no diarrhea or constipation. <James Lynn MD - Last Filed: 06/23/22 06:31> MD complaint: chest discomfort <James Lynn MD - Last Filed: 06/23/22 06:31> Pertinent past history: coronary artery disease <James Lynn MD - Last Filed: 06/23/22 06:31> Onset (ago): hour(s) <James Lynn MD - Last Filed: 06/23/22 06:31> Timing of current episode: episodic <James Lynn MD - Last Filed: 06/23/22 06:31> Prior episodes: Yes <James Lynn MD - Last Filed: 06/23/22 06:31> Onset: during rest <James Lynn MD - Last Filed: 06/23/22 06:31> Pain location: epigastric <James Lynn MD - Last Filed: 06/23/22 06:31> Pain radiation: none <James Lynn MD - Last Filed: 06/23/22 06:31> Severity: mild <James Lynn MD - Last Filed: 06/23/22 06:31> Quality: tightness <James Lynn MD - Last Filed: 06/23/22 06:31> Risk Factors Coronary artery disease risk factors: diabetes and hyperlipidemia <James Lynn MD - Last Filed: 06/23/22 06:31> Related Data Home Medications: Home Medications Medication Instructions Recorded Confirmed latanoprost 0.005 % eye drops 1 drp EACH EYE DAILY 06/29/20 06/23/22 amlodipine 10 mg tablet 10 mg PO DAILY 02/26/22 06/23/22 <James Lynn MD - Last Filed: 06/23/22 06:31> Allergies/Adverse Reactions: Allergies Allergy/AdvReac Type Severity Reaction Status Date / Time No Known Allergies Allergy Verified 06/23/22 07:12 <James Lynn MD - Last Filed: 06/23/22 06:31> Review of Systems Review of Systems: All systems reviewed & are unremarkable except as noted in HPI and below <James Lynn MD - Last Filed: 06/23/22 06:31> [facility] Past Medical History Medical History: Medical History Acute blood loss anemia Anemia Atrial fibrillation CKD (chronic kidney disease) stage 3, GFR 30-59 ml/min Dieulafoy lesion (hemorrhagic) of intestine DM2 (diabetes mellitus, type 2) GERD (gastroesophageal reflux disease) Glaucoma Humerus fracture Hyperlipidemia Hypertension Melena Osteoarthritis <James Lynn MD - Last Filed: 06/23/22 06:31> Surgical History Surgical History: Surgical History History of back surgery History of cataract extraction He has had back surgeries plus the neurostimulator History of removal of pigmented skin
[2022-06-23 06:26] LABS: Add Urine Microscopic? YES; Bilirubin Urine Negative (Negative); Blood Urine Trace-Intact (Negative); Color Urine Yellow (Yellow); Glucose Urine UA Negative (Negative); Ketones Urine Negative (Negative); Leukocyte Esterase Ur Negative LEU/UL (Negative); Nitrate Urine Negative (Negative); Protein Urine 3+ (Negative); Specific Grav Ur 1.025 (1.010-1.020); Urobilinogen Urine 0.2 mg/dL (0.2-1.0)
[2022-06-23 06:41] LABS: Appearance Urine Slightly Cloudy (Clear)
[2022-06-23 06:42] LABS: Amorphous Sediment Urine Heavy; Bacteria Urine 2+ /hpf; Cellular Casts Urine Present /lpf; Hyaline Casts Urine 50+ /lpf; RBC Urine 0-2 /hpf (0-2)
[2022-06-23 06:43] LABS: Mucus Urine Moderate /lpf
[2022-06-23] MEDS: FUROSEMIDE INJ 40 MG/4 ML VIAL IV PUSH (06:43)
--- NOTE | 2022-06-23 09:25 | PC.NURSE ---
Patient arrived on unit from ED in w/c accompanied by ED staff. Patient able to walk from w/c to bed without assist. Patient orientated to covid policies, visiting hours and restrictions, call light, bed controls and use of rapid response system. Patient voiced understanding. Patient denies having valuables in his possession.
[2022-06-23] MEDS: PANTOPRAZOLE SODIUM IV 40 MG VIAL IV PUSH ×2 (10:10→20:08)
[2022-06-23] MEDS: amLODIPine BESYLATE 5 MG TABLET 10 MG PO (10:13)
[2022-06-23] MEDS: ASCORBIC ACID 500 MG TABLET PO (10:14)
[2022-06-23] MEDS: carvediloL 6.25 MG TABLET PO ×2 (10:15→20:08)
[2022-06-23] MEDS: ATORVASTATIN 40 MG TABLET PO (10:17)
[2022-06-23] MEDS: CHLORTHALIDONE 25 MG TABLET PO (10:18)
[2022-06-23] MEDS: APIXABAN 2.5 MG TABLET PO ×2 (10:18→20:08)
[2022-06-23] MEDS: LATANOPROST 0.005% OP SOLN 2.5 ML BTL 1 DROP EACH EYE (10:19)
[2022-06-23] MEDS: TERAZOSIN HCL 5 MG CAPSULE BY MOUTH (10:19)
[2022-06-23 14:51] LABS: Troponin I 87.5 ng/L (0.00-60.4)
--- NOTE | 2022-06-23 15:06 | PC.NURSE ---
Patient's latest labs show an elevated troponin. INDUSTRIAL METHODS CONSULTANT notified of change in lab findings. Patient notified, as well as his family. 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 Patient resting comfortably and denies any change in location or nature of his pain.
--- NOTE | 2022-06-23 15:09 | PC.NURSE ---
Notified by lab of critical trop level. MAINTENANCE LEADER notified of results. New order received for EKG and to discuss options with patient. Patient requested to be transferred to [facility]-location of his pumper head.
--- NOTE | 2022-06-23 15:12 | ECG_ITS ---
Measurements Intervals [place] Rate: 74 P: 72 [place]: 248 QRS: 52 QRSD: 93 T: 9 QT: 396 QTc: 441 Interpretive Statements SINUS RHYTHM WITH FIRST DEGREE AV BLOCK NONSPECIFIC ST & T-WAVE ABNORMALITY COMPARED TO ECG 06/23/2022 04:25:08 NO SIGNIFICANT CHANGES Electronically Signed On 06-24-2022 12:53:34 MILL OPERATOR by James Salcedo M.D.
--- NOTE | 2022-06-23 15:58 | PC.NURSE ---
CRIME ANALYST called. Patient has been accepted to [facility] on step down unit by Dr. Conklin. requested ER doctor give report for patient.
--- NOTE | 2022-06-23 16:21 | P.PNCROSS_ITS ---
Event Note Event Note Event Note: Spoke with Cara and was informed Trop was elevated now and patient wanted to be transferred to [place] for NonStemi For Trop normal second elevated Called and spoke with Feroz and requested a bed patient grinder set up operator gear tool is there and he would like to be transferred informed Feroz I have not laid eye on the patient and they would need to call Dr. Alfaro for Report. Dr. Alfaro called to be informed that they would be calling him for report. EKG shows SR with Second degree blcok and non specific ST changes no ST elevation that I could see.
--- NOTE | 2022-06-23 17:49 | PC.NURSE ---
Accepting TRACK GRINDER at [place] received report from ER doctor
--- NOTE | 2022-06-23 18:04 | PC.NURSE ---
Spoke with powerhouse tender. Patient will be going to room 213 at [place]
--- NOTE | 2022-06-23 18:17 | PC.NURSE ---
Report called to Sal[facility] at [facility]. Patient going by [facility] to [facility] room 213.
[2022-06-23] MEDS: MORPHINE SULFATE (*CRX) 2 MG/ML INJ IV PUSH (19:18)
--- NOTE | 2022-06-23 19:50 | PM.SD2 ---
Same Day Admit/Disch: HPI History of Present Illness Chief complaint: chest pain CHF CHRONIC RENAL FAILURE Narrative: Villa Rush is a 82 year old male ?this is an 82-year-old gentleman presents to the emergency department via EMS with chest pain, episodic in nature epigastric location with no radiation has some mild shortness of breath with exertion with an episode nausea and vomiting with no diaphoresis currently nonsmoker, chest pain started around 10 this evening was a pressure-like sensation with bloating and epigastric pressure.? Patient has a history of CAD with [place] approximately 1 year ago with no stents no CABG, currently nonsmoker, has a history of aortic stenosis with an ejection fraction of 40 to 45% with history of CHF hypertension and atrial fibrillation currently on Eliquis.? Patient received 2 doses nitroglycerin per EMS which did not relieve his discomfort currently there is no fever chills his vitals are stable with no flank pain no hematuria no diarrhea or constipation.?<James Lynn MD - Last Filed: 06/23/22 06:31> MD complaint: PMF Past Medical History Medical History Acute blood loss anemia Anemia Atrial fibrillation CKD (chronic kidney disease) stage 3, GFR 30-59 ml/min Dieulafoy lesion (hemorrhagic) of intestine DM2 (diabetes mellitus, type 2) GERD (gastroesophageal reflux disease) Glaucoma Humerus fracture Hyperlipidemia Hypertension Melena Osteoarthritis Systolic CHF Echo on 02/14/2022 was read as an EF of 40 - 45 Surgical History Surgical History History of back surgery He has had back surgeries plus the neurostimulator. However the patient had an infection in the neurostimulator was taken out History of cataract extraction History of removal of pigmented skin lesion From his left forehead which was actinic keratosis Family History Family History Mother Tuberculosis Father Alcoholism Sibling Lung disease Social History Social History Social History: The patient is and lives with his . He has 2 children. He is retired from the [employer]. 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 His is the durable power real estate attorney for healthcare. The patient is a former smoker and denies any alcohol marijuana or illicit drugs. Code status full code. However the patient does not want to live in a vegetative state. Smoking packs per day: 2 Smoking cigarettes per day: 40.0 Years smoked: 35 Smoking pack-years: 70.00 Smoking status: Former smoker Tobacco type: cigarettes Second hand tobacco smoke exposure: Yes Smoking end date: 06/23/89 Additional smoking assessment comments: 1989 Alcohol intake: former Drinks per week: 2 Substance use: never Substance use type: does not use Lack of Transportation: No Lack of Food: Never True Current Housing: I Have Housing Concerned About Future Housing: No Difficulty Paying Gas/Electric Bills: YES Difficulty Paying for Meds: No Currently Unemployed: No Education: High School Diploma/GED Difficulty w/ Childcare or Family Care: No Living arrangements: with family Additional living arrangements comments: . Occupation/Education: retired Spiritual care concerns: No Same Day Admit/Disch: Med Pre-admit Medications Home Medications Medication Instructions Recorded Confirmed Type latanoprost 0.005 % eye drops 1 drp EACH EYE DAILY 06/29/20 06/23/22 History acetaminophen 500 mg tablet 500 mg PO TID PRN pain #90 tabs 02/22/22 06/23/22 Rx apixaban 2.5 mg tablet (Eliquis) 2.5 mg PO Q12HR #60 tabs 02/22/22 06/23/22 Rx atorvastatin 40 mg tablet 40 mg PO DAILY #30 tabs 02/22/22 06/23/22 Rx chlorthalidone 25 mg tablet 25 mg PO EVERY OTHER DAY #15 tabs 02/22/22 06/23/22 Rx
[2022-06-23] MEDS: MIRTAZAPINE 15 MG TABLET PO (20:08)
[2022-06-23 21:22] LABS: Troponin I 88.7 ng/L (0.00-60.4)
--- NOTE | 2022-06-23 21:25 | PC.NURSE ---
At 2114 [facility] here to transport pt to [facility], ot able to transfer with SBA, pt left in stable condition, at 2124 update called to Kenia MCDANIEL at [facility] [phone].
== END 2022-06-23 21:15 | disposition short-term general hospital (02) ==
LOC: CHSED 08:58 → CHS2ND 08:59
PROVIDERS: Emergency Medicine; Nurse Practitioner Family; Admitting Provider Internal Medicine; Emergency Provider Family Medicine; PCP Family Medicine; Visit Provider Internal Medicine
DX: R07.9 Chest pain, unspecified (principal); I13.0 Hypertensive heart and chronic kidney disease with heart failure and stage 1 through stage 4 chronic kidney disease, or unspecified chronic kidney disease; I50.20 Unspecified systolic (congestive) heart failure; I48.20 Chronic atrial fibrillation, unspecified; I35.0 Nonrheumatic aortic (valve) stenosis; I25.10 Atherosclerotic heart disease of native coronary artery without angina pectoris; N17.9 Acute kidney failure, unspecified; N18.30 Chronic kidney disease, stage 3 unspecified; E11.22 Type 2 diabetes mellitus with diabetic chronic kidney disease; R77.8 Other specified abnormalities of plasma proteins; E78.5 Hyperlipidemia, unspecified; K21.9 Gastro-esophageal reflux disease without esophagitis; M19.90 Unspecified osteoarthritis, unspecified site; H40.9 Unspecified glaucoma; I25.2 Old myocardial infarction; Z79.01 Long term (current) use of anticoagulants; Z87.891 Personal history of nicotine dependence
CPT/HCPCS: 36415; 71046; 71275; 80053; 81001; 83690; 83880; 84484; 85025; 85380; 85610; 85730; 93005; 96365; 96374; 96375; 99285; A9270; C9113; G0378; J0131; J1940; J2270; Q9967

== ENCOUNTER 2022-06-23 22:15 | Inpatient (IN) | payer MEDICARE, OTHER, SELFPAY ==
[2022-06-23 22:21] VITALS: PULSE 69
--- NOTE | 2022-06-23 22:22 | PC.NURSE ---
This patient, Villa Rush, was admitted to IMU Room 213-01 on 06/23/22 at 2155. Patient/family oriented to hospital policies and general routines including ID bracelet, bed and alarms, visiting hours, pain management, procedures, bathroom and other care routines, personal items, smoking policy, room service/diet, and visiting hours. Information on how to activate the Rapid Response Team has been discussed. Patient/Family are encouraged to report perceived risks to care and to ask questions if they do not understand what they are told or what they should do. Monet Walton SALES VENDOR notified that patient has arrived.
[2022-06-23 22:26] VITALS: BMI 22.0
[2022-06-23 22:27] VITALS: BP 139/55; PULSE 73; RESP 20; TEMP 36.6; O2SAT 97
--- NOTE | 2022-06-23 23:01 | PM.IMHP ---
H&P: HPI History of Present Illness Date/Time: 06/23/22 23:01 Chief Complaint: Chest pain Narrative: This is a 82-year-old male patient who came to the emergency room last night at [facility]. Patient was brought there via EMS the patient was having episodic chest pain. Patient stated was more like a pressure that is pretty constant. He stated that he has had some nausea and vomiting but the pain did not radiate anywhere. He stated that he does have acid reflux and with acid reflux he has a lot of belching and a lot of gas but that did not occur with this event. The patient stated the 7 was different from when he has acid reflux. The patient has congestive heart failure with an ejection fraction of 40-45%. The patient also has a history of atrial fibrillation on Eliquis. The patient received 2 doses of nitroglycerin via [facility] prior to going to [facility]. His chest pressure started yesterday around 10 in the evening and he stated it was a pressure type of discomfort. He stated he has a history of coronary artery disease and according to the patient, he had a myocardial infarction a year ago but did not receive any stents or open heart surgery. The patient was initially a DNR but stated that he would like to be resuscitated for short period time but not live in a vegetative state. Labs from [facility] this morning H&H 10.4 and 32.3. Which is his baseline. His D-dimer was elevated to 0.84. His creatinine is 1.59 which is improved from his previous levels. Patient's troponin at [facility] on a scale from 0-60.4 was nonreactive for his 1st troponin however his 2nd troponin was elevated to 87.5 and 88.7. After reviewing previous labs the patient has chronically elevated troponins. However [facility] troponin level is on a scale from 0-0.034 with a previous some troponin of 0.380. The patient does have a history of chronic kidney disease as well as CHF. The [facility] physician was concerned that the patient continue to have chest pain and his troponin increased. The patient was transferred to [facility] for cardiology consult. The patient was given more morphine EN route to [facility]. The patient appears to be stable and is very talkative. His BNP was noted to be a 5569. The patient is being admitted to observation status on the date of service of 06/23/2022. Review of Systems Review of Systems: See HPI All systems reviewed & are unremarkable except as noted in HPI and below Constitutional: Constitutional: Reports as per HPI and Reports no additional constitutional complaints Eyes: Eyes: Reports as per HPI and Reports no additional eye complaints ENT: Reports system reviewed and no additional complaints, except as documented and Reports Normal hearing present Cardiovascular: Cardiovascular: Reports no additional cardiovascular complaints Respiratory: Respiratory: Reports no additional respiratory complaints and Reports no additional respiratory complaints Gastrointestinal: Gastrointestinal: Reports as per HPI and Reports no additional gastrointestinal complaints Musculoskeletal: Musculoskeletal: Reports no additional musculoskeletal complaints Integumentary/Breasts: Skin/Breast: Reports system reviewed and no additional complaints, except as docu and Reports as per HPI Neurologic: Reports system reviewed and no additional complaints, except as documented, Reports as per HPI and Reports Normal hearing present Psychiatric: Psychiatric: Reports no additional psychiatric complaints and Reports as per HPI Endocrine: Endocrine: Reports no additional endocrine complaints Hematologic/Lymphatic: Hematologic/Lymphatic: Reports no additional hematologic/lymphatic complaints Allergic/Immunologic: Allergic/Immunologic: Reports no additional allergic/immunologic complaints [facility] Past Medical History Medical History (Updated 06/23/22 @ 23:15 by Monet Walton NP) Acute blood loss anemia Anemia
[2022-06-23 23:25] VITALS: BP 131/57; PULSE 68; RESP 20; TEMP 36.4; O2SAT 98
[2022-06-23 23:26] LABS: Glucose Point of Care 131 mg/dl (65-105)
[2022-06-23 23:50] LABS: Troponin I 0.112 ng/mL (0.000-0.034)
[2022-06-24] VITALS (20 sets, daily range): BP systolic 113–141; BP diastolic 52–60; PULSE 65–98; RESP 18–20; TEMP 36.6–37.1; O2SAT 94–98
[2022-06-24 02:52] LABS: Troponin I 0.133 ng/mL (0.000-0.034)
[2022-06-24 05:08] LABS: Basophils Percent Auto 0.2 % (0.2-1.2); Eosinophils Absolute Auto 0.2 K/mm3 (0-0.3); Hematocrit 34.6 % (42.0-52.0); Hemoglobin 11.3 g/dL (14.0-18.0); Immature Granulocyte Absolute 0.04 K/mm3 (0.00-0.031); Immature Granulocyte Percent A 0.3 % (0-0.5); Lymphocytes Absolute Auto 1.17 K/mm3 (0.9-3.2); Lymphocytes Percent Auto 9.7 % (18.3-44.2); Mean Corpuscular HGB Conc 32.7 g/dl (32-36); Mean Corpuscular Hemoglobin 31.7 pg (26-34); Mean Corpuscular Volume 96.9 fl (80-100); Mean Platelet Volume 10.1 fl (7.4-10.4); Monocytes Absolute Auto 1.1 K/mm3 (0.1-0.6); Monocytes Percent Auto 9.3 % (2.6-8.5); Neutrophils Absolute Auto 9.5 K/mm3 (1.3-6.7); Neutrophils Percent Auto 78.5 % (45.5-73.1); Platelet Count Result 182 k/mm3 (150-375); Red Blood Count 3.57 M/mm3 (4.6-6.20); Red Cell Distribution Width 13.9 % (11.5-14.5)
[2022-06-24 05:19] LABS: Alanine Aminotransferase 18 U/L (6-50); Albumin Level 4.2 g/dL (3.5-5.1); Alkaline Phosphatase 68 U/L (38-126); Anion Gap 5 mmol/L (8-16); Aspartate Amino Transferase 24 U/L (17-59); Bilirubin,Total 0.7 mg/dL (0.2-1.3); Blood Urea Nitrogen 28 mg/dL (9-20); Calcium 8.8 mg/dL (8.4-10.2); Carbon Dioxide 32 mmol/L (22-30); Chloride 97 mmol/L (98-107); Estimated CRCL calculation 31 ml/min; Estimated Glomerular Filt Rate 42; Glucose 122 mg/dL (65-110); Phosphorus 3.8 mg/dL (2.5-4.5); Potassium 3.6 mmol/L (3.4-5.0); Sodium 134 mmol/L (137-145)
[2022-06-24 05:20] LABS: Lactic Acid Reflex 0.7 mmol/L (0.7-2.0)
[2022-06-24 06:04] LABS: Thyroid Stimulating Hormone Reflex 0.514 uIU/mL (0.465-4.68)
[2022-06-24 07:41] LABS: Hemoglobin A1C 6.1 % (<5.7)
--- NOTE | 2022-06-24 10:59 | PM.IMPN ---
Progress Note: A&P Assessment and Plan (1) Chest pain: Code(s): R07.9 - Chest pain, unspecified Status: Acute Assessment and Plan: no further chest pain. Troponin peaked at 0.13. EKG reviewed personally and showing normal sinus rhythm with nonspecific ST T wave changes (concur with Cardiology). Continue Coreg and Lipitor. Add aspirin. Cardiology consult. Recent stress test results were noted from February 2022. (2) Systolic CHF: Code(s): I50.20 - Unspecified systolic (congestive) heart failure Status: Acute Assessment and Plan: Patient with chronic systolic CHF. EF was 40-45% from an echo in February. patient euvolemic at this time. He is on chlorthalidone for diuretics. (3) Atrial fibrillation: Code(s): I48.91 - Unspecified atrial fibrillation Status: Acute Assessment and Plan: Patient has a history of atrial fibrillation. Currently in normal sinus rhythm. Continue Coreg. Will hold Eliquis until he can be determined if he is going to have a heart catheterization. (4) Chronic kidney disease (CKD) stage G3b/A3, moderately decreased glomerular filtration rate (GFR) between 30-44 mL/min/1.73 square meter and albuminuria creatinine ratio greater than 300 mg/g: Code(s): N18.32 - Chronic kidney disease, stage 3b Status: Acute Assessment and Plan: His baseline creatinine is 2 - 2.3. Creatinine on admission here was 1.5 and on repeat is about the same. Continue to monitor. (5) DM2 (diabetes mellitus, type 2): Code(s): E11.9 - Type 2 diabetes mellitus without complications Status: Acute Assessment and Plan: A1c 6.1. The patient's blood glucose was reviewed on 06/24 Glucose remains well controlled. Continue AccuCheks covering with sliding scale. Hypoglycemia protocol available as needed. Continue to monitor (6) GERD (gastroesophageal reflux disease): Qualifiers: Esophagitis presence: without esophagitis Qualified Code(s): K21.9 - Gastro-esophageal reflux disease without esophagitis Code(s): K21.9 - Gastro-esophageal reflux disease without esophagitis Status: Acute Assessment and Plan: Continue with omeprazole (7) Hyperlipidemia: Code(s): E78.5 - Hyperlipidemia, unspecified Status: Acute Assessment and Plan: LFTs okay. Continue with atorvastatin (8) Hypertension: Qualifiers: Hypertension type: primary hypertension Qualified Code(s): I10 - Essential (primary) hypertension Code(s): I10 - Essential (primary) hypertension Status: Chronic Assessment and Plan: BP stable. Continue with amlodipine, Coreg, chlorthalidone, and terazosin (9) Anemia: Code(s): D64.9 - Anemia, unspecified Status: Acute Assessment and Plan: H&H is stable could be related to his chronic renal failure. Subjective Date/time seen: 06/24/22 10:59 Interval history: 82yo male with CKD, CAD and AFib here for chest pain. patient slept well last night. No complaints of chest pain at this time. He denies that the chest pain was pleuritic or positional. Chest pain came on at rest. He does complain of weight loss of about 20 lb over the past year. It is due to lack of appetite. He was given a appetite stimulant recently and this has helped. He denies any melena or hematochezia. No hematuria. Colonoscopy about 6 years ago was negative. He denies any abdominal pain after eating. No diaphoresis, night sweats or chills. Exam Narrative: AF 136/55 73 20 96% ra Gen - NARD Chest - CTA bilaterally, nml RR CV - RRR S1/S2 with 2/6 systolic murmur loudest LLSB. Telemetry showing no significant dysrhythmias Abd - Soft, NT/ND, Positive BS. 2+ femoral pulses with bruits. +abd bruits Ext - No pedal edema Psych - Nml mood and affect Skin - Warm and dry Objective Data Vital Signs Vital Signs: Vital Signs - 24 hr 0
--- NOTE | 2022-06-24 11:00 | ECG_ITS ---
Measurements Intervals [place] Rate: 71 P: 66 [place]: 224 QRS: 43 QRSD: 94 T: 192 QT: 383 QTc: 418 Interpretive Statements SINUS RHYTHM WITH FIRST DEGREE AV BLOCK NONSPECIFIC ST AND T-WAVE CHANGE CONSIDER ISCHEMIA ABNORMAL ECG COMPARED TO ECG 06/23/2022 15:12:22 NO SIGNIFICANT CHANGES Electronically Signed On 06-24-2022 12:51:31 MICROFILM PROCESSOR by James Salcedo M.D.
[2022-06-24 11:37] LABS: Glucose Point of Care 126 mg/dl (65-105)
[2022-06-24] MEDS: amLODIPine BESYLATE 5 MG TABLET 10 MG PO (11:39)
[2022-06-24] MEDS: carvediloL 6.25 MG TABLET PO ×2 (11:41→20:14)
[2022-06-24] MEDS: ATORVASTATIN 40 MG TABLET PO (11:41)
[2022-06-24] MEDS: ASCORBIC ACID 500 MG TABLET PO (11:42)
[2022-06-24] MEDS: CHLORTHALIDONE 25 MG TABLET PO (11:44)
[2022-06-24] MEDS: CHOLECALCIFEROL 1,000 UNITS TABLET 1000 UNITS PO (11:44)
[2022-06-24] MEDS: PANTOPRAZOLE 40 MG TABLET PO (11:45)
[2022-06-24] MEDS: FERROUS SULFATE 324 MG TABLET PO (11:45)
[2022-06-24] MEDS: TERAZOSIN HCL 5 MG CAPSULE PO (11:46)
[2022-06-24] MEDS: LATANOPROST 0.005% OP SOLN 2.5 ML BTL 1 DROP EACH EYE (11:46)
--- NOTE | 2022-06-24 12:08 | PM.CNCAR ---
Assessment and Plan Assessment and plan (1) Chest pain: Code(s): R07.9 - Chest pain, unspecified Status: Acute Plan This is an 82-year-old man who has presumed coronary artery disease, significant aortic stenosis and paroxysmal atrial fibrillation. He presented to the hospital in [place] again with some ischaemic type substernal chest pain. His troponin levels are modestly elevated but flat, not really indicative of acute coronary syndrome and attributable to his chronic kidney disease. The patient should undergo right and left heart catheterization for evaluation of his coronary and valvular heart disease. He understands this and is agreeable. This procedure could possibly happen tomorrow later in the day or Friday I will defer the timing of this to my partner, Dr. Elliott in terms of discontinuance/withdrawal of his apixaban. He had apixaban than 24 hours ago so will be imprudent to proceed with that procedure today James Salcedo MD [facility] History of Present Illness History of Present Illness Consult date/time: 06/24/22 12:08 Reason For Visit: chest pain Narrative: This is an 82-year-old man unknown to me but apparently known to my partner, Dr. Elliott I am seeing at the request of the hospitalist after he was admitted here yesterday evening because of chest pain. The patient was in his usual state of health at home when he started to have pressure-like low substernal chest pain yesterday in his home. The discomfort was present for a number of hours it was waxing and waning he was trying to find a more comfortable position to get into to obtain relief but was unable to. Eventually he decided he had better inform his family that he was having the symptoms and he was brought to the emergency room in [place] where he was evaluated and admitted to the hospital for short time. Because of the elevation in troponin he was then transferred here to this hospital for further evaluation and management. He is otherwise comfortable at this time and does not have any current complaints. His troponin levels here are 0.1 and flat. His electrocardiogram shows sinus rhythm with some mild nonspecific ST segment changes. No apparent acute current of injury. The patient is known to my partner, Dr. Elliott with a recent admission here with clinical evidence of a non ST elevation SD. the patient at that time preferred a conservative approach to his care and he was treated medically. He was also found by echo to have significant aortic valve stenosis and he did have an episode of atrial fibrillation. For this reason he was also treated with anticoagulation treatment. While he was anticoagulated he did have a GI bleed he came in for an outpatient catheterization with a hemoglobin of just over 5 g the procedure was obviously canceled and he was admitted to the hospital where he underwent evaluation and from what I can see a AVM was cauterized which was a presumed to be the source of bleeding. After a period of stability systemic anticoagulation was resumed. He was last seen in our office in follow-up and was stable at that time and longitudinal follow-up of his coronary and aortic valve disease was planned/recommended. The echocardiogram previously has demonstrated a mean gradient across the aortic valve 30 mmHg and calculated valve area of 0.9 cm2. The patient's last dose of apixaban was yesterday morning. Review of Systems Constitutional: Constitutional: Reports lethargy Eyes: Eyes: Reports no additional eye complaints ENT: Reports system reviewed and no additional complaints, except as documented Cardiovascular: Cardiovascular: Reports as per HPI and Reports chest pain Respiratory: Respiratory: Reports dyspnea on exertion Gastrointestinal: Comments: Patient had an episode of watery diarrhea yesterday Musculoskeletal: Musculoskeletal: Reports back pain Comments: Chronic back pain Integumentary/Breasts: Skin/Breast: Reports syste
[2022-06-24] MEDS: ASPIRIN 81 MG CHEWABLE TABLET PO (14:43)
[2022-06-24 16:36] LABS: Glucose Point of Care 134 mg/dl (65-105)
[2022-06-24 20:11] LABS: Glucose Point of Care 159 mg/dl (65-105)
[2022-06-24] MEDS: MIRTAZAPINE 15 MG TABLET PO (20:15)
[2022-06-25] VITALS (18 sets, daily range): BP systolic 107–143; BP diastolic 43–59; PULSE 61–79; RESP 16–118; TEMP 36.1–36.9; O2SAT 92–99
[2022-06-25 05:01] LABS: Anion Gap 7 mmol/L (8-16); Blood Urea Nitrogen 38 mg/dL (9-20); Calcium 8.6 mg/dL (8.4-10.2); Carbon Dioxide 30 mmol/L (22-30); Chloride 100 mmol/L (98-107); Estimated CRCL calculation 24 ml/min; Estimated Glomerular Filt Rate 30; Glucose 106 mg/dL (65-110); Potassium 3.5 mmol/L (3.4-5.0); Sodium 137 mmol/L (137-145)
[2022-06-25 08:19] LABS: Glucose Point of Care 108 mg/dl (65-105)
[2022-06-25] MEDS: ASCORBIC ACID 500 MG TABLET PO (09:28)
[2022-06-25] MEDS: ASPIRIN 81 MG CHEWABLE TABLET PO (09:28)
[2022-06-25] MEDS: ATORVASTATIN 40 MG TABLET PO (09:28)
[2022-06-25] MEDS: carvediloL 6.25 MG TABLET PO ×2 (09:28→20:08)
[2022-06-25] MEDS: CHOLECALCIFEROL 1,000 UNITS TABLET 1000 UNITS PO (09:28)
[2022-06-25] MEDS: FERROUS SULFATE 324 MG TABLET PO (09:28)
[2022-06-25] MEDS: amLODIPine BESYLATE 5 MG TABLET 10 MG PO (09:28)
[2022-06-25] MEDS: PANTOPRAZOLE 40 MG TABLET PO (09:29)
[2022-06-25] MEDS: TERAZOSIN HCL 5 MG CAPSULE PO (09:29)
[2022-06-25] MEDS: LATANOPROST 0.005% OP SOLN 2.5 ML BTL 1 DROP EACH EYE (09:29)
--- NOTE | 2022-06-25 09:29 | PM.PNCARD ---
Progress Note: A&P Assessment and Plan (1) Chest pain: Code(s): R07.9 - Chest pain, unspecified Status: Acute Assessment and Plan: His troponin levels are modestly elevated but flat, not really indicative of acute coronary syndrome and attributable to his chronic kidney disease.? The patient should undergo right and left heart catheterization for evaluation of his coronary and valvular heart disease. Will plan for cardiac cath on Monday 06/26 to allow washout of Apixaban. Patient to be NPO at midnight.? Continue with statin, beta emmanuel (2) Systolic CHF: Code(s): I50.20 - Unspecified systolic (congestive) heart failure Status: Acute Assessment and Plan: Chronic. Compensated. LVEF 40-45% on TTE 02/2022. (3) Atrial fibrillation: Code(s): I48.91 - Unspecified atrial fibrillation Status: Acute Assessment and Plan: In sinus rhythm. Holding NOAC in preparation for cardiac cath (4) Chronic kidney disease (CKD) stage G3b/A3, moderately decreased glomerular filtration rate (GFR) between 30-44 mL/min/1.73 square meter and albuminuria creatinine ratio greater than 300 mg/g: Code(s): N18.32 - Chronic kidney disease, stage 3b Status: Acute Assessment and Plan: Monitor renal function closely (5) Elevated troponin: Code(s): R77.8 - Other specified abnormalities of plasma proteins Status: Acute Assessment and Plan: His troponin levels are modestly elevated but flat, not really indicative of acute coronary syndrome and attributable to his chronic kidney disease. (6) Aortic stenosis: Code(s): I35.0 - Nonrheumatic aortic (valve) stenosis Status: Acute Assessment and Plan: TTE 02/2022: There is moderate-severe with mean gradient of 30mmHg and PATRICE of 0.97cm2. Subjective Date/time seen: 06/25/22 09:29 Interval history: Reason for visit: Chest pain HPI: This is an 82-year-old man unknown to me but apparently known to my partner, Dr. Elliott I am seeing at the request of the hospitalist after he was admitted here yesterday evening because of chest pain.? The patient was in his usual state of health at home when he started to have pressure-like low substernal chest pain yesterday in his home.? The discomfort was present for a number of hours it was waxing and waning he was trying to find a more comfortable position to get into to obtain relief but was unable to.? Eventually he decided he had better inform his family that he was having the symptoms and he was brought to the emergency room in [place] where he was evaluated and admitted to the hospital for short time.? Because of the elevation in troponin he was then transferred here to this hospital for further evaluation and management.? He is otherwise comfortable at this time and does not have any current complaints.? His troponin levels here are 0.1 and flat.? His electrocardiogram shows sinus rhythm with some mild nonspecific ST segment changes.? No apparent acute current of injury.? The patient is known to my partner, Dr. Elliott with a recent admission here with clinical evidence of a non ST elevation MS. the patient at that time preferred a conservative approach to his care and he was treated medically.? He was also found by echo to have significant aortic valve stenosis and he did have an episode of atrial fibrillation.? For this reason he was also treated with anticoagulation treatment.? While he was anticoagulated he did have a GI bleed he came in for an outpatient catheterization with a hemoglobin of just over 5 g the procedure was obviously canceled and he was admitted to the hospital where he underwent evaluation and from what I can see a AVM was cauterized which was a presumed to be the source of bleeding.? After a period of stability systemic anticoagulation was resumed.? He was last seen in our office in follow-up and was stable at that time and longitudinal follow-up of his coronary a
--- NOTE | 2022-06-25 10:32 | PM.IMPN ---
Progress Note: A&P Assessment and Plan (1) Chest pain: Code(s): R07.9 - Chest pain, unspecified Status: Acute Assessment and Plan: No further chest pain. Troponin peaked at 0.13. EKG showing normal sinus rhythm with nonspecific ST T wave changes. Continue Coreg, ASA and Lipitor. Recent stress test results were noted from February 2022. Cardiology consulted. Plan for RHC/LHC tomorrow. (2) Systolic CHF: Code(s): I50.20 - Unspecified systolic (congestive) heart failure Status: Acute Assessment and Plan: Patient with chronic systolic CHF. EF was 40-45% from an echo in February. Patient euvolemic at this time. He is on chlorthalidone for diuretics but will hold given the rise in his Cr. Follow. (3) Atrial fibrillation: Code(s): I48.91 - Unspecified atrial fibrillation Status: Acute Assessment and Plan: Patient has a history of atrial fibrillation. Currently in normal sinus rhythm. Continue Coreg. Eliquis on hold (4) Chronic kidney disease (CKD) stage G3b/A3, moderately decreased glomerular filtration rate (GFR) between 30-44 mL/min/1.73 square meter and albuminuria creatinine ratio greater than 300 mg/g: Code(s): N18.32 - Chronic kidney disease, stage 3b Status: Acute Assessment and Plan: His baseline creatinine is 2 - 2.3. Creatinine on admission here was 1.5 but back up to 2.1 today which is more baseline. Will hold chlortalidone for now. May not be the best choice for him at discharge1. Continue to monitor. (5) DM2 (diabetes mellitus, type 2): Code(s): E11.9 - Type 2 diabetes mellitus without complications Status: Acute Assessment and Plan: A1c 6.1. The patient's blood glucose was reviewed on 06/25 Glucose remains well controlled. Continue AccuCheks covering with sliding scale. Hypoglycemia protocol available as needed. Continue to monitor (6) GERD (gastroesophageal reflux disease): Qualifiers: Esophagitis presence: without esophagitis Qualified Code(s): K21.9 - Gastro-esophageal reflux disease without esophagitis Code(s): K21.9 - Gastro-esophageal reflux disease without esophagitis Status: Acute Assessment and Plan: Continue with omeprazole (7) Hyperlipidemia: Code(s): E78.5 - Hyperlipidemia, unspecified Status: Acute Assessment and Plan: LFTs okay. Continue with atorvastatin (8) Hypertension: Qualifiers: Hypertension type: primary hypertension Qualified Code(s): I10 - Essential (primary) hypertension Code(s): I10 - Essential (primary) hypertension Status: Chronic Assessment and Plan: BP stable. Continue with amlodipine, Coreg and terazosin (9) Anemia: Code(s): D64.9 - Anemia, unspecified Status: Acute Assessment and Plan: H&H is stable could be related to his chronic renal failure. Subjective Date/time seen: 06/25/22 10:32 Interval history: 82yo male with CKD, CAD and AFib here for chest pain. Patient feels well today. Slept well last night. No chest pain. No shortness of breath. Voiding well. Exam Narrative: AF 143/59 79 16 92% ra Gen - NARD Chest - CTA bilaterally, nml RR CV - RRR S1/S2 with 2/6 systolic murmur loudest LLSB. Telemetry showing no significant dysrhythmias Abd - Soft, NT/ND, Positive BS. Ext - No pedal edema Psych - Nml mood and affect Skin - Warm and dry Objective Data Vital Signs Vital Signs: Vital Signs - 24 hr 06/24/22 11:41 06/24/22 12:01 06/24/22 12:00 Temperature 98.3 F Pulse Rate 76 76 Respiratory Rate 20 Blood Pressure 128/52 L Pulse Oximetry 96 96 Oxygen Delivery Room Air 06/24/22 12:00 06/24/22 14:00 06/24/22 16:49 Temperature 98.8 F Pulse Rate 98 76 71 Respiratory Rate 18 Blood Pressure 113/52 L Pulse Oximetry 94 Oxygen Delivery 06/24/22 16:00 06/24/22 16:00 06/24/22 18:00 Tempera
[2022-06-25 12:12] LABS: Glucose Point of Care 155 mg/dl (65-105)
[2022-06-25 16:52] LABS: Glucose Point of Care 97 mg/dl (65-105)
[2022-06-25] MEDS: MIRTAZAPINE 15 MG TABLET PO (20:08)
[2022-06-25 20:15] LABS: Glucose Point of Care 130 mg/dl (65-105)
[2022-06-25] MEDS: SODIUM CHLORIDE 0.9% IV 500 ML 100 ML IV CONT (20:31)
[2022-06-26] VITALS (17 sets, daily range): BP systolic 120–146; BP diastolic 38–95; PULSE 60–72; RESP 14–20; TEMP 36.4–37; O2SAT 93–100
--- NOTE | 2022-06-26 | ECHO_ITS ---
Patient Info Name: Villa Rush Age: 82 years : 1940 Gender: Male Ht: 69 in Wt: 148 lbs BSA: 1.81 m2 HR: 65 bpm BP: 136 / 52 mmHg Heart Rhythm: Sinus Rhythm Technical Quality: Fair Exam Date: 06/26/2022 11:06 AM Exam Location: [facility] Pulmonary Patient Status: Inpatient Admit Date: 06/24/2022 Staff Ordering Physician: Sofi Elliott MD (wagner/ramo) Financial Compliance Manager: Meghna Cormier RDCS Attending Provider: Rashaun Ross MD Referring Physician: Earl PLATT; Exam Type: CA echo dop color flow w con Study Info Indications - re-eval LVEF; assess severity of Complete two-dimensional, color flow and Doppler transthoracic echocardiogram is performed with contrast to opacify the left ventricle and to improve the deliniation of the left ventricle endocardial borders. Contrast/Agitated Saline Contrast/Ag. Saline: Definity Amount: 3.00 ml Administered By: Meghna Cormier RDCS Existing IV Access: Yes IV Access Condition: patent with no signs of infiltration History/Risk Factors Hypertension: Yes Dyslipidemia: No Congenital Heart Disease (CHD): No Diabetic Therapy: Oral Peripheral Arterial Disease (PAD): No Myocardial Infarction (SD): No Chronic Lung Disease: No Obesity: No Renal Disease: Yes Coronary Artery Disease (CAD) No Congestive Heart Failure (CHF): No Cardiomyopathy/LV Systolic Dysfunction: No Diabetes Mellitus: Type II COPD: No Tobacco Use: Former Cerebrovascular Disease: No Family History: Diabetes Mellitus Deep Vein Thrombosis (DVT): None Dialysis: None Frailty Scale (CSHA): 4: Vulnerable Cardiac Arrest: No Summary 1. Left ventricular chamber dimension is normal. 2. Left ventricular systolic function is normal, estimated at >70%. 3. The left ventricular diastolic function is grade I diastolic dysfunction. 4. Right ventricular systolic function is normal. 5. There is severe aortic valve calcification. 6. The aortic valve is probable trileaflet. 7. There is severe aortic valve stenosis with a peak velocity of 391.82 cm/s, mean gradient of 35 mmHg, and aortic valve area of 0.60 cm2. 8. The mitral valve annulus is mildly calcified. Left Ventricle Left ventricular chamber dimension is normal. Left ventricular systolic function is normal, estimated at >70%. The left ventricular diastolic function is grade I diastolic dysfunction. Right Ventricle Right ventricular chamber dimension is normal. Right ventricular systolic function is normal. Left Atria Left atrial chamber dimension is normal. Right Atria Right atrial chamber dimension is normal. Aortic Valve The aortic valve is probable trileaflet. There is severe aortic valve stenosis with a peak velocity of 391.82 cm/s, mean gradient of 35 mmHg, and aortic valve area of 0.60 cm2. There is no aortic valve regurgitation. There is severe aortic valve calcification. Pulmonic Valve The pulmonic valve is not well visualized. Mitral Valve There is no mitral valve stenosis. There is trace mitral valve regurgitation. The mitral valve annulus is mildly calcified. Tricuspid Valve There is no significant tricuspid valve stenosis. There is trace tricuspid valve regurgitation. Pericardium/Pleural There is trivial pericardial effusion. Inferior Vena Cava Dilated inferior vena cava with >50% collapse upon inspiration consisten
[2022-06-26] MEDS: SODIUM CHLORIDE 0.9% IV 500 ML 100 ML IV CONT (02:58)
[2022-06-26 05:00] LABS: Basophils Percent Auto 0.5 % (0.2-1.2); Eosinophils Absolute Auto 0.5 K/mm3 (0-0.3); Eosinophils Percent Auto 6.6 % (0-4.4); Hematocrit 31.5 % (42.0-52.0); Hemoglobin 10.3 g/dL (14.0-18.0); Immature Granulocyte Absolute 0.04 K/mm3 (0.00-0.031); Immature Granulocyte Percent A 0.5 % (0-0.5); Lymphocytes Absolute Auto 1.64 K/mm3 (0.9-3.2); Lymphocytes Percent Auto 20.1 % (18.3-44.2); Mean Corpuscular HGB Conc 32.7 g/dl (32-36); Mean Corpuscular Hemoglobin 31.4 pg (26-34); Mean Platelet Volume 10.1 fl (7.4-10.4); Monocytes Absolute Auto 0.9 K/mm3 (0.1-0.6); Monocytes Percent Auto 10.8 % (2.6-8.5); Neutrophils Percent Auto 61.5 % (45.5-73.1); Platelet Count Result 183 k/mm3 (150-375); Red Blood Count 3.28 M/mm3 (4.6-6.20); Red Cell Distribution Width 13.3 % (11.5-14.5); White Blood Count 8.2 K/mm3 (4.5-10.0)
[2022-06-26 05:10] LABS: INR 1.1
[2022-06-26 05:11] LABS: Partial Thromboplastin Time 30.8 SECONDS (22.3-36.8)
[2022-06-26 05:13] LABS: Albumin Level 3.7 g/dL (3.5-5.1); Anion Gap 6 mmol/L (8-16); Blood Urea Nitrogen 42 mg/dL (9-20); Calcium 8.3 mg/dL (8.4-10.2); Carbon Dioxide 30 mmol/L (22-30); Chloride 102 mmol/L (98-107); Estimated CRCL calculation 23 ml/min; Estimated Glomerular Filt Rate 29; Glucose 91 mg/dL (65-110); Magnesium 2.3 mg/dL (1.6-2.3); Phosphorus 4.4 mg/dL (2.5-4.5); Potassium 3.4 mmol/L (3.4-5.0); Sodium 138 mmol/L (137-145)
[2022-06-26 08:03] LABS: Glucose Point of Care 114 mg/dl (65-105)
--- NOTE | 2022-06-26 08:17 | PC.NURSE ---
to cardiac laboratory operations coordinator for procedure via bed accompanied by RN's
--- NOTE | 2022-06-26 09:32 | WPDMODSED ---
Moderate Sedation Note-Pt Data Patient Data Diagnosis: Chest pain Present Complaint: Chest pain Procedure to be performed/Plan: Coronary angiography, LHC, RHC, +/- PCI Allergies Allergy/AdvReac Type Severity Reaction Status Date / Time No Known Allergies Allergy Verified 06/23/22 07:12 Home Medications Medication Instructions Recorded Confirmed Type latanoprost 0.005 % eye drops 1 drp EACH EYE DAILY 06/29/20 06/23/22 History acetaminophen 500 mg tablet 500 mg PO TID PRN pain #90 tabs 02/22/22 06/23/22 Rx apixaban 2.5 mg tablet (Eliquis) 2.5 mg PO Q12HR #60 tabs 02/22/22 06/23/22 Rx atorvastatin 40 mg tablet 40 mg PO DAILY #30 tabs 02/22/22 06/23/22 Rx chlorthalidone 25 mg tablet 25 mg PO EVERY OTHER DAY #15 tabs 02/22/22 06/23/22 Rx cholecalciferol (vitamin D3) 25 1,000 unit PO DAILY #30 caps 02/22/22 06/23/22 Rx mcg (1,000 unit) capsule (Vitamin D3) amlodipine 10 mg tablet 10 mg PO DAILY 02/26/22 06/23/22 History ascorbic acid (vitamin C) 500 mg 500 mg PO DAILY #30 tabs 03/01/22 06/23/22 Rx tablet ferrous sulfate 324 mg (65 mg 324 mg PO DAILY #30 tabs 03/01/22 06/23/22 Rx iron) tablet,delayed release omeprazole 40 mg capsule,delayed 40 mg PO DAILY #90 caps 03/04/22 06/23/22 Rx release carvedilol 6.25 mg tablet (Coreg) 6.25 mg PO Q12HR 90 days #180 tabs 03/27/22 06/23/22 Rx mirtazapine 15 mg tablet 15 mg PO QHS #90 tabs 04/05/22 06/23/22 Rx alendronate 70 mg tablet 70 mg PO WEEKLY 06/23/22 06/23/22 History lidocaine 5 % topical patch 1 patch topical DAILY PRN Back Pain 06/23/22 06/23/22 History terazosin 5 mg capsule 5 mg PO DAILY 06/23/22 06/23/22 History Current Medications: Active Medications Acetaminophen (Acetaminophen 500 Mg Tablet) 500 mg PO TID PRN PRN Reason: Pain Rated 1-3 Alendronate Sodium (Alendronate Sodium 70 Mg Tablet) 70 mg PO We@0630 ON LICENSE OF [facility] Amlodipine Besylate (Amlodipine Besylate 5 Mg Tablet) 10 mg PO DAILY ON LICENSE OF [facility] Last Admin: 06/25/22 09:28 Dose: 10 mg Apixaban (Apixaban 2.5 Mg Tablet) 2.5 mg PO Q12HR ON LICENSE OF [facility] Ascorbic Acid (Ascorbic Acid 500 Mg Tablet) 500 mg PO DAILY ON LICENSE OF [facility] Last Admin: 06/25/22 09:28 Dose: 500 mg Aspirin (Aspirin 81 Mg Chewable Tablet) 81 mg PO DAILY@0800 ON LICENSE OF [facility] Last Admin: 06/25/22 09:28 Dose: 81 mg Atorvastatin Calcium (Atorvastatin 40 Mg Tablet) 40 mg PO DAILY ON LICENSE OF [facility] Last Admin: 06/25/22 09:28 Dose: 40 mg Carvedilol (Carvedilol 6.25 Mg Tablet) 6.25 mg PO Q12HR ON LICENSE OF [facility] Last Admin: 06/25/22 20:08 Dose: 6.25 mg Chlorthalidone (Chlorthalidone 25 Mg Tablet) 25 mg PO Q48H ON LICENSE OF [facility] Last Admin: 06/24/22 11:44 Dose: 25 mg Dextrose (Dextrose 50% 25 Gm/50 Ml Syringe) 12.5 gm IV PUSH PRN PRN; Protocol PRN Reason: Hypoglycemia Ferrous Sulfate (Ferrous Sulfate 324 Mg Tablet) 324 mg PO DAILY ON LICENSE OF [facility] Last Admin: 06/25/22 09:28 Dose: 324 mg Glucagon (Glucagon For Inj 1 Mg Vial) 1 mg IM PRN PRN; Protocol PRN Reason: Hypoglycemia Glucose (Glucose Oral Gel 15 Gm Of Glucse In 37.5 Gm Tube) 15 gm PO PRN PRN; Protocol PRN Reason: Hypoglycemia Dextrose (Dextrose 5% 1,000 Ml) 1,000 mls @ 100 mls/hr IVPB PRN PRN; Protocol PRN Reason: Hypoglycemia Sodium Chloride (Normal Saline Iv) 500 mls @ 100 mls/hr IV CONT .Q5H ON LICENSE OF [facility] Last Admin: 06/26/22 02:58 Dose: 100 mls/hr Sodium Chloride (Normal Saline Iv) 1,000 mls @ 125 mls/hr IV CONT .Q8H ONE Stop: 06/26/22 17:27 Insulin Aspart (Insulin Aspart (*Bkc) 100 Units/Ml) 2 - 5 units SUB-Q Q6HR ON LICENSE OF [facility]; Protocol Last Admin: 06/26/22 07:33 Dose: Not Given Latanoprost (Latanoprost 0.005% Op Soln 2.5 Ml Btl) 1 drop EACH EYE DAILY ON LICENSE OF [facility] Last Admin: 06/25/22 09:29 Dose: 1 drop Lidocaine (Lidocaine 5% Patch) 1 patch TOPICAL DAILY PRN PRN Reason: Back Pain Mirtazapine (Mirtazapine 15 Mg Tablet) 15 mg PO QHS ON LICENSE OF [facility] Last Admin: 06/25/22 20:08 Dose: 15 mg Morphine Sulfate (Morphine Sulfate (*Crx) 2 Mg/Ml Inj) 2 mg IV PUSH Q4H PRN PRN Reason: Pain Rated 7-10 Ondansetron HCl (Ondansetron Inj 4 Mg/2 Ml Vial) 4 mg IV PUSH Q6H PRN
--- NOTE | 2022-06-26 09:33 | WPDCARDPROC ---
Cardiac Cath Procedure Note Date of procedure:: 06/26/22 Performing physician:: CATHETERIZATION LABORATORY REPORT Procedure Date: 06/26/2022 Correctional Substance Abuse Counselor: Sofi Elliott M.D., [facility]? Referring Physician: Dr. Salcedo / Dr. Elliott? Anesthesia: Versed and Fentanyl were ordered and given in my presence at 08:39, procedure ended at 09:20. Supervision of nurse monitored moderate sedation with Versed and Fentanyl was provided for 41 minutes. Total of Versed 1mg and Fentanyl 50mcg were administered by the Felt Finisher RN Brenda Sandoval. Pre-op Diagnosis: Coronary artery disease, moderate-severe aortic stenosis Post-op Diagnosis: 1. Non-obstructive coronary artery disease with mild disease of left coronary system and moderate diffuse disease of mid RCA. 2. Co-dominant coronary artery system 3. Mildly elevated right heart filling pressures, mildly elevated left heart pressures with a LVEDP of 26mmHg 4. Preserved cardiac output of 5.4 by Khoa 5. Preserved cardiac index of 3.0 by Khoa 6. Severe aortic stenosis with a [id number] gradient of 58mmHg. Estimated aortic valve area of 0.71cm2 (by Hakki formula). Procedure(s): 1. Moderate sedation 2. Ultrasound guided access of the right common femoral artery and the right femoral vein 3. Right heart cath 4. Coronary angiography 5. Left heart cath 6. Angioseal closure of the right common femoral artery Access Site: Right common femoral artery Right femoral vein Brief History and Clinical Indications: Patient is an 82-year-old male referred for [facility] for chest pain, aortic valve stenosis. All risks, benefits and alternatives to left heart catheterization with or without percutaneous coronary intervention was discussed at length with the patient. Risk of complications including but not limited to bleeding, infection, arrhythmia, stroke, worsening kidney function, blood loss, groin hematoma, limb loss, emergency coronary artery bypass grafting, and even were discussed with the patient and all questions were answered. The patient understood and wished to proceed. Time out called, patient name, date of , medical record number, allergies, procedure performed, identify Correctional Substance Abuse Counselor, patient and staff member concurred with accurate data, procedure carried on. Findings: LEFT HEART CATHETERIZATION FINDINGS: 1. Left main: The left main is a calcific vessel. The left main coronary artery is widely patent without any significant obstructive disease. 2. Left anterior descending: The LAD is a calcific vessel. The LAD has mild diffuse disease without any significant obstructive angiographic disease. The first diagonal branch has mild-moderate ostial stenosis with mild diffuse disease in remainder of vessel. 3. Left circumflex: The LCX is a calcific vessel. The LCX is a co-dominant vessel. The left circumflex artery and the main marginal branches have mild luminal irregularities without any significant obstructive angiographic disease. 4. Right coronary artery: The RCA is a diffusely calcific vessel. The RCA is a co-dominant vessel. Proximal RCA has mild diffuse disease. The mid RCA has moderate diffuse disease of 50-70%. Distal RCA with mild diffuse disease. 5. Left ventricle: A. End-diastolic pressure 26mmHg. B. LV gram deferred. C. No significant gradient across aortic valve on catheter pullback. RIGHT HEART CATHETERIZATION FINDINGS: Pressures (mmHg): RA: 6 RV: 39/8 PA: 38/11 with mean of 21mmHg PCWP: 10 Saturations (%): PA: 59.6% Arterial: 89.7% CO/CI: Khoa CO: 5.4 Khoa CI: 3.0 PVR (TIPTON): 2 Description of Procedure: Informed consent signed and placed in the chart. Patient transferred to laborer bituminous paving room. Prepped and draped in usual sterile fashion. 2% lidocaine injected subcutaneously in right groin area. Right femoral vein was accessed using micropuncture technique under ultrasound guidance. 7-FR sheath placed. Micropuncture needle used to access right common femor
--- NOTE | 2022-06-26 10:27 | PM.PNCARD ---
Progress Note: A&P Assessment and Plan (1) Chest pain: Code(s): R07.9 - Chest pain, unspecified Status: Acute Assessment and Plan: His troponin levels are modestly elevated but flat, not really indicative of acute coronary syndrome and attributable to his chronic kidney disease.? Cardiac cath showed: 1. Non-obstructive coronary artery disease with mild disease of left coronary system and moderate diffuse disease of mid RCA. 2. Co-dominant coronary artery system 3. Mildly elevated right heart filling pressures, mildly elevated left heart pressures with a LVEDP of 26mmHg 4. Preserved cardiac output of 5.4 by Khoa 5. Preserved cardiac index of 3.0 by Khoa 6. Severe aortic stenosis with a fzfp-lw-ubmm gradient of 58mmHg. Estimated aortic valve area of 0.71cm2 (by Hakki formula). Medical management for his CAD with ASA, statin, beta emmanuel. Okay for discharge home today. (2) Systolic CHF: Code(s): I50.20 - Unspecified systolic (congestive) heart failure Status: Acute Assessment and Plan: Chronic. Compensated. LVEF 40-45% on TTE 02/2022. Will obtain a TTE today for re-eval. (3) Atrial fibrillation: Code(s): I48.91 - Unspecified atrial fibrillation Status: Acute Assessment and Plan: In sinus rhythm. Holding NOAC in preparation for cardiac cath Patient can resume Eliquis 06/27 PM. (4) Chronic kidney disease (CKD) stage G3b/A3, moderately decreased glomerular filtration rate (GFR) between 30-44 mL/min/1.73 square meter and albuminuria creatinine ratio greater than 300 mg/g: Code(s): N18.32 - Chronic kidney disease, stage 3b Status: Acute Assessment and Plan: Monitor renal function closely (5) Elevated troponin: Code(s): R77.8 - Other specified abnormalities of plasma proteins Status: Acute Assessment and Plan: His troponin levels are modestly elevated but flat, not really indicative of acute coronary syndrome and attributable to his chronic kidney disease. (6) Aortic stenosis: Code(s): I35.0 - Nonrheumatic aortic (valve) stenosis Status: Acute Assessment and Plan: TTE 02/2022: There is moderate-severe with mean gradient of 30mmHg and PATRICE of 0.97cm2. Cardiac cath today showed severe aortic stenosis with a coml-eq-ppvi gradient of 58mmHg. Estimated aortic valve area of 0.71cm2 (by Hakki formula). Will obtain a TTE today before patient is discharged home. Will set up patient to see Dr. Godfrey for TAVR evaluation. Subjective Date/time seen: 06/26/22 10:27 Interval history: Reason for visit: Chest pain HPI: This is an 82-year-old man unknown to me but apparently known to my partner, Dr. Elliott I am seeing at the request of the hospitalist after he was admitted here yesterday evening because of chest pain.? The patient was in his usual state of health at home when he started to have pressure-like low substernal chest pain yesterday in his home.? The discomfort was present for a number of hours it was waxing and waning he was trying to find a more comfortable position to get into to obtain relief but was unable to.? Eventually he decided he had better inform his family that he was having the symptoms and he was brought to the emergency room in [place] where he was evaluated and admitted to the hospital for short time.? Because of the elevation in troponin he was then transferred here to this hospital for further evaluation and management.? He is otherwise comfortable at this time and does not have any current complaints.? His troponin levels here are 0.1 and flat.? His electrocardiogram shows sinus rhythm with some mild nonspecific ST segment changes.? No apparent acute current of injury.? The patient is known to my partner, Dr. Elliott with a recent admission here with clinical evidence of a non ST elevation [place]. the patient at that time preferred a conservative approach to his care and he was treated medically.? He was also
[2022-06-26] MEDS: PERFLUTREN LIPID MICROSPHERES 1.5 ML VIAL DILUTED TO 10 ML TOTAL VOLUME IV PUSH (10:58)
--- NOTE | 2022-06-26 10:58 | IVDEFINITY ---
Prior to administration of IV Definity the patient was educated on the risks and benefits of the imaging enhancing agent including potential adverse side effects. The patient verbalized understanding. Allergies were verified. No exclusion criteria were identified and at least one of the following inclusion criteria were met: 1) physician request, 2) patient technically difficult to image (per the [place] [employer] of Echocardiography guidelines of two or more segments not discernable within the apical view), or 3) questionable left ventricular function. ?
[2022-06-26 12:06] LABS: Glucose Point of Care 106 mg/dl (65-105)
[2022-06-26] MEDS: amLODIPine BESYLATE 5 MG TABLET 10 MG PO (12:11)
[2022-06-26] MEDS: FERROUS SULFATE 324 MG TABLET PO (12:11)
[2022-06-26] MEDS: ATORVASTATIN 40 MG TABLET PO (12:11)
[2022-06-26] MEDS: PANTOPRAZOLE 40 MG TABLET PO (12:15)
[2022-06-26] MEDS: LATANOPROST 0.005% OP SOLN 2.5 ML BTL 1 DROP EACH EYE (12:15)
[2022-06-26] MEDS: TERAZOSIN HCL 5 MG CAPSULE PO (12:15)
[2022-06-26] MEDS: carvediloL 6.25 MG TABLET PO (12:16)
[2022-06-26] MEDS: CHOLECALCIFEROL 1,000 UNITS TABLET 1000 UNITS PO (12:17)
[2022-06-26] MEDS: ASCORBIC ACID 500 MG TABLET PO (12:18)
--- NOTE | 2022-06-26 12:45 | PC.NURSE ---
1100- pt returned to room @ 1050 post cardiac cat- right groin soft ,no hematoma +2 pedal pulse. VSS- pt instructed on post procedure activity-bedrest until 1340- IVF infusing per ordered
[2022-06-26] MEDS: ACETAMINOPHEN 500 MG TABLET PO (14:06)
--- NOTE | 2022-06-26 14:06 | PM.DS ---
DS: Admitting Diagnosis Discharge Date CHest pain unspecified Admitting Diagnosis Chest pain DS: Discharge Diagnosis Discharge Diagnosis (1) Chest pain: Code(s): R07.9 - Chest pain, unspecified Status: Acute Assessment and Plan: No further chest pain. Troponin peaked at 0.13. EKG showing normal sinus rhythm with nonspecific ST T wave changes. Continue Coreg, ASA and Lipitor. Recent stress test results were noted from February 2022. Cardiology consulted. (2) Systolic CHF: Code(s): I50.20 - Unspecified systolic (congestive) heart failure Status: Acute Assessment and Plan: Patient with chronic systolic CHF. EF was 40-45% from an echo in February. Patient euvolemic at this time. (3) Atrial fibrillation: Code(s): I48.91 - Unspecified atrial fibrillation Status: Acute Assessment and Plan: Patient has a history of atrial fibrillation. Currently in normal sinus rhythm. Continue Coreg. (4) Chronic kidney disease (CKD) stage G3b/A3, moderately decreased glomerular filtration rate (GFR) between 30-44 mL/min/1.73 square meter and albuminuria creatinine ratio greater than 300 mg/g: Code(s): N18.32 - Chronic kidney disease, stage 3b Status: Acute Assessment and Plan: His baseline creatinine is 2 - 2.3. Continue to monitor. (5) DM2 (diabetes mellitus, type 2): Code(s): E11.9 - Type 2 diabetes mellitus without complications Status: Acute Assessment and Plan: A1c 6.1. The patient's blood glucose was reviewed on 06/25 Glucose remains well controlled. Continue AccuCheks covering with sliding scale. Hypoglycemia protocol available as needed. Continue to monitor (6) GERD (gastroesophageal reflux disease): Qualifiers: Esophagitis presence: without esophagitis Qualified Code(s): K21.9 - Gastro-esophageal reflux disease without esophagitis Code(s): K21.9 - Gastro-esophageal reflux disease without esophagitis Status: Acute Assessment and Plan: Continue with omeprazole (7) Hyperlipidemia: Code(s): E78.5 - Hyperlipidemia, unspecified Status: Acute Assessment and Plan: LFTs okay. Continue with atorvastatin (8) Hypertension: Qualifiers: Hypertension type: primary hypertension Qualified Code(s): I10 - Essential (primary) hypertension Code(s): I10 - Essential (primary) hypertension Status: Chronic Assessment and Plan: BP stable. Continue with amlodipine, Coreg and terazosin (9) Anemia: Code(s): D64.9 - Anemia, unspecified Status: Acute Assessment and Plan: H&H is stable could be related to his chronic renal failure. DS: Summary Hospital Course Hospital Course: His troponin levels are modestly elevated but flat, not really indicative of acute coronary syndrome and attributable to his chronic kidney disease.? Cardiac cath showed: 1. Non-obstructive coronary artery disease with mild disease of left coronary system and moderate diffuse disease of mid RCA. 2. Co-dominant coronary artery system 3. Mildly elevated right heart filling pressures, mildly elevated left heart pressures with a LVEDP of 26mmHg 4. Preserved cardiac output of 5.4 by Khoa 5. Preserved cardiac index of 3.0 by Khoa 6. Severe aortic stenosis with a xhfw-ui-gfdc gradient of 58mmHg. Estimated aortic valve area of 0.71cm2 (by Hakki formula). Medical management for his CAD with ASA, statin, beta emmanuel. Okay for discharge home today after echo Pt to follow with Dr Godfrey for possible TAVR Time Spent with Patient Time attestation: Total time spent providing and/or coordinating discharge services: 40 minutes on day of discharge Exam Narrative: Generally: Frail elderly gentleman Chest - CTA bilaterally, nml RR CV - RRR S1/S2 with 2/6 systolic murmur Abd - Soft, NT/ND, Positive BS. Ext - No pedal edema Psych - Nml mood and affect
--- NOTE | 2022-06-26 15:01 | PC.NURSE ---
up ambulated in room- discharged home- post cardiac cath and wound care/instructions discussed with pt /daughter-both verbalized understanding; f/u appointments with dr. jara and dr. gonzalez given to pt
== END 2022-06-26 16:11 | disposition home or self-care (01) | DRG 287 ==
PROVIDERS: Internal Medicine; Nurse Practitioner; Admitting Provider Hospitalist; PCP Family Medicine; Visit Provider Family Medicine
PROC: 4A023N8 Measurement of Cardiac Sampling and Pressure, Bilateral, Percutaneous Approach (ICD-10-PCS; CPT 93453; principal; 2022-06-26 08:30)
PROC: 4A023N8 Measurement of Cardiac Sampling and Pressure, Bilateral, Percutaneous Approach (ICD-10-PCS; 2022-06-26 08:30)
DX: I25.10 Atherosclerotic heart disease of native coronary artery without angina pectoris (principal); I13.0 Hypertensive heart and chronic kidney disease with heart failure and stage 1 through stage 4 chronic kidney disease, or unspecified chronic kidney disease; I50.22 Chronic systolic (congestive) heart failure; I48.20 Chronic atrial fibrillation, unspecified; R07.9 Chest pain, unspecified; I35.0 Nonrheumatic aortic (valve) stenosis; N18.32 Chronic kidney disease, stage 3b; E11.22 Type 2 diabetes mellitus with diabetic chronic kidney disease; E78.5 Hyperlipidemia, unspecified; D64.9 Anemia, unspecified; K21.9 Gastro-esophageal reflux disease without esophagitis; M19.90 Unspecified osteoarthritis, unspecified site; R77.8 Other specified abnormalities of plasma proteins; H40.9 Unspecified glaucoma; Z79.01 Long term (current) use of anticoagulants; I25.2 Old myocardial infarction; Z87.891 Personal history of nicotine dependence
CPT/HCPCS: 36415; 80048; 80053; 80069; 82948; 83036; 83605; 83735; 84100; 84443; 84484; 85025; 85610; 85730; 93005; 93460; A9270; C1760; C1887; C1894; C8929; G0269; G0378; G0379; J1644; J2250; J3010; J7040; Q9957

== ENCOUNTER 2022-08-30 10:47 | Outpatient (CLI) | payer MEDICARE, SELFPAY ==
[2022-08-30 11:54] LABS: Vitamin B12 377 pg/mL (193-986)
== END 2022-08-30 10:48 | disposition home or self-care (01) ==
PROVIDERS: PCP Family Medicine; Visit Provider Family Medicine
DX: E53.8 Deficiency of other specified B group vitamins (principal)
CPT/HCPCS: 36415; 82607; 82746

== ENCOUNTER 2022-10-28 10:08 | Outpatient (CLI) | payer MEDICARE, SELFPAY ==
[2022-10-28 10:35] LABS: Hematocrit 30.5 % (37.0-46.0); Hemoglobin 9.7 g/dL (12.4-15.3); Mean Corpuscular HGB Conc 31.8 g/dL (32.0-36.0); Mean Corpuscular Hemoglobin 32.7 pg (27.0-31.0); Mean Corpuscular Volume 102.7 fL (78.0-102.0); Mean Platelet Volume 10.3 fl (8.7-11.0); Platelet Count Result 136 K/mm3 (150-420); Red Blood Count 2.97 M/mm3 (4.70-6.10); Red Cell Distribution Width 12.3 % (11.6-14.4); White Blood Count 5.5 K/mm3 (4.8-10.8)
[2022-10-28 11:49] LABS: Alanine Aminotransferase 8 U/L (16-63); Albumin Level 3.5 g/dL (3.4-5.0); Alkaline Phosphatase 86 U/L (46-116); Anion Gap 7 mmol/L (8-16); Aspartate Amino Transferase 16 U/L (15-37); Bilirubin,Total 0.3 mg/dL (0.00-1.00); Blood Urea Nitrogen 36 mg/dL (7-18); Calcium 8.8 mg/dL (8.5-10.1); Carbon Dioxide 30 mmol/L (21-32); Chloride 110 mmol/L (98-108); Estimated Glomerular Filt Rate 37; Ferritin 76 ng/mL (26-388); Glucose 99 mg/dL (70-99); Iron 56 ug/dL (65-175); Osmolality Calculated 312 mOsm/kg (285-295); Percent Iron Saturation 25 % (12-57); Potassium 4.3 mmol/L (3.5-5.1); Sodium 147 mmol/L (136-145); Total Protein 6.6 g/dL (6.4-8.2); Vitamin B12 273 pg/mL (193-986)
[2022-10-28 11:52] LABS: Folic Acid > 20.0 ng/mL (8.6->20)
[2022-10-28 12:08] LABS: Hemoglobin A1C 5.7 % (<5.7)
[2022-10-28 12:44] LABS: Band Neutrophils Percent 0 % (0-6); Basophils Percent Manual 0 % (0-1); Eosinophils Absolute Manual 0.55 K/mm3 (0.02-0.5); Eosinophils Percent Manual 10 % (1-6); Lymphocytes Absolute Manual 1.26 K/mm3 (1.1-4.5); Lymphocytes Percent Manual 23 % (18-44); Monocytes Absolute Manual 0.27 K/mm3 (0.1-0.90); Monocytes Percent Manual 5 % (3-9); Neutrophils Absolute Manual 3.41 K/mm3 (1.3-6.7); Neutrophils Percent Manual 62 % (46-73); Platelet Estimate Adequate (Adequate); Total Cells Counted 100
== END 2022-10-28 10:09 | disposition home or self-care (01) ==
LOC: CHSLAB 10:10
PROVIDERS: PCP Family Medicine; Visit Provider Family Medicine
DX: E11.9 Type 2 diabetes mellitus without complications (principal); D50.9 Iron deficiency anemia, unspecified; E53.8 Deficiency of other specified B group vitamins; D53.9 Nutritional anemia, unspecified
CPT/HCPCS: 36415; 80053; 82607; 82728; 82746; 83036; 83540; 83550; 85025

== ENCOUNTER 2022-10-29 09:29 | Outpatient (CLI) | payer MEDICARE, SELFPAY ==
[2022-10-29 09:39] LABS: Occult Blood Negative (Negative)
== END 2022-10-29 09:30 | disposition home or self-care (01) ==
LOC: CHSLAB 09:31
PROVIDERS: PCP Family Medicine; Visit Provider Family Medicine
DX: D53.9 Nutritional anemia, unspecified (principal); D50.9 Iron deficiency anemia, unspecified
CPT/HCPCS: 82272

== ENCOUNTER 2023-05-05 19:33 | Emergency (ER) | payer MEDICARE, OTHER, SELFPAY ==
[2023-05-05] VITALS (10 sets, daily range): BP systolic 160–211; BP diastolic 61–85; PULSE 74–85; RESP 18–20; TEMP 36.6; O2SAT 96–98
--- NOTE | ~2023-05-05 | XR_ITS ---
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 RESULT: Lines, tubes, and devices: Valve replacement. Lungs and pleura: Clear. Cardiomediastinal silhouette: Stable. Other: No acute osseous or upper abdominal finding. Old right humeral head fracture IMPRESSION: No acute cardiopulmonary process. Reviewed, dictated and finalized at location K. AUTOMATIC STITCHER OPERATOR
--- NOTE | 2023-05-05 20:07 | ED.ALLEREA ---
HPI - Allergic Reaction General Chief complaint: Upper Respiratory Infection Stated complaint: feeling unwell Time Seen by Provider: 05/05/23 20:01 Source: patient Mode of arrival: ambulatory Limitations: no limitations History of Present Illness HPI narrative: Patient is an 83-year-old male not feeling well this evening. He had elevated blood pressure at home. His pressure was high in the emergency room. Known history of allergy to: Patient has cough and congestion and not feeling well. He relates some of this to his blood pressure being elevated. No chest pain or shortness of breath. He does say he has chest pain from time to time. No nausea vomiting or diarrhea. Severity: mild Treatment prior to arrival: none Related Data Home Medications Medication Instructions Recorded Confirmed latanoprost 0.005 % eye drops 1 drp EACH EYE DAILY 06/29/20 05/05/23 lidocaine 5 % topical patch 1 patch topical DAILY PRN Back Pain 06/23/22 05/05/23 losartan 25 mg tablet 25 mg PO DAILY 05/05/23 05/05/23 Allergies Allergy/AdvReac Type Severity Reaction Status Date / Time No Known Allergies Allergy Verified 01/27/23 08:01 Review of Systems Review of Systems: All systems reviewed & are unremarkable except as noted in HPI and below Constitutional: Constitutional: Reports no additional constitutional complaints Eyes: Eyes: Reports no additional eye complaints ENT: Reports system reviewed and no additional complaints, except as documented Cardiovascular: Cardiovascular: Reports no additional cardiovascular complaints Respiratory: Respiratory: Reports no additional respiratory complaints Gastrointestinal: Gastrointestinal: Reports no additional gastrointestinal complaints Genitourinary: Genitourinary: Reports no additional male genitourinary complaints Musculoskeletal: Musculoskeletal: Reports no additional musculoskeletal complaints Integumentary/Breasts: Skin/Breast: Reports system reviewed and no additional complaints, except as docu Neurologic: Reports system reviewed and no additional complaints, except as documented Psychiatric: Psychiatric: Reports no additional psychiatric complaints Endocrine: Endocrine: Reports no additional endocrine complaints Hematologic/Lymphatic: Hematologic/Lymphatic: Reports no additional hematologic/lymphatic complaints Allergic/Immunologic: Allergic/Immunologic: Reports no additional allergic/immunologic complaints PMFSH Past Medical History Medical History Acute blood loss anemia Anemia Atrial fibrillation CKD (chronic kidney disease) stage 3, GFR 30-59 ml/min Dieulafoy lesion (hemorrhagic) of intestine DM2 (diabetes mellitus, type 2) GERD (gastroesophageal reflux disease) Glaucoma Humerus fracture Hyperlipidemia Hypertension Melena Osteoarthritis Systolic CHF Echo on 02/14/2022 was read as an EF of 40 - 45 Surgical History Surgical History History of back surgery He has had back surgeries plus the neurostimulator. However the patient had an infection in the neurostimulator was taken out History of cataract extraction History of removal of pigmented skin lesion From his left forehead which was actinic keratosis Family History Family History Mother Tuberculosis Father Alcoholism Sibling Lung disease Social History Social History Social History: The patient is and lives with his . He has 2 children. He is retired from the [employer]. 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 His is the durable power insurance attorney for healthcare. The patient is a former smoker and denies any alcohol marijuana or illicit drugs. Code status full code. However the patient does not want to live in a vegetative state. Smoking packs
--- NOTE | 2023-05-05 20:22 | ECG_ITS ---
Measurements Intervals [place] Rate: 64 P: 78 AK: 251 QRS: 45 QRSD: 101 T: 25 QT: 391 QTc: 405 Interpretive Statements SINUS RHYTHM WITH FIRST DEGREE AV BLOCK DELAYED PRECORDIAL R/S TRANSITION BASELINE ARTIFACT- I, II, AVR, AVL, V1 BORDERLINE ECG COMPARED TO ECG 06/24/2022 11:05:42 NO SIGNIFICANT CHANGES Electronically Signed On 05-06-2023 8:08:41 [employer] by Bryant Evans D.O.
[2023-05-05 20:44] LABS: Basophils Absolute Auto 0.04 K/mm3 (0.00-0.10); Basophils Percent Auto 0.6 % (0.0-1.0); Eosinophils Percent Auto 9.8 % (1.0-6.0); Hematocrit 31.6 % (37.0-46.0); Hemoglobin 10.1 g/dL (12.4-15.3); Immature Granulocyte Absolute 0.03 K/mm3 (0.00-0.00); Immature Granulocyte Percent A 0.4 % (0.0-0.0); Lymphocytes Percent Auto 19.5 % (18.0-42.0); Mean Corpuscular Hemoglobin 32.1 pg (27.0-31.0); Mean Corpuscular Volume 100.3 fL (78.0-102.0); Mean Platelet Volume 9.8 fl (8.7-11.0); Monocytes Absolute Auto 0.46 K/mm3 (0.10-0.90); Monocytes Percent Auto 6.4 % (2.0-11.0); Neutrophils Absolute Auto 4.5 K/mm3 (1.7-7.2); Neutrophils Percent Auto 63.3 % (50.0-70.0); Platelet Count Result 133 K/mm3 (150-420); Red Blood Count 3.15 M/mm3 (4.70-6.10); Red Cell Distribution Width 12.4 % (11.6-14.4); White Blood Count 7.2 K/mm3 (4.8-10.8)
[2023-05-05 21:03] LABS: Alanine Aminotransferase 28 U/L (16-63); Albumin Level 3.7 g/dL (3.4-5.0); Alkaline Phosphatase 75 U/L (46-116); Anion Gap 5 mmol/L (8-16); Aspartate Amino Transferase 25 U/L (15-37); Bilirubin,Total 0.4 mg/dL (0.00-1.00); Blood Urea Nitrogen 31 mg/dL (7-18); Calcium 9.4 mg/dL (8.5-10.1); Carbon Dioxide 31 mmol/L (21-32); Chloride 107 mmol/L (98-108); Estimated CRCL calculation 26 ml/min; Estimated Glomerular Filt Rate 32; Glucose 103 mg/dL (70-99); Osmolality Calculated 302 mOsm/kg (285-295); Potassium 4.2 mmol/L (3.5-5.1); Sodium 143 mmol/L (136-145); Total Protein 6.9 g/dL (6.4-8.2)
[2023-05-05 21:06] LABS: Lactic Acid Reflex 0.9 mmol/L (0.4-2.0)
[2023-05-05 21:35] LABS: Influenza A QL RT-PCR Negative (Negative); Influenza B QL RT-PCR Negative (Negative); RSV RNA, RT-PCR Negative (Negative); SARS-CoV-2 RNA PCR Negative (Negative)
[2023-05-05 21:41] LABS: Appearance Urine Clear (Clear); Bilirubin Urine Negative (Negative); Blood Urine 1+ (Negative); Color Urine Light Yellow (Yellow); Glucose Urine UA Negative (Negative); Ketones Urine Negative (Negative); Leukocyte Esterase Ur Negative LEU/UL (Negative); Nitrate Urine Negative (Negative); Protein Urine 3+ (Negative); Specific Grav Ur 1.025 (1.010-1.020); Urobilinogen Urine 0.2 mg/dL (0.2-1.0)
[2023-05-05 21:50] LABS: Add Urine Microscopic? YES; RBC Urine 0-2 /hpf (0-2)
[2023-05-05 21:51] LABS: Bacteria Urine None seen /hpf; Squamous Epithelial Cell Urine None seen /hpf (Few); WBC Urine 0-3 /hpf (0-3)
[2023-05-05] MEDS: cloNIDine HCL 0.1 MG TABLET PO (21:53)
[2023-05-05 22:44] LABS: Troponin I 51.1 ng/L (0.00-60.4)
== END 2023-05-05 23:30 | disposition home or self-care (01) ==
PROVIDERS: Emergency Provider Emergency Medicine; PCP Nurse Practitioner Family
DX: B34.9 Viral infection, unspecified (principal); I12.9 Hypertensive chronic kidney disease with stage 1 through stage 4 chronic kidney disease, or unspecified chronic kidney disease; E11.22 Type 2 diabetes mellitus with diabetic chronic kidney disease; N18.30 Chronic kidney disease, stage 3 unspecified; E78.5 Hyperlipidemia, unspecified; I48.91 Unspecified atrial fibrillation; Z20.822 Contact with and (suspected) exposure to COVID-19; Z79.899 Other long term (current) drug therapy; Z87.891 Personal history of nicotine dependence
CPT/HCPCS: 36415; 71046; 80053; 81001; 83605; 84484; 85025; 87637; 93005; 99284; A9270

== ENCOUNTER 2023-05-14 13:48 | Outpatient (CLI) | payer MEDICARE, OTHER, SELFPAY ==
--- NOTE | ~2023-05-14 | DEXA_ITS ---
Bone Density Report Name: JACKIE DESAI Age: 83 Sex: Male Ethnicity: White Date of : 1940 Indication: screening for osteoporosis; height loss; prior fracture; end stage renal disease; Referring Provider: Sam Alfaro Study: Bone densitometry was performed. Exam Date: May 14, 2023 Accession number: [id number] Bone Density: Region BMD T-score Z-score Classification Femoral Neck (Left) 0.649 -2.1 -0.4 Osteopenia Total Hip (Left) 0.704 -2.2 -1.0 Osteopenia Femoral Neck (Right) 0.609 -2.4 -0.7 Osteopenia Total Hip (Right) 0.704 -2.2 -1.0 Osteopenia Femoral Neck Mean 0.629 -2.2 -0.6 Osteopenia Total Hip Mean 0.704 -2.2 -1.0 Osteopenia World Health Organization criteria for BMD impression classify patients as: Normal (T-score at or above -1.0), Osteopenia (T-score between -1.0 and -2.5), or Osteoporosis (T-score at or below -2.5). 10-year Fracture Risk(1): Major Osteoporotic Fracture 15% Hip Fracture 6.3% Reported Risk Factors: [place] (), Neck BMD=0.609, BMI=24.7, previous fracture (1) FRAX(R) Version 3.08. Fracture probability calculated for an untreated patient. Fracture probability may be lower if the patient has received treatment. Clinical Information Provided by Patient: Has had a low trauma fracture Has the following medical conditions: End stage renal disease Patient maximum height was 69 No regular weight bearing exercise Drinks caffeinated beverages Impression: The patient has low bone mass, based on the Right Femoral Neck T-score. The patient has risk factors, including: previous fracture. Discussion: BONE DENSITY IS LOW AT ONE OR MORE SKELETAL SITES. This patient's lowest T-score is low at one or more skeletal sites. It meets the World Health Organization's (WHO) criteria for ?low bone mass? (T-score between -1.0 and -2.5). The patient's 10-year risk of fracture as calculated by FRAX is less than the threshold where pharmacological therapy is recommended by the National Osteoporosis Foundation (NOF). However, all treatment decisions require clinical judgment and consideration of individual patient factors, including patient preferences, comorbidities, previous drug use, risk factors not captured in the FRAX model (e.g., frailty, falls, vitamin D deficiency, increased bone turnover, interval significant decline in bone density) and possible under or overestimation of fracture risk by FRAX. The patient should follow a healthful lifestyle (good nutrition with adequate calcium and vitamin D, and appropriate weight-bearing exercise). Follow-Up: Consider repeating this study in 2 to 3 years to reassess this patient's status, or sooner if there is some new clinical indication. Reported by: Dr. Ghassan Barnard on 05/14/2023 2:15:00 PM.
== END 2023-05-14 13:49 | disposition home or self-care (01) ==
LOC: CHSIMG 13:49
PROVIDERS: PCP Family Medicine; Visit Provider Family Medicine
DX: M85.89 Other specified disorders of bone density and structure, multiple sites (principal)
CPT/HCPCS: 77080

== ENCOUNTER 2023-07-26 10:10 | Emergency (ER) | payer MEDICARE, OTHER, SELFPAY ==
--- NOTE | ~2023-07-26 | XR_ITS ---
XR thoracic spine 2V 07/26/2023 11:14 Indication: Back pain Procedure: 3 views thoracic spine Comparison: No prior studies for comparison. Findings: There is levoscoliosis. Osteopenia. Moderate thoracic spondylosis. There is chronic anterio r wedge shaped appearance to at T6-T11, likely chronic which there are likely chronic. No paraspinal soft tissue abnormality. There is a prosthetic heart valve. No acute fracture or traumatic malalignme nt. Impression: 1: No acute abnormality of the thoracic spine. Reviewed, dictated and finalized at location A. Impression: 1: No acute abnormality of the thoracic spine.
--- NOTE | ~2023-07-26 | XR_ITS ---
[[id number] ] INDICATION: Left rib pain after fall TECHNIQUE: Frontal projection of the upper left ribs, frontal projection of the lower left ribs, obli que projection of all the left ribs, frontal inspiratory chest x-ray for interpretation. FINDINGS: There are no displaced rib fractures identified. There are no soft tissue abnormality see n. The lungs are clear. There is a healed right humeral neck fracture. IMPRESSION: 1:No acute displaced rib fractures. Reviewed, dictated and finalized at location A.
--- NOTE | ~2023-07-26 | XR_ITS ---
XR abdomen/kub 1V 07/26/2023 11:15 Indication: Abdominal pain Procedure: KUB Comparison: No prior studies for comparison. Findings: Bowel pattern nonobstructive. There are gallstones. Severe lumbar spondylosis with dextrosc oliosis. There are pelvic phleboliths. There is calcification the right and midabdomen which may repr esent a renal stone. Impression: 1: Nonobstructive bowel gas pattern. 2: Cholelithiasis. 3: Possible right nephrolithiasis. Reviewed, dictated and finalized at location A. Impression: 1: Nonobstructive bowel gas pattern. 2: Cholelithiasis. 3: Possible right nephrolithiasis.
--- NOTE | ~2023-07-26 | CT_ITS ---
EXAMINATION: CT abdomen pelvis wo con DATE: 07/26/2023 11:43 INDICATION: Right kidney stone TECHNIQUE: Computed tomography (CT) of the abdomen and pelvis was performed without intravenous contr ast. The dose-length product was 185.94 mGy-cm. Automated exposure control and iterative reconstruction technique were employed. COMPARISON: None. FINDINGS: Lung bases are unremarkable. Heart size normal. No significant pleural or pericardial is ef fusion. Gallbladder is present with stones. There is a 6 mm nonobstructing right renal stone. Bowel p attern nonobstructive. Bladder is decompressed. No abnormal pelvic masses or fluid collections. There is atherosclerosis of the aorta without aneurysm. No free air or free fluid. Moderate-severe lumbar spondylosis with fusion at L4-5. IMPRESSION: 1. Nonobstructing 6 mm right renal stone. 2: Cholelithiasis. Reviewed, dictated and finalized at location A.
--- NOTE | ~2023-07-26 | XR_ITS ---
XR lumbar spine 2-3V 07/26/2023 11:13 Indication: Back pain after fall Procedure: 5 views lumbar spine Comparison: No prior studies for comparison. Findings: Status post fusion at L4-5. Pedicle screws intact. There are laminectomy changes at this le vanessa. There is prosthetic disc device at L4-5. There is dextroscoliosis of the lumbar spine. There are gallstones. Osteopenia. Lateral bone mass graft present at L4-5. There is disc narrowing at all lumb ar levels. There is degenerative retrolisthesis at L2-3. No acute fracture or traumatic malalignment. Impression: 1: Severe lumbar spondylosis with fusion at L4-5. Reviewed, dictated and finalized at location A. Impression: 1: Severe lumbar spondylosis with fusion at L4-5.
[2023-07-26 10:10] VITALS: BP 164/59; PULSE 62; RESP 16; TEMP 36.2; O2SAT 99
--- NOTE | 2023-07-26 10:16 | ED.FALL ---
HPI - Fall General Chief Complaint: Fall Stated Complaint: rib pain; upper abdominal pain; diarrhea Time Seen by Provider: 07/26/23 10:15 Source: patient Mode of arrival: ambulatory Limitations: no limitations History of Present Illness HPI Narrative: Patient is a 83-year-old male with a fall mechanically yesterday. He fell onto his left side and sustained left rib pain. He also has chronic abdominal pain and diarrhea. MD complaint: fall Onset (ago): day(s) (1) Fall from: standing Fall witnessed: yes, by family Place fall occurred: home Loss of consciousness: none Prolonged down time: no Symptoms prior to fall: none Context: tripped/slipped Location of injury: chest ( Left side) Severity: mild Quality: sharp and stabbing Associated symptoms (after fall): denies Related Data Home Medications Medication Instructions Recorded Confirmed latanoprost 0.005 % eye drops 1 drp EACH EYE DAILY 06/29/20 05/09/23 lidocaine 5 % topical patch 1 patch topical DAILY PRN Back Pain 06/23/22 05/09/23 losartan 25 mg tablet 25 mg PO DAILY 05/05/23 05/09/23 hydrocodone 5 mg-acetaminophen 325 1 tablet PO Q6H PRN 07/01/23 mg tablet rwhjwkwt-dh-govxp 300 mcg-K 60 1 tablet PO DAILY 07/01/23 mcg-lycop 600 mcg-lutein 300 mcg tablet (Centrum Silver Men) tamsulosin 0.4 mg capsule 0.4 mg PO QHS 07/01/23 Allergies Allergy/AdvReac Type Severity Reaction Status Date / Time No Known Allergies Allergy Verified 07/01/23 10:55 Review of Systems Review of Systems: All systems reviewed & are unremarkable except as noted in HPI and below Constitutional: Constitutional: Reports no additional constitutional complaints Eyes: Eyes: Reports no additional eye complaints ENT: Reports system reviewed and no additional complaints, except as documented Cardiovascular: Cardiovascular: Reports no additional cardiovascular complaints Respiratory: Respiratory: Reports no additional respiratory complaints Gastrointestinal: Gastrointestinal: Reports no additional gastrointestinal complaints Genitourinary: Genitourinary: Reports no additional male genitourinary complaints Musculoskeletal: Musculoskeletal: Reports no additional musculoskeletal complaints Integumentary/Breasts: Skin/Breast: Reports system reviewed and no additional complaints, except as docu Neurologic: Reports system reviewed and no additional complaints, except as documented Psychiatric: Psychiatric: Reports no additional psychiatric complaints Endocrine: Endocrine: Reports no additional endocrine complaints Hematologic/Lymphatic: Hematologic/Lymphatic: Reports no additional hematologic/lymphatic complaints Allergic/Immunologic: Allergic/Immunologic: Reports no additional allergic/immunologic complaints PMFSH Past Medical History Medical History Acute blood loss anemia Anemia Atrial fibrillation CKD (chronic kidney disease) stage 3, GFR 30-59 ml/min Dieulafoy lesion (hemorrhagic) of intestine DM2 (diabetes mellitus, type 2) GERD (gastroesophageal reflux disease) Glaucoma History of transcatheter aortic valve replacement (TAVR) Humerus fracture Hyperlipidemia Hypertension Melena Osteoarthritis Systolic CHF Echo on 02/14/2022 was read as an EF of 40 - 45 Surgical History Surgical History History of back surgery He has had back surgeries plus the neurostimulator. However the patient had an infection in the neurostimulator was taken out History of cataract extraction History of hernia repair History of removal of pigmented skin lesion From his left forehead which was actinic keratosis Hx of cardiac cath Hx of meniscectomy of right knee Family History Family History Mother Tuberculosis Father Alcoholism Sibling Lung disease Social History Social History (Reviewed 07/26/23 @ 10:16 by Jerod
[2023-07-26 12:45] VITALS: BP 160/54; PULSE 84; RESP 20; TEMP 36.8; O2SAT 97
== END 2023-07-26 12:45 | disposition home or self-care (01) ==
PROVIDERS: Emergency Provider Emergency Medicine; PCP Family Medicine
DX: S20.219A Contusion of unspecified front wall of thorax, initial encounter (principal); W19.XXXA Unspecified fall, initial encounter; I48.91 Unspecified atrial fibrillation; N18.30 Chronic kidney disease, stage 3 unspecified; E11.22 Type 2 diabetes mellitus with diabetic chronic kidney disease; E78.5 Hyperlipidemia, unspecified; I50.20 Unspecified systolic (congestive) heart failure; I13.0 Hypertensive heart and chronic kidney disease with heart failure and stage 1 through stage 4 chronic kidney disease, or unspecified chronic kidney disease; Z87.891 Personal history of nicotine dependence
CPT/HCPCS: 71101; 72070; 72100; 74018; 74176; 99284

== ENCOUNTER 2024-11-12 08:48 | Outpatient (RCR) | payer MEDICARE, OTHER, SELFPAY ==
--- NOTE | 2024-11-12 09:45 | OPREHPOC ---
Outpatient Therapy Plan of Care This is a Multidisciplinary Plan of Care that may contain components documented by all disciplines (PT, OT, and ST.) PT Problem 1 PT Problem #1 Knowledge Deficit PT Goal 1 Goal / Goal Update independent and compliant with HEP Target Visit 4 PT Problem 2 PT Problem #2 Pain PT Goal 1 Goal / Goal Update patient to report no pain at rest patient to report no more than 2/10 pain at worst in the R side neck Target Visit 12 PT Problem 3 PT Problem #3 Impaired Range of Motion PT Goal 1 Goal / Goal Update 60 degrees or better active R cevical rotation 25 degrees or better active R side bending PT Problem 4 PT Problem #4 Impaired Functional Mobility PT Goal 1 Goal / Goal Update patient to safely drive without issues looking over shoulders ndi to display less than 10% functional deficits Target Visit 12
--- NOTE | 2024-11-12 09:46 | PTOPEVAL1 ---
Assessment and note entered by JT File, PT Evaluation Information Assessment Status Evaluation ICD-10 Condition Codes (PT) Cervicalgia M54.2 Onset 11/05/24 Subjective Information patient reports he has pain in his neck. he reports the pain has been going on for about a week and a half. he reports he woke up from sleep and the R side of his neck was killing him. he reports he was unable to sleep the next night due to the pain. he reports he took some OTC meds and this has helped, but his pain is still there and affects his safey of driving. he reports he has had pain off and on in the neck for years. he does not recall any injury or change in his activities that has sparked this increased pain. he reports he has had no xrays or medication changes. Reported Pain Level Pain Score 3: Self Report Assessment PT Clinical Summary mr. bravo is an 84 yo man who presents to skilled PT services for evaluation and treatment of R sided neck pain of insidious onset. he presents today with pain in the R side of the neck and rest and with activity, decreased cervical rom, and poor posture. continued skilled PT is indicated to improve his objective/functional deficits and return to his prior level functional activity performance/quality of life. one of his main goals is to continue to safely drive which requires him to look over his R shoulder to see traffic. Plan of Care Interventions Electrical Stimulation,Hot Pack/Cold Pack,Manual Therapy,Mechanical Traction,Neuro Re-education, Patient/Caregiver Education,Therapeutic Activities ,Therapeutic Exercise PT Services Indicated Yes Treatment Frequency and 3x weekly for 12 visits Duration These treatments will address the objective and functional deficits as defined above. The patient will be advanced safely and appropriately in order for the patient to progress towards his/her prior level of function. Additional exercises will be introduced and as well as a comprehensive home exercise program upon discharge, if needed, ?to ensure carryover of functional gains achieved in the clinic. This treatment plan has been reviewed and agreement upon by the patient.
--- NOTE | 2024-11-26 11:04 | OPREHPOC ---
Outpatient Therapy Plan of Care This is a Multidisciplinary Plan of Care that may contain components documented by all disciplines (PT, OT, and ST.) PT Problem 1 PT Problem #1 Knowledge Deficit PT Goal 1 Goal / Goal Update independent and compliant with HEP Target Visit 4 Progress Met PT Problem 2 PT Problem #2 Pain PT Goal 1 Goal / Goal Update patient to report no pain at rest patient to report no more than 2/10 pain at worst in the R side neck Target Visit 12 Progress Met PT Problem 3 PT Problem #3 Impaired Range of Motion PT Goal 1 Goal / Goal Update 60 degrees or better active R cevical rotation 25 degrees or better active R side bending Progress Met PT Problem 4 PT Problem #4 Impaired Functional Mobility PT Goal 1 Goal / Goal Update patient to safely drive without issues looking over shoulders -met ndi to display less than 10% functional deficits - progress Target Visit 12 Progress Partially Met
--- NOTE | 2024-11-26 11:04 | PTOPDC ---
Assessment and note entered by Thania Jarvis, PT Evaluation Information Assessment Status Discharge ICD-10 Condition Codes (PT) Cervicalgia M54.2 Onset 11/05/24 Subjective Information Pt reports his neck has been feeling a lot better with physical therapy, however he would like to be discharged this date as therapy is interfering with his other appointments. He does not reduced pain overall and improved ability to turn his head to look over his shoulder when driving. He denies pain at rest and notes only 1/10 pain when turning his head to the R. Reported Pain Level Pain Score 0: Self Report Assessment PT Clinical Summary Mr. Rush has attended 7 skilled PT visits addressing neck pain. He notes reduction in neck pain overall, improved ability to look over his shoulder when driving, and reduction in perceived disability on NDI. He has also met his goals addressing cervical AROM and has been independent with his HEP, and therefore skilled PT intervention is no longer indicated. Educated pt continued performance of HEP to maintain progress. Plan of Care PT Services Indicated No
== END 2024-11-26 13:21 | disposition home or self-care (01) ==
LOC: CHSPT 08:48
PROVIDERS: PCP Family Medicine; Visit Provider Family Medicine
DX: M54.2 Cervicalgia (principal); G89.29 Other chronic pain
CPT/HCPCS: 97014; 97110; 97140; 97161; G0283

== ENCOUNTER 2025-01-29 10:40 | Outpatient (CLI) | payer MEDICARE, OTHER, SELFPAY ==
--- NOTE | ~2025-01-29 | MR_ITS ---
EXAMINATION: MR brain IAC wo con DATE: 01/29/2025 11:27 INDICATION: Right ear tinnitus. TECHNIQUE: Magnetic resonance imaging (MRI) of the brain, brainstem, and internal auditory canals was performed without intravenous contrast. COMPARISON: None. FINDINGS: There are scattered areas of nonspecific increased T2-weighted signal intensity in the cerebral white matter, which is within normal limits for the patient's age. There is no intracranial hemorrhage, acute infarction, or abnormal intracranial mass lesion. The ventricles are normal in size. The internal auditory canals, inner ears, tympanic cavities, and mastoid air cells are normal. There is mucosal thickening in the paranasal sinuses. There are likely changes of ocular lens replacement surgeries. IMPRESSION: 1. Normal aging brain. Reviewed, dictated and finalized at location E. IMPRESSION: 1. Normal aging brain.
== END 2025-01-29 10:41 | disposition home or self-care (01) ==
LOC: CHSIMG 10:41
PROVIDERS: PCP Family Medicine; Visit Provider Family Medicine
DX: H93.11 Tinnitus, right ear (principal)
CPT/HCPCS: 70551